=== PATIENT | male | born 1985 | race African-American/Black ===

== ENCOUNTER 2016-07-30 05:50 | Emergency (ER) | payer OTHER, SELFPAY ==
[~2016-07-30] VITALS: Ht 190.5 cm; Wt 74.8 kg
[2016-07-30 06:45] LABS: MEAN CORPUSCULAR HEMOGLOBIN 33.4 pg (27.0-33.0); MEAN CORPUSCULAR HGB CONC 33.8 g/dl (32.0-36.5); MEAN CORPUSCULAR VOLUME 98.9 fl (80.0-96.0); RED CELL DISTRIBUTION WIDTH 12.7 % (11.5-14.5); WHITE BLOOD COUNT 6.2 K/mm3 (4.0-10.0)
[2016-07-30 07:08] LABS: ALBUMIN/GLOBULIN RATIO 0.87 (1.00-1.93); ALKALINE PHOSPHATASE 58 U/L (45-117); ALT/SGPT 46 U/L (12-78); ANION GAP 9 MEQ/L (8-16); AST/SGOT 33 U/L (15-37); BILIRUBIN,DIRECT 0.1 MG/DL (0.0-0.2); BILIRUBIN,TOTAL 0.6 MG/DL (0.2-1.0); BLOOD UREA NITROGEN 14 MG/DL (7-18); CALCIUM LEVEL 8.5 MG/DL (8.5-10.1); CARBON DIOXIDE LEVEL 26 MEQ/L (21-32); CHLORIDE LEVEL 107 MEQ/L (98-107); CREATININE FOR GFR 0.98 MG/DL (0.70-1.30); GLOMERULAR FILTRATION RATE > 60.0 (>60); GLUCOSE, FASTING 118 MG/DL (70-105); POTASSIUM SERUM 3.1 MEQ/L (3.5-5.1); SODIUM LEVEL 142 MEQ/L (136-145); TOTAL PROTEIN 8.6 GM/DL (6.4-8.2)
[2016-07-30 07:14] LABS: AMPHETAMINES LEVEL URINE NEGATIVE (NEGATIVE); BENZODIAZEPINES URINE NEGATIVE (NEGATIVE); COCAINE METABOLITE URINE NEGATIVE (NEGATIVE)
[2016-07-30 07:15] LABS: CONTROL LINE INT CTR LINE PRESENT; METHADONE URINE NEGATIVE (NEGATIVE); OPIATES URINE NEGATIVE (NEGATIVE); TRICYCLIC ANTIDEPRESS URINE NEGATIVE (NEGATIVE)
[2016-07-30] MEDS ORDERED: POTASSIUM CHLORIDE 10 MEQ SR TABLET As Ordered ONE (07:37)
--- NOTE | 2016-07-30 08:00 | REPUSA ---
CLINICAL HISTORY: AMS. TECHNIQUE: Multiple axial brain CT scan sections were obtained from base to vertex without contrast a dministration. COMMENTS: The study shows normal configuration of sella turcica. There are no intra or extra-axial collections. There is no mass effect or midline shift. There is no evidence of hematoma formation. No hydrocephal us is present. No abnormal calcifications are noted. No significant abnormalities are seen either in the posterior fossa or supratentorial compartment. The sinuses and mastoid air cells are patent. IMPRESSION: No evidence of acute intracranial pathology. Thank you for your kind referral of this patient.
--- NOTE | 2016-07-30 19:29 | ECGEPIP ---
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
--- NOTE | 2016-07-31 08:48 | EDDOCDS ---
Physician Documentation [facility] Name: Chintan Alejandra Age: 31 yrs Sex: Male : 1985 Arrival Date: 07/30/2016 Time: 05:50 Bed OBSERVATION Private MD: Unknown, Family Disposition: 07/30/16 20:15 Transfer ordered to [facility]. 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 - Reason for transfer: Higher level of care. - Accepting physician is Dr. Calderón. - Condition is Stable. - Problem is an ongoing problem. - Symptoms are unchanged. Historical: - Allergies: No known drug Allergies; - Home Meds: 1. none - PMHx: Seasonal Allergies; Substance Abuse; - PSHx: none; - Social history: Smoking status: Patient uses tobacco products, heavy tobacco smoker. Patient uses alcohol street drugs, marijuana, cocaine, No barriers to communication noted, The patient speaks fluent Belgian. - Family history: Not pertinent. - : The pt / caregiver states he / she is not on anticoagulants. Home medication list is obtained from the patient. - Exposure Risk Screening:: None identified. Vital Signs: 07/30 05:58 BP 164 / 88; Pulse 96; Resp 18; Temp 97.6(O); Pulse Ox 98% on R/A; Weight 74.84 kg / mdr 164.99 lbs (M); Height 6 ft. 3 in. (190.50 cm) (R); Pain 0/10; 07:00 BP 166 / 70 (auto/); dls 07:00 Pulse 87 MON; Pulse Ox 97% ; dls 07:30 BP 142 / 82 (auto/); dls 07:30 Pulse 81 MON; Pulse Ox 98% ; dls 08:00 BP 149 / 85 (auto/); dls 08:00 Pulse 86 MON; Pulse Ox 96% ; dls 08:30 BP 144 / 72 (auto/); dls 08:30 Pulse 79 MON; Pulse Ox 99% ; dls 11:53 BP 138 / 74; Pulse 82; Resp 16; Temp 97.0(T); Pulse Ox 99% on R/A; Pain 0/10; dwg 18:00 BP 152 / 95; Pulse 88; Resp 18; Temp 98.3; Pulse Ox 96% on R/A; Pain 0/10; ttb 23:07 BP 124 / 86; Pulse 79; Resp 18; Temp 97.6; Pulse Ox 98% on R/A; Pain 0/10; tmm1 07/31 06:04 BP 119 / 67; Pulse 69; Resp 18; Temp 96.0(T); Pulse Ox 98% on R/A; Pain 0/10; slm 08:37 BP 125 / 74; Pulse 65; Resp 16; Temp 96.4(O); Pulse Ox 95% on R/A; Pain 0/10; bcj 07/30 05:58 Body Mass Index 20.62 (74.84 kg, 190.50 cm) mdr MDM: 07/30 06:38 Consult PFS/PSA/[employer]usher ordered. ml 06:38 Consult PFS/PSA/[employer] Brusher: Patient's case requires discussion with on-call ml Psychiatrist ordered. 06:38 PSA/PFS to call Nursing [employer], to enter patient data on [place] Safe Act if patient ml involuntarily admitted or transferred for SI or HI ordered. 06:38 Rn Interventional/Pulse Ox/q 15 min VS ordered. ml 06:38 Confirm accurate psychiatric medication list and times of last dosage ordered. ml 06:38 Detain Pt Until Medically/PFS Cleared ordered. ml 06:38 IV Saline Lock ordered. ml 06:38 Rhythm Strip to chart ordered. ml 06:39 ECG WITH READING ER PHYS+CARDIAG ordered. EDMS 06:40 Acetaminophen Level Ordered. EDMS 06:40 Basic Metabolic Profile Ordered. EDMS 06:40 Complete Blood Count Ordered. EDMS 06:40 Drug Eval Toxicology ED Only Ordered. EDMS 06:40 Ethyl Alcohol (ethanol) Ordered. EDMS 06:40 Liver Profile Ordered. EDMS 06:40 Salicylate Level Ordered. EDMS 06:40 Thyroid Stimulating Hormone Ordered. EDMS 06:55 CT Head Without Contrast Ordered. EDMS 07:26 Acetaminophen Level Reviewed. ml 07:26 Basic Metabolic Profile Reviewed. ml 07:26 Complete Blood Count Reviewed. ml 07:26 Drug Eval Toxicology ED Only Reviewed. ml 07:26 Liver Profile Reviewed. ml 07:26 Salicylate Level Reviewed. ml 07:26 Ethyl Alcohol (ethanol) Reviewed. ml 07:26 Thyroid Stimulating Hormone Reviewed. ml 07:26 Potassium Chloride Extended Release Tablet 40 mEq PO once ordered. ml 07:27 REGULAR+DIET ordered. EDMS 07:57 Misc. Nursing Order ordered. ml 08:36 Financial registration complete. mpb 08:45 [facility] [place] was [place] into [employer] and attached to record. mpb 11:01 REGULAR DIET PLASTIC SWARTZ+DIET ordered. EDMS 11:46 Consult PFS/PSA/[employer] Brusher complete. ml4 11:46 Consult PFS/PSA/[employer] Brusher: Patient's case requires discussion with on-call ml4 Psychiatrist complete. 11:46 PSA/PFS to call Nursing [employer], to enter patient data on [place] Safe Act if patient ml4 involuntarily admitted or transferred for SI or HI complete. 12:31 BED REQUEST+ADM ordered. EDMS 13:39 SYNTHETIC THC URINE Ordered. EDMS 17:00 Seclusion, Adult: Patient may be secluded due to violent/destructive behavior for up to ml 1 hr ordered. 17:00 ED course: per jared, this pt walked into a female pediatric room and found speaking ml to her. The pediatric patient screamed for assistance. LEXI Gonzalez immediately presented to her room. the pt and the other pediatric pt. I ordered seclusioon for an hour. mlg. 17:20 REGULAR DIET ROOM SERVICE ED+DIET ordered. EDMS 18:43 Discontinue Restraint / Seclusion ordered. ml 18:43 ED course: pt cooperative and seclusion order d/c. pt signed out to Dr skaggs at 7 pm ml mlg. 18:59 ED course: pt signed out to dr skaggs. pending psych disposition.mlg. ml 07/31 05:15 REGULAR DIET PLASTIC SWARTZ+DIET ordered. EDMS Administered Medications: 07/30 07:39 Drug: Potassium Chloride 40 mEq [potassium chloride ER 10 mEq tablet,extended release dls (4 tabs)] Route: PO; Signatures: Dispatcher [employer] EDTX Anny Vázquez MD MD ml Jobson, Karen, RN RN Julita Madera RN RN dls Treadwell, Michelle, LEXI ELLIOTT mlSven White DO DO mm11 Heather Rhodes RN RN nn1 Riky Patton, Reg Reg mpb The chart was reviewed and I authenticate all verbal orders and agree with the evaluation and treatment provided.Attachments: 08:45 [facility] Payment Agreement mpb MTDD
--- NOTE | 2016-07-31 08:48 | EDDOCDS ---
Nurse's Notes [facility] Name: Shahriar Hummel Age: 31 yrs Sex: Male : 1985 Arrival Date: 07/30/2016 Time: 05:50 Bed OBSERVATION Private MD: Matteo, Family Dr Diagnosis: Unspecified psychosis not due to a substance or known physiological condition Presentation: 07/30 05:52 Presenting complaint: EMS states: patient found wandering outside by PD, patient nn1 confused/altered. Patient does not know how long he was outside for, found with no shoes/socks or jacket. Patient admits to ETOH use tonight and smoking marijuana. States he was recently discharged from [facility], admitted to EMS he relapsed tonight. FSBS 151, 18G LAC. Adult Sepsis Screening: Patient has new or worsening altered mentation (1 point). Patient's respiratory rate is less than 22. Systolic blood pressure is greater than 100. Patient has a qSOFA score of 1- Negative Sepsis Screen. Suicide/Homicide risk assessment- the patient denies having any suicidal and/or homicidal ideations and does not present with any other emotional, behavioral or mental health complaints. Status: Patient is not a bicycle service technician or dependent. Transition of care: patient was not received from another setting of care. 05:52 Acuity: NUSRAT Level 3 nn1 05:52 Method Of Arrival: Ambulance nn1 Triage Assessment: 05:57 General: Appears in no apparent distress, Behavior is cooperative. General: Patient has nn1 periods of confusion where he speaks to himself, states "he was trying to find himself". . Pain: Denies pain. HIV screening NA for this visit Offered previously. The patient is triaged at the bedside. See Assessment in Nurses Notes section of ED record. Neurological: Level of Consciousness is awake, alert, obeys commands, Oriented to person, place, time. Neurological: Level of Consciousness is confused, Oriented to. Respiratory: Airway is patent Respiratory effort is even, unlabored, Respiratory pattern is regular, symmetrical. Respiratory: Breath sounds are clear bilaterally. GI: Abdomen is non- distended GI: Bowel sounds present X 4 quads. Abd is soft and non tender X 4 quads. Derm: Skin is normal. Historical: - Allergies: No known drug Allergies; - Home Meds: 1. none - PMHx: Seasonal Allergies; Substance Abuse; - PSHx: none; - Social history: Smoking status: Patient uses tobacco products, heavy tobacco smoker. Patient uses alcohol street drugs, marijuana, cocaine, No barriers to communication noted, The patient speaks fluent [place]. - Family history: Not pertinent. - : The pt / caregiver states he / she is not on anticoagulants. Home medication list is obtained from the patient. - Exposure Risk Screening:: None identified. Screenin:10 Screening information is obtained from the patient. Fall risk: No risks identified. dls Assistance ADL's: requires no assistance with activities of daily living. Abuse/DV Screen: The patient / caregiver reports he/she is: not in a situation that causes fear, pain or injury. Nutritional screening: No deficits noted. Advance Directives: Currently, there is no health care proxy. There is no active DNR order. There is no living will. There is no Power of Shipping And Receiving. home support is adequate. Assessment: 00:00 General: Appears in no apparent distress, comfortable, Behavior is. ttb 06:00 General: See triage assessment.. nn1 06:55 General: Patient continues to have bizarre speech and bizarre behavior, attempting to nn1 take off leads. Patient redirected, patient calm at this time. . 07:11 General: Pt to CT and returned.. dls 07:23 General: Pt states he is starting to remember things is alert and oriented awaiting lab dls and CT results.. 08:36 General: Pt laughing and pleasant only ate a few bites of breakfast frequently talking dls to himself and his food medically cleared by MD.. 09:01 General: Pt transferred to P5 report given pt remains cooperative with staff.. dls 09:35 General: Report received from Irina Hawthorne RN, pacing in room, cooperative.. dwg 10:36 General: Appears in no apparent distress, Behavior is cooperative. General: Calm and dwg cooperative presently.. Pain: Denies pain. 11:51 General: Appears in no apparent distress, Behavior is cooperative. Neurological: Level dwg of Consciousness is awake, alert, Oriented to States does not know where he lives or works. Yessi GUY attempting to find info through interview with patient.. 13:28 General: report received from MONTY Du to continue care. Pt sitting in room. Eating ttb lunch. Quiet and calm at this time. NAD noted. Security monitoring pt .. 14:30 Reassessment: Patient appears in no apparent distress at this time. ttb 14:30 General: Appears in no apparent distress, comfortable, Behavior is cooperative, flat. ttb Neurological: Level of Consciousness is awake, alert, Oriented to pt in room, appears to be praying at times, reading..... Respiratory: Airway is patent Respiratory effort is even, unlabored, Respiratory pattern is regular, symmetrical. Derm: Skin is normal. 15:30 Reassessment: Patient appears in no apparent distress at this time. pt in and out of ttb room, wandering. Appears to be curious. Attempts to leave BHU unit but calm. Able to be redirected easily with distraction. . 15:30 General: Appears in no apparent distress, comfortable. Neurological: Level of ttb Consciousness is awake, alert. Respiratory: No deficits noted. 15:59 General: pt given [place]. Continues to wander, be restless in room. Comes out of ttb room at times. Easily redirectable, calm but very flat affect. . 16:40 General: Appears in no apparent distress, comfortable, Behavior is quiet, pt walking ttb into another patients room. Non violent, remains redirectable, however clearly not acting appropriately, seems confused. aware.. 17:00 General: Appears in no apparent distress, comfortable, to be sleeping. seclusion ttb started . 17:15 Reassessment: Patient appears in no apparent distress at this time. General: Appears in ttb no apparent distress, comfortable, to be sleeping. Respiratory: No deficits noted. Airway is patent. 17:30 Reassessment: Patient appears in no apparent distress at this time. General: Appears in ttb no apparent distress, comfortable, to be sleeping. Respiratory: No deficits noted. Airway is patent. 17:45 General: Appears in no apparent distress, comfortable. Neurological: Level of ttb Consciousness is awake, alert. 18:00 General: pt calm and cooperative, remains flat. Taken off seclusion d/t time ttb expiration. Pt in bathroom. NAD noted. Security monitoring.. 19:00 General: Appears in no apparent distress, comfortable, Behavior is cooperative. kmg1 20:00 Reassessment: Patient appears in no apparent distress at this time. Remains kmg1 cooperative. Leaving room on occasion but is easily redirectable. 21:30 General: Appears in no apparent distress, comfortable, Behavior is cooperative, kmg1 Watching Happy Feet on DVD at this time. 23:16 General: Appears in no apparent distress, comfortable, Behavior is flat. General: pt slm resting quietly on stretcher security observing . Respiratory: Airway is patent Respiratory effort is even, unlabored. Derm: Skin is normal. 23:30 General: Appears in no apparent distress, Behavior is pt in bathroom on one knee in slm shower area singing to shower pt with bizarre behavior . pt redirected back to room . 07/31 00:21 General: Appears in no apparent distress, comfortable, Behavior is cooperative. slm General: pt resting on stretcher security observing . Respiratory: Airway is patent Respiratory effort is even, unlabored. Derm: Skin is normal. 01:30 General: Appears in no apparent distress, comfortable, to be sleeping. Behavior is slm quiet. General: security observing . Respiratory: No deficits noted. 02:30 General: Appears in no apparent distress, comfortable, to be sleeping. Behavior is slm cooperative, quiet. General: security observing . Respiratory: No deficits noted. Derm: Skin is normal. 03:44 General: Appears in no apparent distress, comfortable, to be sleeping. Behavior is slm quiet. General: security observing . Respiratory: Airway is patent Respiratory effort is even, unlabored. 04:40 General: Appears in no apparent distress, comfortable, to be sleeping. Behavior is slm cooperative, quiet. General: security observing . Respiratory: Airway is patent Respiratory effort is even, unlabored. 06:05 General: Appears in no apparent distress, comfortable, Behavior is cooperative. slm General: pt resting on stretcher security observing . Neurological: Level of Consciousness is alert, obeys commands. Respiratory: Airway is patent Respiratory pattern is regular. Respiratory: Airway is patent Respiratory effort is even, unlabored. 07:43 General: Appears in no apparent distress, comfortable, Behavior is cooperative. Pain: bcj Denies pain. Neurological: Level of Consciousness is awake, alert, Oriented to person, place. 08:37 General: Appears in no apparent distress, comfortable, Behavior is cooperative. Pain: bcj Denies pain. Neurological: Level of Consciousness is awake, alert. Derm: Skin is dry, Skin is pink, warm & dry. Mental Health Eval: 07/30 11:46 Mental health consult is initiated at 11:00. Status: The patient is not a ml4 bicycle service technician or dependent. [facility] Behavioral Health: The patient is not an established patient of [facility] Behavioral Health. Referral Information: Evaluation referral is generated by EMS, pt was found wandering outside by PD with no shoes/socks or jackets within his apt complex. He was confused and altered, admitted using Marijuana and ETOH. Pt was medically worked up and is now cleared, however still acting bizarre which prompted a MHE. . Subjective: The patients chief complaint is pt states, "I'm here because we are all here." Pt appears very bizarre at bedside, laughing inappropriately, states he is "trying to find himself." Pt appears somewhat pre-occupied, pauses briefly before answering questions. PSA questioned pt regarding AH and pt responded, "no other than my inner voice." It is very difficult to obtain collateral information due to pt's level of psychosis, therefore his roommate was contacted. Roommate(Krishna Forrester, ) reports pt has been residing with him and his GF for the past month after pt's relationship was terminated. Roommate feels pt was acting fine last night and unaware of previous mental health hx. Roommate states pt drank 1/2 beer and smoked Marijuana together while watching the Basket Ball game, then pt went to smoke a cigarette(with proper winter attire) on the balcony right before he went to bed. No bizarre behavior was noted, other than pt making references of his daughter. Roommate was unaware pt had a daughter, therefore was questioning him which triggered pt to "shutdown." Pt is currently in room reading a bible, roommate admits pt is a rastafari man and that is not abnormal. Pt continues to act bizarre at bedside, pulling his stretcher in and out of the room, but is easily redirected. As interview concluded, pt became tearful while talking about his Mother's . Admits she passed in 2000 after protecting him. Pt states," the world had an operation and I was selfish because I was trying to understand myself,." He is unable to explain Mother's in detail. Pt denies SI and HI. According to the triage note, it was noted pt was recently discharged from [facility] [address], however unable to obtain. . Patient's mood is appropriate. hallucinations are denied, however suspected . Mental Health history: Pt reports in 2000, he was hospitalized in [place] after "trying to understand myself." . Current Outpatient Mental Health Services: None. Current living environment is The patient currently lives with a roommate, Krishna Forrester, ) . The patient is single. Patient presents to Emergency Department with the following symptoms within the past 2 weeks: alcohol abuse, decreased appetite, delusions of grandeur, drug abuse, Auditory Hallucinations are suspected. Pt was also noted to be "talking to his food." . paranoia, poor concentration, poor impulse control, psychosis. Substance abuse: Patient uses tobacco Last use was last night. Pt states, "it doesn't really matter how much I use, it was in the past." . Substance abuse: Patient uses of Alcohol. Patient uses marijuana. Mental status exam: Patients appearance is appropriate, Patient's behavior is bizarre, Speech is normal. Affect is restricted. Mood is appropriate. Auditory Hallucinations are suspected. Visual Hallucinations are suspected. Appetite is poor. Memory is poor. Energy level is normal. Content of thought is delusional. as described above Thought process is incoherent. Cognitive level is Oriented to person, place, Patient's insight is poor. Judgement is poor. Rapport with interviewer is poor. guarded. Suicidal Ideation is denied. Homicidal ideation is denied. Disposition: Medically cleared for disposition by Anny Vázquez MD. Narrative: Awaiting Psychiatric consult... 13:38 Disposition: Psychiatric Consult is performed by phone with Dr Rose Villalta The patient ml4 is to be transferred to accepting facility due to [facility] being at capacity. [facility] Admission Criteria: The patient displays symptoms of severe psychiatric disorder resulting in disordered behavior and significant interference with his / her ability to maintain self care. Hallucinations. The patient requires continuous observation and/or control to protect self, others or property. The patient's care requires a multi-modal treatment plan under close supervision and coordination due to the complexity and severity of the patient's symptoms. The patient requires administration and monitoring of psychoactive medications by skilled medical providers due to the side effects of the psychoactive medications or significant dosage adjustments. Legal Status: Patient's legal status will be [facility] admission: 9.37. [place] Safe [place]: [place] Safe [place] is not applicable because the patient does not display any suicidal or homicidal ideations and does not pose a risk to self or others. DSM-V Differential Diagnosis: Unspecified Psychotic Disorder (F29). Narrative: Dr. Villalta believes pt is acutely psychotic and requires hospitalization. PSA will search for bed availability due to [facility] being at capacity. 13:52 Insurance Pre-Certification: Not Required, Self-pay . Narrative: PSA contacted, [facility], [address], [facility], and [place]. All facilities are at capacity. Spoke to Jenni at [facility] who reports [facility] is full, however [facility] has one bed available. Pt's chart faxed for review, awaiting a reply. 17:11 Narrative: A seclusion order was placed after pt walk into an adolescent's room [facility] [place] requesting to sing her a song. PSA redirected pt back into his room. 17:12 Narrative: PSA spoke to Nicho at [facility]'s Transfer line and confirmed ml4 receipt, awaiting a reply. 17:48 Narrative: Spoke to Nicho who reports [facility] "is getting full" therefore is [facility] now stating [facility] has beds available. Pt's chart faxed to [facility] for review, awaiting a reply. 19:33 Narrative: Pt's 2 roommates just visited pt at bedside and noted his behavior to be ml4 "bizarre. " Apparently, pt has been rastafari, however over the past 2 wks has been reading his bible continuously . He appears to be religiously pre-occupied. Additionally, pt reported to roommate his life is not worth living anymore. 20:24 Narrative: Pt has been accepted to [facility]. Accepting Physician is Dr. Calderón. [facility] [place] 21:34 Narrative: Pt's step-Mother contact information: Fiona, #[phone]. [facility] [place] 07/31 03:12 Awaiting: arrival of EMS for transfer. cl Vital Signs: 07/30 05:58 BP 164 / 88; Pulse 96; Resp 18; Temp 97.6(O); Pulse Ox 98% on R/A; Weight 74.84 kg (M); mdr Height 6 ft. 3 in. (190.50 cm) (R); Pain 0/10; 07:00 BP 166 / 70 (auto/); dls 07:00 Pulse 87 MON; Pulse Ox 97% ; dls 07:30 BP 142 / 82 (auto/); dls 07:30 Pulse 81 MON; Pulse Ox 98% ; dls 08:00 BP 149 / 85 (auto/); dls 08:00 Pulse 86 MON; Pulse Ox 96% ; dls 08:30 BP 144 / 72 (auto/); dls 08:30 Pulse 79 MON; Pulse Ox 99% ; dls 11:53 BP 138 / 74; Pulse 82; Resp 16; Temp 97.0(T); Pulse Ox 99% on R/A; Pain 0/10; dwg 18:00 BP 152 / 95; Pulse 88; Resp 18; Temp 98.3; Pulse Ox 96% on R/A; Pain 0/10; ttb 23:07 BP 124 / 86; Pulse 79; Resp 18; Temp 97.6; Pulse Ox 98% on R/A; Pain 0/10; tmm1 07/31 06:04 BP 119 / 67; Pulse 69; Resp 18; Temp 96.0(T); Pulse Ox 98% on R/A; Pain 0/10; slm 08:37 BP 125 / 74; Pulse 65; Resp 16; Temp 96.4(O); Pulse Ox 95% on R/A; Pain 0/10; bcj 07/30 05:58 Body Mass Index 20.62 (74.84 kg, 190.50 cm) mdr Vitals: 07/30 05:57 Log In Time N/A - ambulance arrival. nn1 ED Course: 05:51 Patient visited by Grace Barba, Javascript Engineer. [facility] 05:51 Unknown, Family is Private Physician. [facility] 05:51 Patient moved to [facility] 05:55 Triage Initiated nn1 05:59 Patient visited by Jameson Champion PCA. mdr 06:09 Maintain field IV. Gauge & site: 18G LAC . IV is intact, with fluids infusing freely, nn1 with good blood return. 06:47 EKG done. (by ED staff). Reviewed by Sven Castellon DO. jmv 06:48 Patient visited by Yandel Kaplan PCA. jmv 06:50 Anny Vázquez MD is Attending Physician. ml 06:50 Patient visited by Anny Vázquez MD. ml 07:09 Report received from Madhavi MILLAN. dls 07:10 The patient / caregiver is instructed regarding the plan of care and ED course. dls 07:10 No procedures done that require assistance. dls 07:11 CT Head Without Contrast Returned. dls 07:19 Julita Hawthorne, MONTY is Primary Nurse. dls 08:07 Patient visited by Julita Hawthorne RN. dls 08:11 CT Head Without Contrast Returned. EDMS 08:44 Patient name changed from Lquarius\\S\\\\S\\Leday\\S\\ to Lquarius\\S\\ \\S\\Leday. EDMS 08:45 [facility] Payment Agreement was scanned into [email or web address] and attached to record. mpb 08:54 Patient moved to [facility] pjf 09:00 Report given to Florian Isbell RN. dls 09:00 Discontinued IV lock intact, bleeding controlled, pressure dressing applied, No dls redness/swelling at site. 09:13 Patient visited by Steve Nguyen Security Aide. pjf 09:46 Patient visited by Steve Nguyen Security Aide. pjf 10:09 Patient visited by Steve Nguyen Security Aide. pjf 10:25 Patient visited by Steve Nguyen Security Aide. pjf 10:36 Patient visited by Tay Isbell, MONTY. dwg 10:43 Patient visited by Steve Nguyen Security Aide. pjf 11:09 Patient visited by Tay Isbell, MONTY. dwg 11:32 Patient visited by Tay Isbell, MONTY. dwg 11:53 Patient visited by Tay Isbell, MONTY. dwg 12:15 Psych Safety Check: Location: Psych Room. Visual Assessment: Cooperative. dwg 12:32 Patient visited by Steve Nguyen Security Aide. pjf 12:36 Psych Safety Check: Location: Psych Room. Visual Assessment: Restless. pjf 12:45 Patient visited by Steve Nguyen Security Aide. pjf 13:17 Patient visited by Steve Nguyen Security Aide. pjf 13:35 Patient visited by Steve Nguyen Security Aide. pjf 13:54 Patient visited by Steve Nguyen Security Aide. pjf 14:11 Patient visited by Stvee Nguyen Security Aide. pjf 14:30 Security observing. ttb 14:44 Patient visited by Steve Nguyen Security Aide. pjf 15:00 Patient visited by Steve Nguyen Security Aide. pjf 15:15 Psych Safety Check: Location: Psych Room. Visual Assessment: Cooperative. pjf 15:30 Security observing. ttb 15:31 Patient visited by Steve Nguyen Security Aide. pjf 15:45 Patient visited by Steve Nguyen Security Aidashu. pjf 16:01 Patient visited by Marilyn Gonzalez RN. ttb 16:15 Psych Safety Check: Location: Psych Room. Visual Assessment: Restless. pjf 16:30 Psych Safety Check: Location: Psych Room. Visual Assessment: Restless. pjf 16:32 Report received from rn - psych. triage level #1, no obs. req. \\T\\ this time. pjf 16:37 Patient moved to [facility] pjf 16:44 Patient visited by Steve Nguyen Security Aide. pjf 16:45 Security observing. ttb 17:13 Patient visited by Steve Nguyen Security Aide. pjf 17:15 Security observing. ttb 17:31 Patient visited by Steve Nguyen Security Aidashu. pjf 17:31 Patient visited by Marilyn Gonzalez RN. ttb 17:45 Security observing. ttb 17:58 Patient visited by Steve Nguyen Security Aide. pjf 18:00 Security observing. ttb 18:19 Patient visited by Steve Nguyen Security Aide. pjf 18:41 Patient visited by Steve Nguyen Security Aide. pjf 18:58 Patient visited by Sola Marin PCA. tmm1 19:15 Patient visited by Sola Marin PCA. tmm1 19:19 Attending Physician role handed off by Anny Vázquez MD mm11 19:19 Sven Castellon DO is Attending Physician. mm11 19:20 Patient moved to OBSERVATION mm11 19:34 EKG-ADULT Returned. EDMS 19:50 Psych Safety Check: Location: Psych Room. Visual Assessment: Cooperative. tmm1 20:10 Psych Safety Check: Location: Psych Room. Visual Assessment: Cooperative. tmm1 20:25 Psych Safety Check: Location: Psych Room. Visual Assessment: Cooperative. tmm1 20:41 Psych Safety Check: Location: Psych Room. Visual Assessment: Cooperative. tmm1 21:00 Psych Safety Check: Location: Psych Room. Visual Assessment: Cooperative. tmm1 21:15 Psych Safety Check: Location: Psych Room. Visual Assessment: Cooperative. tmm1 21:36 Psych Safety Check: Location: Psych Room. Visual Assessment: Cooperative. tmm1 21:50 Psych Safety Check: Location: Psych Room. Visual Assessment: Cooperative. tmm1 22:10 Psych Safety Check: Location: Psych Room. Visual Assessment: Cooperative. tmm1 22:31 Psych Safety Check: Location: Psych Room. Visual Assessment: Cooperative. tmm1 22:46 Psych Safety Check: Location: Psych Room. Visual Assessment: Cooperative. tmm1 22:47 Primary Nurse role handed off by Julita Hawthorne RN ar3 23:07 Psych Safety Check: Location: Psych Room. Visual Assessment: Cooperative. tmm1 23:16 Nicky Cervantes LPN is Primary Nurse. slm 23:17 Patient visited by Nicky Cervantes LPN. slm 23:32 Psych Safety Check: Location: Psych Room. Visual Assessment: Cooperative. tmm1 23:45 Psych Safety Check: Location: Psych Room. Visual Assessment: Cooperative. tmm1 23:51 Patient visited by Emy Mendez RN. [facility] 07/31 00:02 Psych Safety Check: Location: Psych Room. Visual Assessment: Cooperative. tmm1 00:15 Psych Safety Check: Location: Psych Room. Visual Assessment: Cooperative. tmm1 00:30 Psych Safety Check: Location: Psych Room. Visual Assessment: Cooperative. tmm1 00:45 Psych Safety Check: Location: Psych Room. Visual Assessment: Cooperative. tmm1 01:00 Psych Safety Check: Location: Psych Room. Visual Assessment: Cooperative. tmm1 01:15 Psych Safety Check: Location: Psych Room. Visual Assessment: Cooperative. tmm1 01:30 Psych Safety Check: Location: Psych Room. Visual Assessment: Cooperative. tmm1 01:48 Psych Safety Check: Location: Psych Room. Visual Assessment: Cooperative. tmm1 02:07 Psych Safety Check: Location: Psych Room. Visual Assessment: Sleeping. tmm1 02:21 Psych Safety Check: Location: Psych Room. Visual Assessment: Sleeping. tmm1 02:41 Psych Safety Check: Location: Psych Room. Visual Assessment: Cooperative. tmm1 02:48 Psych Safety Check: Location: Psych Room. Visual Assessment: Sleeping. tmm1 03:01 Psych Safety Check: Location: Psych Room. Visual Assessment: Sleeping. tmm1 03:57 Psych Safety Check: Location: Psych Room. Visual Assessment: Sleeping. tmm1 04:15 Psych Safety Check: Location: Psych Room. Visual Assessment: Sleeping. tmm1 04:31 Psych Safety Check: Location: Psych Room. Visual Assessment: Sleeping. tmm1 04:44 Psych Safety Check: Location: Psych Room. Visual Assessment: Sleeping. tmm1 04:59 Psych Safety Check: Location: Psych Room. Visual Assessment: Cooperative. tmm1 05:01 Patient visited by Nicky Cervantes LPN. slm 05:15 Psych Safety Check: Location: Psych Room. Visual Assessment: Cooperative. tmm1 05:37 Psych Safety Check: Location: Psych Room. Visual Assessment: Sleeping. tmm1 05:51 Psych Safety Check: Location: Psych Room. Visual Assessment: Cooperative. tmm1 06:06 Patient visited by Nicky Cervantes LPN. slm 06:11 Psych Safety Check: Location: Psych Room. Visual Assessment: Cooperative. tmm1 06:28 Psych Safety Check: Location: Psych Room. Visual Assessment: Cooperative. tmm1 06:46 Patient visited by Sola Marin PCA. tmm1 07:12 Patient visited by John Leggett. rn1 07:17 Patient visited by John Leggett. rn1 07:30 Patient visited by John Leggett. rn1 07:43 Appears to be sleeping. Awaiting disposition. bcj 07:43 Security observing. bcj 07:45 Patient visited by John Leggett. rn1 07:54 Patient visited by Kenneth Kent, MONTY. bcj 08:01 Patient visited by John Leggett. rn1 08:15 Patient visited by John Leggett. rn1 08:34 Patient visited by John Leggett. rn1 08:46 Patient visited by John Leggett. rn1 Administered Medications: 07/30 07:39 Drug: Potassium Chloride 40 mEq [potassium chloride ER 10 mEq tablet,extended release dls (4 tabs)] Route: PO; Order Results: Lab Order: Acetaminophen Level; SPEC07/30/16 06:09 Test: ACETAMINOPHEN LEVEL; Value: < 2.0; Range: 10.0-30.0; Abnormal: Below low normal; Units: UG/ML; Status: F Lab Order: Basic Metabolic Profile; SPEC07/30/16 06:09 Test: GLUCOSE, FASTING; Value: 118; Range: 70-105; Abnormal: Above high normal; Units: MG/DL; Status: F Test: BLOOD UREA NITROGEN; Value: 14; Range: 7-18; Units: MG/DL; Status: F Test: CREATININE FOR GFR; Value: 0.98; Range: 0.70-1.30; Units: MG/DL; Status: F Test: GLOMERULAR FILTRATION RATE; Value: > 60.0; Range: >60; Status: F Test: SODIUM LEVEL; Value: 142; Range: 136-145; Units: MEQ/L; Status: F Test: POTASSIUM SERUM; Value: 3.1; Range: 3.5-5.1; Abnormal: Below low normal; Units: MEQ/L; Status: F Test: CHLORIDE LEVEL; Value: 107; Range: 98-107; Units: MEQ/L; Status: F Test: CARBON DIOXIDE LEVEL; Value: 26; Range: 21-32; Units: MEQ/L; Status: F Test: ANION GAP; Value: 9; Range: 8-16; Units: MEQ/L; Status: F Test: CALCIUM LEVEL; Value: 8.5; Range: 8.5-10.1; Units: MG/DL; Status: F Test Note: ; Units are mL/min/1.73 m2 Chronic Kidney Disease Staging per NKF: Stage I & II GFR >=60 Normal to Mildly Decreased Stage III GFR 30-59 Moderately Decreased Stage IV GFR 15-29 Severely Decreased Stage V GFR <15 Very Little GFR Left ESRD GFR <15 on MID LEVEL BUSINESS ANALYST Lab Order: Complete Blood Count; SPEC'07/30/16 06:09 Test: WHITE BLOOD COUNT; Value: 6.2; Range: 4.0-10.0; Units: K/mm3; Status: F Test: RED BLOOD COUNT; Value: 4.02; Range: 4.30-6.10; Abnormal: Below low normal; Units: M/mm3; Status: F Test: HEMOGLOBIN; Value: 13.4; Range: 14.0-18.0; Abnormal: Below low normal; Units: g/dl; Status: F Test: HEMATOCRIT; Value: 39.7; Range: 42.0-52.0; Abnormal: Below low normal; Units: %; Status: F Test: MEAN CORPUSCULAR VOLUME; Value: 98.9; Range: 80.0-96.0; Abnormal: Above high normal; Units: fl; Status: F Test: MEAN CORPUSCULAR HEMOGLOBIN; Value: 33.4; Range: 27.0-33.0; Abnormal: Above high normal; Units: pg; Status: F Test: MEAN CORPUSCULAR HGB CONC; Value: 33.8; Range: 32.0-36.5; Units: g/dl; Status: F Test: RED CELL DISTRIBUTION WIDTH; Value: 12.7; Range: 11.5-14.5; Units: %; Status: F Test: PLATELET COUNT, AUTOMATED; Value: 151; Range: 150-450; Units: k/mm3; Status: F Lab Order: Drug Eval Toxicology ED Only; SPEC'M 07/30/16 06:09 Test: AMPHETAMINES LEVEL URINE; Value: NEGATIVE; Range: NEGATIVE; Status: F Test: BARBITURATES URINE; Value: NEGATIVE; Range: NEGATIVE; Status: F Test: BENZODIAZEPINES URINE; Value: NEGATIVE; Range: NEGATIVE; Status: F Test: CANNABINOIDS URINE; Value: POSITIVE; Range: NEGATIVE; Abnormal: Above high normal; Status: F Test: COCAINE METABOLITE URINE; Value: NEGATIVE; Range: NEGATIVE; Status: F Test: METHADONE URINE; Value: NEGATIVE; Range: NEGATIVE; Status: F Test: OPIATES URINE; Value: NEGATIVE; Range: NEGATIVE; Status: F Test: TRICYCLIC ANTIDEPRESS URINE; Value: NEGATIVE; Range: NEGATIVE; Status: F Test Note: ; FALSE POSITIVE RESULTS CAN BE CAUSED BY THE USE OF PANTOPRAZOLE (PROTONIX). Lab Order: Ethyl Alcohol (ethanol); SPEC'M 07/30/16 06:09 Test: ETHYL ALCOHOL (ETHANOL); Value: < 0.003; Range: 0.000-0.010; Units: %; Status: F Lab Order: Liver Profile; SPEC'M 07/30/16 06:09 Test: AST/SGOT; Value: 33; Range: 15-37; Units: U/L; Status: F Test: ALT/SGPT; Value: 46; Range: 12-78; Units: U/L; Status: F Test: ALKALINE PHOSPHATASE; Value: 58; Range: 45-117; Units: U/L; Status: F Test: BILIRUBIN,TOTAL; Value: 0.6; Range: 0.2-1.0; Units: MG/DL; Status: F Test: BILIRUBIN,DIRECT; Value: 0.1; Range: 0.0-0.2; Units: MG/DL; Status: F Test: TOTAL PROTEIN; Value: 8.6; Range: 6.4-8.2; Abnormal: Above high normal; Units: GM/DL; Status: F Test: ALBUMIN; Value: 4.0; Range: 3.2-5.2; Units: GM/DL; Status: F Test: ALBUMIN/GLOBULIN RATIO; Value: 0.87; Range: 1.00-1.93; Abnormal: Below low normal; Status: F Lab Order: Salicylate Level; SPEC'07/30/16 06:09 Test: SALICYLATE LEVEL; Value: 3.1; Range: 5.0-30.0; Abnormal: Below low normal; Units: MG/DL; Status: F Lab Order: Thyroid Stimulating Hormone; SPEC'07/30/16 06:09 Test: THYROID STIMULATING HORMONE; Value: 0.969; Range: 0.358-3.740; Units: uIU/ML; Status: F Radiology Order: EKG-ADULT Test: EKG-ADULT REASON FOR EXAMINATION: POSSIBLE OD; Stationary ECG Study; [facility] - ED; ; Test Date: 2016-07-30; Pat Name: SHAHRIAR HUMMEL Department:; Room: -; Gender: M 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; : 1985 Requested By: Anny Vázquez; Order Number: [id number] Reading MD: Anny Vázquez; Measurements; Intervals [place]; Rate: 84 P: 82; AK: 156 QRS: 86; QRSD: 93 T: 65; QT: 360; QTc: 428; Interpretive Statements; SINUS RHYTHM WITH SINUS ARRHYTHMIA; ST ELEVATION - PROBABLE EARLY REPOLARIZATION; ; NO OLD ECG FOR COMPARISON; Electronically Signed On 07-30-2016 19:28:40 EST by Anny Vázquez; Radiology Order: CT Head Without Contrast Test: CT Head Without Contrast REASON FOR EXAMINATION: altered ms; ; CLINICAL HISTORY: AMS.; TECHNIQUE: Multiple axial brain CT scan sections were obtained from base to vertex without contrast a; dministration.; COMMENTS:; The study shows normal configuration of sella turcica. There are no intra or extra-axial collections.; There is no mass effect or midline shift. There is no evidence of hematoma formation. No hydrocephal; us is present. No abnormal calcifications are noted.; No significant abnormalities are seen either in the posterior fossa or supratentorial compartment.; The sinuses and mastoid air cells are patent.; IMPRESSION:; No evidence of acute intracranial pathology.; Thank you for your kind referral of this patient.; ; Outcome: 20:15 ER care complete, transfer ordered by Provider. mm11 07/31 08:37 Discharge Assessment: patient administered narcotics - no. The following High Risk [facility] Discharge criteria are identified: None. Transferred to [facility]. by EMS ground [facility]. Condition: stable. CT Study completed. Property :Personal belongings accompany Pt. 08:46 Patient left the ED. [facility] Signatures: Dispatcher [employer] EDMS Anny Vázquez MD MD Emy Mendez, RN RN km Tay Isbell, RN MONTY Bisi Vizcarra RN RN [facility] Kenneth Kent RN RN Julita Strong RN RN dls Juan Jose, Ludwig, PSA PSA cl Patrick, Steve, Security Aide Securpf Yessi Gonzalez, PSA PSA ml4 Sven Castellon, DO DO mm11 Home Arzolaa, DENTAL HYGIENE PROFESSOR DENTAL HYGIENE PROFESSOR ar3 Marilyn Gonzalez, MONTY RN ttb McLear, Sola, DENTAL HYGIENE PROFESSOR DENTAL HYGIENE PROFESSOR tmm1 Nicky Cervantes,OWNER/OPERATOR OWNER/OPERATOR slGrace Moya, Javascript Engineer Unit John Nieto rn1 Heather Rhodes RN RN nn1 Jameson Champion, DENTAL HYGIENE PROFESSOR DENTAL HYGIENE PROFESSOR mdr Riky Patton, Reg Reg mpb KaplanYandel gage, DENTAL HYGIENE PROFESSOR DENTAL HYGIENE PROFESSOR jmv Corrections: (The following items were deleted from the chart) 07/30 13:57 11:46 Referral Information: Evaluation referral is generated by EMS, pt was found ml4 wandering outside by PD with no shoes/socks or jackets in a apt complex. He was confused and altered, admitted using Marijuana and ETOH. Pt was medically worked up and is now cleared, however still acting bizarre which prompted a MHE. . ml4 18:25 16:30 General: Appears in no apparent distress, comfortable, Behavior is quiet, pt now ttb ordered for seclusion dt him walking into another patients room. Non violent, remains redirectable, however clearly not acting appropriately, seems confused. . ttb 18:25 16:45 Reassessment: Patient appears in no apparent distress at this time. ttb ttb 18:25 16:45 General: Appears in no apparent distress, comfortable, to be sleeping. ttb ttb 18:25 17:00 General: Appears in no apparent distress, comfortable, to be sleeping. ttb ttb 18:25 17:45 General: ttb ttb MTDD
--- NOTE | 2016-08-02 09:49 | EDDOCDS ---
Physician Documentation [facility] Name: Chintan Alejandra Age: 31 yrs Sex: Male : 1985 Arrival Date: 07/30/2016 Time: 05:50 Bed OBSERVATION Private MD: Unknown, Family Disposition: 07/30/16 20:15 [facility]. 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 - Reason for transfer: Higher level of care. - Accepting physician is Dr. Calderón. - Condition is Stable. - Problem is an ongoing problem. - Symptoms are unchanged. Historical: - Allergies: No known drug Allergies; - Home Meds: 1. none - PMHx: Seasonal Allergies; Substance Abuse; - PSHx: none; - Social history: Smoking status: Patient uses tobacco products, heavy tobacco smoker. Patient uses alcohol street drugs, marijuana, cocaine, No barriers to communication noted, The patient speaks fluent [place]. - Family history: Not pertinent. - : The pt / caregiver states he / she is not on anticoagulants. Home medication list is obtained from the patient. - Exposure Risk Screening:: None identified. Vital Signs: 07/30 05:58 BP 164 / 88; Pulse 96; Resp 18; Temp 97.6(O); Pulse Ox 98% on R/A; Weight 74.84 kg / mdr 164.99 lbs (M); Height 6 ft. 3 in. (190.50 cm) (R); Pain 0/10; 07:00 BP 166 / 70 (auto/); dls 07:00 Pulse 87 MON; Pulse Ox 97% ; dls 07:30 BP 142 / 82 (auto/); dls 07:30 Pulse 81 MON; Pulse Ox 98% ; dls 08:00 BP 149 / 85 (auto/); dls 08:00 Pulse 86 MON; Pulse Ox 96% ; dls 08:30 BP 144 / 72 (auto/); dls 08:30 Pulse 79 MON; Pulse Ox 99% ; dls 11:53 BP 138 / 74; Pulse 82; Resp 16; Temp 97.0(T); Pulse Ox 99% on R/A; Pain 0/10; dwg 18:00 BP 152 / 95; Pulse 88; Resp 18; Temp 98.3; Pulse Ox 96% on R/A; Pain 0/10; ttb 23:07 BP 124 / 86; Pulse 79; Resp 18; Temp 97.6; Pulse Ox 98% on R/A; Pain 0/10; tmm1 07/31 06:04 BP 119 / 67; Pulse 69; Resp 18; Temp 96.0(T); Pulse Ox 98% on R/A; Pain 0/10; slm 08:37 BP 125 / 74; Pulse 65; Resp 16; Temp 96.4(O); Pulse Ox 95% on R/A; Pain 0/10; bcj 07/30 05:58 Body Mass Index 20.62 (74.84 kg, 190.50 cm) mdr MDM: 07/30 06:38 Consult PFS/PSA/Sas Programmer ordered. ml 06:38 Consult PFS/PSA/Sas Programmer: Patient's case requires discussion with on-call ml Psychiatrist ordered. 06:38 PSA/PFS to call Nursing Manufacturing Engineer Paint, to enter patient data on [place] Safe Act if patient ml involuntarily admitted or transferred for SI or HI ordered. 06:38 Bleach Maker/Pulse Ox/q 15 min VS ordered. ml 06:38 Confirm accurate psychiatric medication list and times of last dosage ordered. ml 06:38 Detain Pt Until Medically/PFS Cleared ordered. ml 06:38 IV Saline Lock ordered. ml 06:38 Rhythm Strip to chart ordered. ml 06:39 ECG WITH READING ER PHYS+CARDIAG ordered. EDMS 06:40 Acetaminophen Level Ordered. EDMS 06:40 Basic Metabolic Profile Ordered. EDMS 06:40 Complete Blood Count Ordered. EDMS 06:40 Drug Eval Toxicology ED Only Ordered. EDMS 06:40 Ethyl Alcohol (ethanol) Ordered. EDMS 06:40 Liver Profile Ordered. EDMS 06:40 Salicylate Level Ordered. EDMS 06:40 Thyroid Stimulating Hormone Ordered. EDMS 06:55 CT Head Without Contrast Ordered. EDMS 07:26 Acetaminophen Level Reviewed. ml 07:26 Basic Metabolic Profile Reviewed. ml 07:26 Complete Blood Count Reviewed. ml 07:26 Drug Eval Toxicology ED Only Reviewed. ml 07:26 Liver Profile Reviewed. ml 07:26 Salicylate Level Reviewed. ml 07:26 Ethyl Alcohol (ethanol) Reviewed. ml 07:26 Thyroid Stimulating Hormone Reviewed. ml 07:26 Potassium Chloride Extended Release Tablet 40 mEq PO once ordered. ml 07:27 REGULAR+DIET ordered. EDMS 07:57 Misc. Nursing Order ordered. ml 08:36 Financial registration complete. mpb 08:45 [facility] Payment Agreement was scanned into [employer] and attached to record. mpb 11:01 REGULAR DIET PLASTIC SWARTZ+DIET ordered. EDMS 11:46 Consult PFS/PSA/Sas Programmer complete. ml4 11:46 Consult PFS/PSA/Sas Programmer: Patient's case requires discussion with on-call ml4 Psychiatrist complete. 11:46 PSA/PFS to call Nursing Manufacturing Engineer Paint, to enter patient data [place] Safe [place] if patient ml4 involuntarily admitted or transferred for SI or HI complete. 12:31 BED REQUEST+ADM ordered. EDMS 13:39 SYNTHETIC THC URINE Ordered. EDMS 17:00 Seclusion, Adult: Patient may be secluded due to violent/destructive behavior for up to ml 1 hr ordered. 17:00 ED course: per yessi, this pt walked into a female pediatric room and found speaking ml to her. The pediatric patient screamed for assistance. PSA Yessi Gonzalez immediately presented to her room. the pt and the other pediatric pt. I ordered seclusioon for an hour. mlg. 17:20 REGULAR DIET ROOM SERVICE ED+DIET ordered. EDMS 18:43 Discontinue Restraint / Seclusion ordered. ml 18:43 ED course: pt cooperative and seclusion order d/c. pt signed out to Dr skaggs at 7 pm ml mlg. 18:59 ED course: pt signed out to dr skaggs. pending psych disposition.mlg. ml 07/31 05:15 REGULAR DIET PLASTIC SWARTZ+DIET ordered. EDMS 08/01 14:27 T-Sheet-- Draft Copy was scanned into [employer] and attached to record. gb 14:27 ECG/EKG was scanned into [employer] and attached to record. gb 14:28 Radiology Report was scanned into [employer]-GL and attached to record. gb Administered Medications: 07/30 07:39 Drug: Potassium Chloride 40 mEq [potassium chloride ER 10 mEq tablet,extended release dls (4 tabs)] Route: PO; Signatures: Dispatcher [employer] EDFL Anny Vázquez MD MD ml Jobson, Karen, RN RN kpj Scott, Debra, RN RN dls Barnhardt, Gloria, Reg Reg Yessi Henderson PSA PSA ml4 Sven Skaggs, DO DO mm11 Heather Rhodes,RN RN nn1 Riky Patton, Reg Reg mpb The chart was reviewed and I authenticate all verbal orders and agree with the evaluation and treatment provided.Attachments: 08:45 [facility] Payment Agreement mpb 08/01 14:27 T-Sheet-- Draft Copy gb 14:27 ECG/EKG gb Chart Complete MTDD
--- NOTE | 2016-08-02 09:49 | EDDOCDS ---
Nurse's Notes [facility] Name: Shahriar Hummel Age: 31 yrs Sex: Male : 1985 Arrival Date: 07/30/2016 Time: 05:50 Bed OBSERVATION Private MD: Matteo, Family Dr Diagnosis: Unspecified psychosis not due to a substance or known physiological condition Presentation: 07/30 05:52 Presenting complaint: EMS states: patient found wandering outside by PD, patient nn1 confused/altered. Patient does not know how long he was outside for, found with no shoes/socks or jacket. Patient admits to ETOH use tonight and smoking marijuana. States he was recently discharged from [facility], admitted to EMS he relapsed tonight. FSBS 151, 18G LAC. Adult Sepsis Screening: Patient has new or worsening altered mentation (1 point). Patient's respiratory rate is less than 22. Systolic blood pressure is greater than 100. Patient has a qSOFA score of 1- Negative Sepsis Screen. Suicide/Homicide risk assessment- the patient denies having any suicidal and/or homicidal ideations and does not present with any other emotional, behavioral or mental health complaints. Status: Patient is not a imaging services director or dependent. Transition of care: patient was not received from another setting of care. 05:52 Acuity: NUSRAT Level 3 nn1 05:52 Method Of Arrival: Ambulance nn1 Triage Assessment: 05:57 General: Appears in no apparent distress, Behavior is cooperative. General: Patient has nn1 periods of confusion where he speaks to himself, states "he was trying to find himself". . Pain: Denies pain. HIV screening NA for this visit Offered previously. The patient is triaged at the bedside. See Assessment in Nurses Notes section of ED record. Neurological: Level of Consciousness is awake, alert, obeys commands, Oriented to person, place, time. Neurological: Level of Consciousness is confused, Oriented to. Respiratory: Airway is patent Respiratory effort is even, unlabored, Respiratory pattern is regular, symmetrical. Respiratory: Breath sounds are clear bilaterally. GI: Abdomen is non- distended GI: Bowel sounds present X 4 quads. Abd is soft and non tender X 4 quads. Derm: Skin is normal. Historical: - Allergies: No known drug Allergies; - Home Meds: 1. none - PMHx: Seasonal Allergies; Substance Abuse; - PSHx: none; - Social history: Smoking status: Patient uses tobacco products, heavy tobacco smoker. Patient uses alcohol street drugs, marijuana, cocaine, No barriers to communication noted, The patient speaks fluent [place]. - Family history: Not pertinent. - : The pt / caregiver states he / she is not on anticoagulants. Home medication list is obtained from the patient. - Exposure Risk Screening:: None identified. Screenin:10 Screening information is obtained from the patient. Fall risk: No risks identified. dls Assistance ADL's: requires no assistance with activities of daily living. Abuse/DV Screen: The patient / caregiver reports he/she is: not in a situation that causes fear, pain or injury. Nutritional screening: No deficits noted. Advance Directives: Currently, there is no health care proxy. There is no active DNR order. There is no living will. There is no Power of Sales Support Rep. home support is adequate. Assessment: 00:00 General: Appears in no apparent distress, comfortable, Behavior is. ttb 06:00 General: See triage assessment.. nn1 06:55 General: Patient continues to have bizarre speech and bizarre behavior, attempting to nn1 take off leads. Patient redirected, patient calm at this time. . 07:11 General: Pt to CT and returned.. dls 07:23 General: Pt states he is starting to remember things is alert and oriented awaiting lab dls and CT results.. 08:36 General: Pt laughing and pleasant only ate a few bites of breakfast frequently talking dls to himself and his food medically cleared by MD.. 09:01 General: Pt transferred to P5 report given pt remains cooperative with staff.. dls 09:35 General: Report received from Irina Hawthorne RN, pacing in room, cooperative.. dwg 10:36 General: Appears in no apparent distress, Behavior is cooperative. General: Calm and dwg cooperative presently.. Pain: Denies pain. 11:51 General: Appears in no apparent distress, Behavior is cooperative. Neurological: Level dwg of Consciousness is awake, alert, Oriented to States does not know where he lives or works. Yessi GUY attempting to find info through interview with patient.. 13:28 General: report received from MONTY Du to continue care. Pt sitting in room. Eating ttb lunch. Quiet and calm at this time. NAD noted. Security monitoring pt .. 14:30 Reassessment: Patient appears in no apparent distress at this time. ttb 14:30 General: Appears in no apparent distress, comfortable, Behavior is cooperative, flat. ttb Neurological: Level of Consciousness is awake, alert, Oriented to pt in room, appears to be praying at times, reading..... Respiratory: Airway is patent Respiratory effort is even, unlabored, Respiratory pattern is regular, symmetrical. Derm: Skin is normal. 15:30 Reassessment: Patient appears in no apparent distress at this time. pt in and out of ttb room, wandering. Appears to be curious. Attempts to leave BHU unit but calm. Able to be redirected easily with distraction. . 15:30 General: Appears in no apparent distress, comfortable. Neurological: Level of ttb Consciousness is awake, alert. Respiratory: No deficits noted. 15:59 General: pt given [place]. Continues to wander, be restless in room. Comes out of ttb room at times. Easily redirectable, calm but very flat affect. . 16:40 General: Appears in no apparent distress, comfortable, Behavior is quiet, pt walking ttb into another patients room. Non violent, remains redirectable, however clearly not acting appropriately, seems confused. aware.. 17:00 General: Appears in no apparent distress, comfortable, to be sleeping. seclusion ttb started . 17:15 Reassessment: Patient appears in no apparent distress at this time. General: Appears in ttb no apparent distress, comfortable, to be sleeping. Respiratory: No deficits noted. Airway is patent. 17:30 Reassessment: Patient appears in no apparent distress at this time. General: Appears in ttb no apparent distress, comfortable, to be sleeping. Respiratory: No deficits noted. Airway is patent. 17:45 General: Appears in no apparent distress, comfortable. Neurological: Level of ttb Consciousness is awake, alert. 18:00 General: pt calm and cooperative, remains flat. Taken off seclusion d/t time ttb expiration. Pt in bathroom. NAD noted. Security monitoring.. 19:00 General: Appears in no apparent distress, comfortable, Behavior is cooperative. kmg1 20:00 Reassessment: Patient appears in no apparent distress at this time. Remains kmg1 cooperative. Leaving room on occasion but is easily redirectable. 21:30 General: Appears in no apparent distress, comfortable, Behavior is cooperative, kmg1 Watching Happy Feet on DVD at this time. 23:16 General: Appears in no apparent distress, comfortable, Behavior is flat. General: pt slm resting quietly on stretcher security observing . Respiratory: Airway is patent Respiratory effort is even, unlabored. Derm: Skin is normal. 23:30 General: Appears in no apparent distress, Behavior is pt in bathroom on one knee in slm shower area singing to shower pt with bizarre behavior . pt redirected back to room . 07/31 00:21 General: Appears in no apparent distress, comfortable, Behavior is cooperative. slm General: pt resting on stretcher security observing . Respiratory: Airway is patent Respiratory effort is even, unlabored. Derm: Skin is normal. 01:30 General: Appears in no apparent distress, comfortable, to be sleeping. Behavior is slm quiet. General: security observing . Respiratory: No deficits noted. 02:30 General: Appears in no apparent distress, comfortable, to be sleeping. Behavior is slm cooperative, quiet. General: security observing . Respiratory: No deficits noted. Derm: Skin is normal. 03:44 General: Appears in no apparent distress, comfortable, to be sleeping. Behavior is slm quiet. General: security observing . Respiratory: Airway is patent Respiratory effort is even, unlabored. 04:40 General: Appears in no apparent distress, comfortable, to be sleeping. Behavior is slm cooperative, quiet. General: security observing . Respiratory: Airway is patent Respiratory effort is even, unlabored. 06:05 General: Appears in no apparent distress, comfortable, Behavior is cooperative. slm General: pt resting on stretcher security observing . Neurological: Level of Consciousness is alert, obeys commands. Respiratory: Airway is patent Respiratory pattern is regular. Respiratory: Airway is patent Respiratory effort is even, unlabored. 07:43 General: Appears in no apparent distress, comfortable, Behavior is cooperative. Pain: bcj Denies pain. Neurological: Level of Consciousness is awake, alert, Oriented to person, place. 08:37 General: Appears in no apparent distress, comfortable, Behavior is cooperative. Pain: bcj Denies pain. Neurological: Level of Consciousness is awake, alert. Derm: Skin is dry, Skin is pink, warm & dry. Mental Health Eval: 07/30 11:46 Mental health consult is initiated at 11:00. Status: The patient is not a ml4 imaging services director or dependent. [facility] Behavioral Health: The patient is not an established patient of [facility] Behavioral Health. Referral Information: Evaluation referral is generated by EMS, pt was found wandering outside by PD with no shoes/socks or jackets within his apt complex. He was confused and altered, admitted using Marijuana and ETOH. Pt was medically worked up and is now cleared, however still acting bizarre which prompted a MHE. . Subjective: The patients chief complaint is pt states, "I'm here because we are all here." Pt appears very bizarre at bedside, laughing inappropriately, states he is "trying to find himself." Pt appears somewhat pre-occupied, pauses briefly before answering questions. PSA questioned pt regarding AH and pt responded, "no other than my inner voice." It is very difficult to obtain collateral information due to pt's level of psychosis, therefore his roommate was contacted. Roommate(Krishna Forrester, ) reports pt has been residing with him and his GF for the past month after pt's relationship was terminated. Roommate feels pt was acting fine last night and unaware of previous mental health hx. Roommate states pt drank 1/2 beer and smoked Marijuana together while watching the Basket Ball game, then pt went to smoke a cigarette(with proper winter attire) on the balcony right before he went to bed. No bizarre behavior was noted, other than pt making references of his daughter. Roommate was unaware pt had a daughter, therefore was questioning him which triggered pt to "shutdown." Pt is currently in room reading a bible, roommate admits pt is a druze man and that is not abnormal. Pt continues to act bizarre at bedside, pulling his stretcher in and out of the room, but is easily redirected. As interview concluded, pt became tearful while talking about his Mother's . Admits she passed in 2000 after protecting him. Pt states," the world had an operation and I was selfish because I was trying to understand myself,." He is unable to explain Mother's in detail. Pt denies SI and HI. According to the triage note, it was noted pt was recently discharged from [facility] [address], however unable to obtain. . Patient's mood is appropriate. hallucinations are denied, however suspected . Mental Health history: Pt reports in 2000, he was hospitalized in [place] after "trying to understand myself." . Current Outpatient Mental Health Services: None. Current living environment is The patient currently lives with a roommate, Krishna Forrester, ) . The patient is single. Patient presents to Emergency Department with the following symptoms within the past 2 weeks: alcohol abuse, decreased appetite, delusions of grandeur, drug abuse, Auditory Hallucinations are suspected. Pt was also noted to be "talking to his food." . paranoia, poor concentration, poor impulse control, psychosis. Substance abuse: Patient uses tobacco Last use was last night. Pt states, "it doesn't really matter how much I use, it was in the past." . Substance abuse: Patient uses of Alcohol. Patient uses marijuana. Mental status exam: Patients appearance is appropriate, Patient's behavior is bizarre, Speech is normal. Affect is restricted. Mood is appropriate. Auditory Hallucinations are suspected. Visual Hallucinations are suspected. Appetite is poor. Memory is poor. Energy level is normal. Content of thought is delusional. as described above Thought process is incoherent. Cognitive level is Oriented to person, place, Patient's insight is poor. Judgement is poor. Rapport with interviewer is poor. guarded. Suicidal Ideation is denied. Homicidal ideation is denied. Disposition: Medically cleared for disposition by Anny Vázquez MD. Narrative: Awaiting Psychiatric consult... 13:38 Disposition: Psychiatric Consult is performed by phone with Dr Rose Villalta The patient ml4 is to be transferred to accepting facility due to [facility] being at capacity. [facility] Admission Criteria: The patient displays symptoms of severe psychiatric disorder resulting in disordered behavior and significant interference with his / her ability to maintain self care. Hallucinations. The patient requires continuous observation and/or control to protect self, others or property. The patient's care requires a multi-modal treatment plan under close supervision and coordination due to the complexity and severity of the patient's symptoms. The patient requires administration and monitoring of psychoactive medications by skilled medical providers due to the side effects of the psychoactive medications or significant dosage adjustments. Legal Status: Patient's legal status will be [facility] admission: 9.37. [place] Safe [place] Safe [place] is [place] because the patient does not display any suicidal or homicidal ideations and does not pose a risk to self or others. DSM-V Differential Diagnosis: Unspecified Psychotic Disorder (F29). Narrative: Dr. Villalta believes pt is acutely psychotic and requires hospitalization. PSA will search for bed availability due to [facility] being at capacity. 13:52 Insurance Pre-Certification: Not Required, Self-pay . Narrative: PSA contacted, [facility], [address], Health system, and [facility]. All facilities are at capacity. Spoke to Jenni at [facility] who reports [facility] is full, however [facility] has one bed available. Pt's chart faxed for review, awaiting a reply. 17:11 Narrative: A seclusion order was placed after pt walk into an adolescent's room [facility] requesting to sing her a song. PSA redirected pt back into his room. 17:12 Narrative: PSA spoke to Nicho at [facility]'s Transfer line and confirmed ml4 receipt, awaiting a reply. 17:48 Narrative: Spoke to Nicho who reports [facility] "is getting full" therefore is [facility] now stating [facility] has beds available. Pt's chart faxed to [facility] for review, awaiting a reply. 19:33 Narrative: Pt's 2 roommates just visited pt at bedside and noted his behavior to be ml4 "bizarre. " Apparently, pt has been druze, however over the past 2 wks has been reading his bible continuously . He appears to be religiously pre-occupied. Additionally, pt reported to roommate his life is not worth living anymore. 20:24 Narrative: Pt has been accepted to [facility]. Accepting Physician is Dr. Calderón. [facility] 21:34 Narrative: Pt's step-Mother contact information: Fiona, #[phone]. [facility] 07/31 03:12 Awaiting: arrival of EMS for transfer. cl Vital Signs: 07/30 05:58 BP 164 / 88; Pulse 96; Resp 18; Temp 97.6(O); Pulse Ox 98% on R/A; Weight 74.84 kg (M); mdr Height 6 ft. 3 in. (190.50 cm) (R); Pain 0/10; 07:00 BP 166 / 70 (auto/); dls 07:00 Pulse 87 MON; Pulse Ox 97% ; dls 07:30 BP 142 / 82 (auto/); dls 07:30 Pulse 81 MON; Pulse Ox 98% ; dls 08:00 BP 149 / 85 (auto/); dls 08:00 Pulse 86 MON; Pulse Ox 96% ; dls 08:30 BP 144 / 72 (auto/); dls 08:30 Pulse 79 MON; Pulse Ox 99% ; dls 11:53 BP 138 / 74; Pulse 82; Resp 16; Temp 97.0(T); Pulse Ox 99% on R/A; Pain 0/10; dwg 18:00 BP 152 / 95; Pulse 88; Resp 18; Temp 98.3; Pulse Ox 96% on R/A; Pain 0/10; ttb 23:07 BP 124 / 86; Pulse 79; Resp 18; Temp 97.6; Pulse Ox 98% on R/A; Pain 0/10; tmm1 07/31 06:04 BP 119 / 67; Pulse 69; Resp 18; Temp 96.0(T); Pulse Ox 98% on R/A; Pain 0/10; slm 08:37 BP 125 / 74; Pulse 65; Resp 16; Temp 96.4(O); Pulse Ox 95% on R/A; Pain 0/10; bcj 07/30 05:58 Body Mass Index 20.62 (74.84 kg, 190.50 cm) mdr Vitals: 07/30 05:57 Log In Time N/A - ambulance arrival. nn1 ED Course: 05:51 Patient visited by Grace Barba, Clinical Data Programmer. [facility] 05:51 Unknown, Family is Private Physician. [facility] 05:51 Patient moved to [facility] 05:55 Triage Initiated nn1 05:59 Patient visited by Jameson Champion PCA. mdr 06:09 Maintain field IV. Gauge & site: 18G LAC . IV is intact, with fluids infusing freely, nn1 with good blood return. 06:47 EKG done. (by ED staff). Reviewed by Sven Castellon DO. jmv 06:48 Patient visited by Yandel Kaplan PCA. jmv 06:50 Anny Vázquez MD is Attending Physician. ml 06:50 Patient visited by Anny Vázquez MD. ml 07:09 Report received from Madhavi MILLAN. dls 07:10 The patient / caregiver is instructed regarding the plan of care and ED course. dls 07:10 No procedures done that require assistance. dls 07:11 CT Head Without Contrast Returned. dls 07:19 Julita Hawthorne, MONTY is Primary Nurse. dls 08:07 Patient visited by Julita Hawthorne RN. dls 08:11 CT Head Without Contrast Returned. EDMS 08:44 Patient name changed from Lquarius\\S\\\\S\\Leday\\S\\ to Lquarius\\S\\ \\S\\Leday. EDMS 08:45 [facility] [place] Agreement was scanned into [employer] and attached to record. mpb 08:54 Patient moved to [facility] pjf 09:00 Report given to Florian Isbell RN. dls 09:00 Discontinued IV lock intact, bleeding controlled, pressure dressing applied, No dls redness/swelling at site. 09:13 Patient visited by Steve Nguyen Security Aide. pjf 09:46 Patient visited by Steve Nguyen Security Aide. pjf 10:09 Patient visited by Steve Nguyen Security Aide. pjf 10:25 Patient visited by Steve Nguyen Security Aide. pjf 10:36 Patient visited by Tay Isbell, MONTY. dwg 10:43 Patient visited by Steve Nguyen Security Aide. pjf 11:09 Patient visited by Tay Isbell, MONTY. dwg 11:32 Patient visited by Tay Isbell, MONTY. dwg 11:53 Patient visited by Tay Isbell, MONTY. dwg 12:15 Psych Safety Check: Location: Psych Room. Visual Assessment: Cooperative. dwg 12:32 Patient visited by Steve Nguyen Security Aide. pjf 12:36 Psych Safety Check: Location: Psych Room. Visual Assessment: Restless. pjf 12:45 Patient visited by Steve Nguyen Security Aide. pjf 13:17 Patient visited by Steve Nguyen Security Aide. pjf 13:35 Patient visited by Steve Nguyen Security Aide. pjf 13:54 Patient visited by Steve Nguyen Security Aide. pjf 14:11 Patient visited by Steve Nguyen Security Aide. pjf 14:30 Security observing. ttb 14:44 Patient visited by Steve Nguyen Security Aide. pjf 15:00 Patient visited by Steve Nguyen Security Aide. pjf 15:15 Psych Safety Check: Location: Psych Room. Visual Assessment: Cooperative. pjf 15:30 Security observing. ttb 15:31 Patient visited by Steve Nguyen Security Aide. pjf 15:45 Patient visited by Steve Nguyen Security Aidashu. pjf 16:01 Patient visited by Marilyn Gonzalez RN. ttb 16:15 Psych Safety Check: Location: Psych Room. Visual Assessment: Restless. pjf 16:30 Psych Safety Check: Location: Psych Room. Visual Assessment: Restless. pjf 16:32 Report received from rn - psych. triage level #1, no obs. req. \\T\\ this time. pjf 16:37 Patient moved to [facility] pjf 16:44 Patient visited by Steve Nguyen Security Aide. pjf 16:45 Security observing. ttb 17:13 Patient visited by Steve Nguyen Security Aide. pjf 17:15 Security observing. ttb 17:31 Patient visited by Steve Nguyen Security Aidashu. pjf 17:31 Patient visited by Marilyn Gonzalez RN. ttb 17:45 Security observing. ttb 17:58 Patient visited by Steve Nguyen Security Aide. pjf 18:00 Security observing. ttb 18:19 Patient visited by Steve Nguyen Security Aide. pjf 18:41 Patient visited by Steve Nguyen Security Aide. pjf 18:58 Patient visited by Sola Marin PCA. tmm1 19:15 Patient visited by Sola Marin PCA. tmm1 19:19 Attending Physician role handed off by Anny Vázquez MD mm11 19:19 Sven Castellon DO is Attending Physician. mm11 19:20 Patient moved to OBSERVATION mm11 19:34 EKG-ADULT Returned. EDMS 19:50 Psych Safety Check: Location: Psych Room. Visual Assessment: Cooperative. tmm1 20:10 Psych Safety Check: Location: Psych Room. Visual Assessment: Cooperative. tmm1 20:25 Psych Safety Check: Location: Psych Room. Visual Assessment: Cooperative. tmm1 20:41 Psych Safety Check: Location: Psych Room. Visual Assessment: Cooperative. tmm1 21:00 Psych Safety Check: Location: Psych Room. Visual Assessment: Cooperative. tmm1 21:15 Psych Safety Check: Location: Psych Room. Visual Assessment: Cooperative. tmm1 21:36 Psych Safety Check: Location: Psych Room. Visual Assessment: Cooperative. tmm1 21:50 Psych Safety Check: Location: Psych Room. Visual Assessment: Cooperative. tmm1 22:10 Psych Safety Check: Location: Psych Room. Visual Assessment: Cooperative. tmm1 22:31 Psych Safety Check: Location: Psych Room. Visual Assessment: Cooperative. tmm1 22:46 Psych Safety Check: Location: Psych Room. Visual Assessment: Cooperative. tmm1 22:47 Primary Nurse role handed off by Julita Hawthorne RN ar3 23:07 Psych Safety Check: Location: Psych Room. Visual Assessment: Cooperative. tmm1 23:16 Nicky Cervantes LPN is Primary Nurse. slm 23:17 Patient visited by Nicky Cervantes LPN. slm 23:32 Psych Safety Check: Location: Psych Room. Visual Assessment: Cooperative. tmm1 23:45 Psych Safety Check: Location: Psych Room. Visual Assessment: Cooperative. tmm1 23:51 Patient visited by Emy Mendez RN. [facility] 07/31 00:02 Psych Safety Check: Location: Psych Room. Visual Assessment: Cooperative. tmm1 00:15 Psych Safety Check: Location: Psych Room. Visual Assessment: Cooperative. tmm1 00:30 Psych Safety Check: Location: Psych Room. Visual Assessment: Cooperative. tmm1 00:45 Psych Safety Check: Location: Psych Room. Visual Assessment: Cooperative. tmm1 01:00 Psych Safety Check: Location: Psych Room. Visual Assessment: Cooperative. tmm1 01:15 Psych Safety Check: Location: Psych Room. Visual Assessment: Cooperative. tmm1 01:30 Psych Safety Check: Location: Psych Room. Visual Assessment: Cooperative. tmm1 01:48 Psych Safety Check: Location: Psych Room. Visual Assessment: Cooperative. tmm1 02:07 Psych Safety Check: Location: Psych Room. Visual Assessment: Sleeping. tmm1 02:21 Psych Safety Check: Location: Psych Room. Visual Assessment: Sleeping. tmm1 02:41 Psych Safety Check: Location: Psych Room. Visual Assessment: Cooperative. tmm1 02:48 Psych Safety Check: Location: Psych Room. Visual Assessment: Sleeping. tmm1 03:01 Psych Safety Check: Location: Psych Room. Visual Assessment: Sleeping. tmm1 03:57 Psych Safety Check: Location: Psych Room. Visual Assessment: Sleeping. tmm1 04:15 Psych Safety Check: Location: Psych Room. Visual Assessment: Sleeping. tmm1 04:31 Psych Safety Check: Location: Psych Room. Visual Assessment: Sleeping. tmm1 04:44 Psych Safety Check: Location: Psych Room. Visual Assessment: Sleeping. tmm1 04:59 Psych Safety Check: Location: Psych Room. Visual Assessment: Cooperative. tmm1 05:01 Patient visited by Nicky Cervantes LPN. slm 05:15 Psych Safety Check: Location: Psych Room. Visual Assessment: Cooperative. tmm1 05:37 Psych Safety Check: Location: Psych Room. Visual Assessment: Sleeping. tmm1 05:51 Psych Safety Check: Location: Psych Room. Visual Assessment: Cooperative. tmm1 06:06 Patient visited by Nicky Cervantes LPN. slm 06:11 Psych Safety Check: Location: Psych Room. Visual Assessment: Cooperative. tmm1 06:28 Psych Safety Check: Location: Psych Room. Visual Assessment: Cooperative. tmm1 06:46 Patient visited by Sola Marin PCA. tmm1 07:12 Patient visited by John Leggett. rn1 07:17 Patient visited by John Leggett. rn1 07:30 Patient visited by John Leggett. rn1 07:43 Appears to be sleeping. Awaiting disposition. bcj 07:43 Security observing. bcj 07:45 Patient visited by John Leggett. rn1 07:54 Patient visited by Kenneth Kent, MONTY. bcj 08:01 Patient visited by John Leggett. rn1 08:15 Patient visited by John Leggett. rn1 08:34 Patient visited by John Leggett. rn1 08:46 Patient visited by John Leggett. rn1 08/01 14:27 T-Sheet-- Draft Copy was scanned into [employer] and attached to record. gb 14:27 ECG/EKG was scanned into [employer] and attached to record. gb 14:28 Radiology Report was scanned into [employer] and attached to record. gb Administered Medications: 07/30 07:39 Drug: Potassium Chloride 40 mEq [potassium chloride ER 10 mEq tablet,extended release dls (4 tabs)] Route: PO; Order Results: Lab Order: Acetaminophen Level; SPEC'M 07/30/16 06:09 Test: ACETAMINOPHEN LEVEL; Value: < 2.0; Range: 10.0-30.0; Abnormal: Below low normal; Units: UG/ML; Status: F Lab Order: Basic Metabolic Profile; SPEC'M 07/30/16 06:09 Test: GLUCOSE, FASTING; Value: 118; Range: 70-105; Abnormal: Above high normal; Units: MG/DL; Status: F Test: BLOOD UREA NITROGEN; Value: 14; Range: 7-18; Units: MG/DL; Status: F Test: CREATININE FOR GFR; Value: 0.98; Range: 0.70-1.30; Units: MG/DL; Status: F Test: GLOMERULAR FILTRATION RATE; Value: > 60.0; Range: >60; Status: F Test: SODIUM LEVEL; Value: 142; Range: 136-145; Units: MEQ/L; Status: F Test: POTASSIUM SERUM; Value: 3.1; Range: 3.5-5.1; Abnormal: Below low normal; Units: MEQ/L; Status: F Test: CHLORIDE LEVEL; Value: 107; Range: 98-107; Units: MEQ/L; Status: F Test: CARBON DIOXIDE LEVEL; Value: 26; Range: 21-32; Units: MEQ/L; Status: F Test: ANION GAP; Value: 9; Range: 8-16; Units: MEQ/L; Status: F Test: CALCIUM LEVEL; Value: 8.5; Range: 8.5-10.1; Units: MG/DL; Status: F Test Note: ; Units are mL/min/1.73 m2 Chronic Kidney Disease Staging per NKF: Stage I & II GFR >=60 Normal to Mildly Decreased Stage III GFR 30-59 Moderately Decreased Stage IV GFR 15-29 Severely Decreased Stage V GFR <15 Very Little GFR Left ESRD GFR <15 on DROSSER Lab Order: Complete Blood Count; SPEC'M 07/30/16 06:09 Test: WHITE BLOOD COUNT; Value: 6.2; Range: 4.0-10.0; Units: K/mm3; Status: F Test: RED BLOOD COUNT; Value: 4.02; Range: 4.30-6.10; Abnormal: Below low normal; Units: M/mm3; Status: F Test: HEMOGLOBIN; Value: 13.4; Range: 14.0-18.0; Abnormal: Below low normal; Units: g/dl; Status: F Test: HEMATOCRIT; Value: 39.7; Range: 42.0-52.0; Abnormal: Below low normal; Units: %; Status: F Test: MEAN CORPUSCULAR VOLUME; Value: 98.9; Range: 80.0-96.0; Abnormal: Above high normal; Units: fl; Status: F Test: MEAN CORPUSCULAR HEMOGLOBIN; Value: 33.4; Range: 27.0-33.0; Abnormal: Above high normal; Units: pg; Status: F Test: MEAN CORPUSCULAR HGB CONC; Value: 33.8; Range: 32.0-36.5; Units: g/dl; Status: F Test: RED CELL DISTRIBUTION WIDTH; Value: 12.7; Range: 11.5-14.5; Units: %; Status: F Test: PLATELET COUNT, AUTOMATED; Value: 151; Range: 150-450; Units: k/mm3; Status: F Lab Order: Drug Eval Toxicology ED Only; SPEC'M 07/30/16 06:09 Test: AMPHETAMINES LEVEL URINE; Value: NEGATIVE; Range: NEGATIVE; Status: F Test: BARBITURATES URINE; Value: NEGATIVE; Range: NEGATIVE; Status: F Test: BENZODIAZEPINES URINE; Value: NEGATIVE; Range: NEGATIVE; Status: F Test: CANNABINOIDS URINE; Value: POSITIVE; Range: NEGATIVE; Abnormal: Above high normal; Status: F Test: COCAINE METABOLITE URINE; Value: NEGATIVE; Range: NEGATIVE; Status: F Test: METHADONE URINE; Value: NEGATIVE; Range: NEGATIVE; Status: F Test: OPIATES URINE; Value: NEGATIVE; Range: NEGATIVE; Status: F Test: TRICYCLIC ANTIDEPRESS URINE; Value: NEGATIVE; Range: NEGATIVE; Status: F Test Note: ; FALSE POSITIVE RESULTS CAN BE CAUSED BY THE USE OF PANTOPRAZOLE (PROTONIX). Lab Order: Ethyl Alcohol (ethanol); SPEC'M 07/30/16 06:09 Test: ETHYL ALCOHOL (ETHANOL); Value: < 0.003; Range: 0.000-0.010; Units: %; Status: F Lab Order: Liver Profile; SPEC'M 07/30/16 06:09 Test: AST/SGOT; Value: 33; Range: 15-37; Units: U/L; Status: F Test: ALT/SGPT; Value: 46; Range: 12-78; Units: U/L; Status: F Test: ALKALINE PHOSPHATASE; Value: 58; Range: 45-117; Units: U/L; Status: F Test: BILIRUBIN,TOTAL; Value: 0.6; Range: 0.2-1.0; Units: MG/DL; Status: F Test: BILIRUBIN,DIRECT; Value: 0.1; Range: 0.0-0.2; Units: MG/DL; Status: F Test: TOTAL PROTEIN; Value: 8.6; Range: 6.4-8.2; Abnormal: Above high normal; Units: GM/DL; Status: F Test: ALBUMIN; Value: 4.0; Range: 3.2-5.2; Units: GM/DL; Status: F Test: ALBUMIN/GLOBULIN RATIO; Value: 0.87; Range: 1.00-1.93; Abnormal: Below low normal; Status: F Lab Order: Salicylate Level; SPEC'M 07/30/16 06:09 Test: SALICYLATE LEVEL; Value: 3.1; Range: 5.0-30.0; Abnormal: Below low normal; Units: MG/DL; Status: F Lab Order: Thyroid Stimulating Hormone; SPEC'M 07/30/16 06:09 Test: THYROID STIMULATING HORMONE; Value: 0.969; Range: 0.358-3.740; Units: uIU/ML; Status: F Radiology Order: EKG-ADULT Test: EKG-ADULT REASON FOR EXAMINATION: POSSIBLE OD; Stationary ECG Study; [facility] - ED; ; Test Date: 2016-07-30; Pat Name: SHAHRIAR HUMMEL Department:; Room: -; 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; : 1985 Requested By: Anny Vázquez; Order Number: [id number] Reading MD: Anny Vázquez; Measurements; Intervals [place]; Rate: 84 P: 82; ND: 156 QRS: 86; QRSD: 93 T: 65; QT: 360; QTc: 428; Interpretive Statements; SINUS RHYTHM WITH SINUS ARRHYTHMIA; ST ELEVATION - PROBABLE EARLY REPOLARIZATION; ; NO OLD ECG FOR COMPARISON; Electronically Signed On 07-30-2016 19:28:40 EST by Anny Vázquez; Radiology Order: CT Head Without Contrast Test: CT Head Without Contrast REASON FOR EXAMINATION: altered ms; ; CLINICAL HISTORY: AMS.; TECHNIQUE: Multiple axial brain CT scan sections were obtained from base to vertex without contrast a; dministration.; COMMENTS:; The study shows normal configuration of sella turcica. There are no intra or extra-axial collections.; There is no mass effect or midline shift. There is no evidence of hematoma formation. No hydrocephal; us is present. No abnormal calcifications are noted.; No significant abnormalities are seen either in the posterior fossa or supratentorial compartment.; The sinuses and mastoid air cells are patent.; IMPRESSION:; No evidence of acute intracranial pathology.; Thank you for your kind referral of this patient.; ; Outcome: 20:15 ER care complete, transfer ordered by Provider. mm11 07/31 08:37 Discharge Assessment: patient administered narcotics - no. The following High Risk [facility] Discharge criteria are identified: None. Transferred to [facility]. by EMS ground [facility]. Condition: stable. CT Study completed. Property :Personal belongings accompany Pt. 08:46 Patient left the ED. [facility] Signatures: Dispatcher [employer] EDMS Anny Vázquez MD MD ml Garrison, Kelly, RN RN kmTay Alicia, Bisi Robin RN, RN RN kpj Johnson, Bruce, Julita Matute RN, RN RN dls Lavin, Chris, PSA PSA cl Barrohan, Anisha, Reg Reg gb Steve Nguyen, Security Aide Securf Yessi Gonzalez, PSA PSA ml4 Ravinder Sven, DO DO mm11 Aydee Arzola, CONTROL TOWER OPERATOR CONTROL TOWER OPERATOR ar3 Marilyn Gonzalez, RN RN ttb Tomas, Sola, CONTROL TOWER OPERATOR CONTROL TOWER OPERATOR tmm1 Nicky Cervantes,MULTIPLE WIRE SAWYER MULTIPLE WIRE SAWYER slm Grace Barba, Clinical Data Programmer Unit John Nieto rn1 Heather Rhodes,MONTY RN nn1 Akira, Jameson, CONTROL TOWER OPERATOR CONTROL TOWER OPERATOR mdr Riky Patton, Reg Reg mpb Kaplan, Yandel, CONTROL TOWER OPERATOR CONTROL TOWER OPERATOR jmv Corrections: (The following items were deleted from the chart) 07/30 13:57 11:46 Referral Information: Evaluation referral is generated by EMS, pt was found ml4 wandering outside by PD with no shoes/socks or jackets in a apt complex. He was confused and altered, admitted using Marijuana and ETOH. Pt was medically worked up and is now cleared, however still acting bizarre which prompted a MHE. . ml4 18:25 16:30 General: Appears in no apparent distress, comfortable, Behavior is quiet, pt now ttb ordered for seclusion dt him walking into another patients room. Non violent, remains redirectable, however clearly not acting appropriately, seems confused. . ttb 18:25 16:45 Reassessment: Patient appears in no apparent distress at this time. ttb ttb 18:25 16:45 General: Appears in no apparent distress, comfortable, to be sleeping. ttb ttb 18:25 17:00 General: Appears in no apparent distress, comfortable, to be sleeping. ttb ttb 18:25 17:45 General: ttb ttb Chart Complete MTDD
--- NOTE | 2016-08-02 09:49 | EDDOCDS ---
Physician Documentation [facility] Name: Chintan Alejandra Age: 31 yrs Sex: Male : 1985 Arrival Date: 07/30/2016 Time: 05:50 Bed OBSERVATION Private MD: Unknown, Family Disposition: 07/30/16 20:15 Transfer ordered to [facility]. 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 - Reason for transfer: Higher level of care. - Accepting physician is Dr. Calderón. - Condition is Stable. - Problem is an ongoing problem. - Symptoms are unchanged. Historical: - Allergies: No known drug Allergies; - Home Meds: 1. none - PMHx: Seasonal Allergies; Substance Abuse; - PSHx: none; - Social history: Smoking status: Patient uses tobacco products, heavy tobacco smoker. Patient uses alcohol street drugs, marijuana, cocaine, No barriers to communication noted, The patient speaks fluent Tristanian. - Family history: Not pertinent. - : The pt / caregiver states he / she is not on anticoagulants. Home medication list is obtained from the patient. - Exposure Risk Screening:: None identified. Vital Signs: 07/30 05:58 BP 164 / 88; Pulse 96; Resp 18; Temp 97.6(O); Pulse Ox 98% on R/A; Weight 74.84 kg / mdr 164.99 lbs (M); Height 6 ft. 3 in. (190.50 cm) (R); Pain 0/10; 07:00 BP 166 / 70 (auto/); dls 07:00 Pulse 87 MON; Pulse Ox 97% ; dls 07:30 BP 142 / 82 (auto/); dls 07:30 Pulse 81 MON; Pulse Ox 98% ; dls 08:00 BP 149 / 85 (auto/); dls 08:00 Pulse 86 MON; Pulse Ox 96% ; dls 08:30 BP 144 / 72 (auto/); dls 08:30 Pulse 79 MON; Pulse Ox 99% ; dls 11:53 BP 138 / 74; Pulse 82; Resp 16; Temp 97.0(T); Pulse Ox 99% on R/A; Pain 0/10; dwg 18:00 BP 152 / 95; Pulse 88; Resp 18; Temp 98.3; Pulse Ox 96% on R/A; Pain 0/10; ttb 23:07 BP 124 / 86; Pulse 79; Resp 18; Temp 97.6; Pulse Ox 98% on R/A; Pain 0/10; tmm1 07/31 06:04 BP 119 / 67; Pulse 69; Resp 18; Temp 96.0(T); Pulse Ox 98% on R/A; Pain 0/10; slm 08:37 BP 125 / 74; Pulse 65; Resp 16; Temp 96.4(O); Pulse Ox 95% on R/A; Pain 0/10; bcj 07/30 05:58 Body Mass Index 20.62 (74.84 kg, 190.50 cm) mdr MDM: 07/30 06:38 Consult PFS/PSA/Shelver ordered. ml 06:38 Consult PFS/PSA/Shelver: Patient's case requires discussion with on-call ml Psychiatrist ordered. 06:38 PSA/PFS to call Nursing Manager Ui, to enter patient data on [place] Safe Act if patient ml involuntarily admitted or transferred for SI or HI ordered. 06:38 Grape Pruner/Pulse Ox/q 15 min VS ordered. ml 06:38 Confirm accurate psychiatric medication list and times of last dosage ordered. ml 06:38 Detain Pt Until Medically/PFS Cleared ordered. ml 06:38 IV Saline Lock ordered. ml 06:38 Rhythm Strip to chart ordered. ml 06:39 ECG WITH READING ER PHYS+CARDIAG ordered. EDMS 06:40 Acetaminophen Level Ordered. EDMS 06:40 Basic Metabolic Profile Ordered. EDMS 06:40 Complete Blood Count Ordered. EDMS 06:40 Drug Eval Toxicology ED Only Ordered. EDMS 06:40 Ethyl Alcohol (ethanol) Ordered. EDMS 06:40 Liver Profile Ordered. EDMS 06:40 Salicylate Level Ordered. EDMS 06:40 Thyroid Stimulating Hormone Ordered. EDMS 06:55 CT Head Without Contrast Ordered. EDMS 07:26 Acetaminophen Level Reviewed. ml 07:26 Basic Metabolic Profile Reviewed. ml 07:26 Complete Blood Count Reviewed. ml 07:26 Drug Eval Toxicology ED Only Reviewed. ml 07:26 Liver Profile Reviewed. ml 07:26 Salicylate Level Reviewed. ml 07:26 Ethyl Alcohol (ethanol) Reviewed. ml 07:26 Thyroid Stimulating Hormone Reviewed. ml 07:26 Potassium Chloride Extended Release Tablet 40 mEq PO once ordered. ml 07:27 REGULAR+DIET ordered. EDMS 07:57 Misc. Nursing Order ordered. ml 08:36 Financial registration complete. mpb 08:45 [place] [place] Agreement was scanned into [employer] and attached to record. mpb 11:01 REGULAR DIET PLASTIC SWARTZ+DIET ordered. EDMS 11:46 Consult PFS/PSA/Shelver complete. ml4 11:46 Consult PFS/PSA/Shelver: Patient's case requires discussion with on-call ml4 Psychiatrist complete. 11:46 PSA/PFS to call Nursing Manager Ui, to enter patient data on [place] Safe [place] if patient ml4 involuntarily admitted or transferred for SI or HI complete. 12:31 BED REQUEST+ADM ordered. EDMS 13:39 SYNTHETIC THC URINE Ordered. EDMS 17:00 Seclusion, Adult: Patient may be secluded due to violent/destructive behavior for up to ml 1 hr ordered. 17:00 ED course: per yessi, this pt walked into a female pediatric room and found speaking ml to her. The pediatric patient screamed for assistance. PSA Yessi Gonzalez immediately presented to her room. the pt and the other pediatric pt. I ordered seclusioon for an hour. mlg. 17:20 REGULAR DIET ROOM SERVICE ED+DIET ordered. EDMS 18:43 Discontinue Restraint / Seclusion ordered. ml 18:43 ED course: pt cooperative and seclusion order d/c. pt signed out to Dr skaggs at 7 pm ml mlg. 18:59 ED course: pt signed out to dr skaggs. pending psych disposition.mlg. ml 07/31 05:15 REGULAR DIET PLASTIC SWARTZ+DIET ordered. EDMS 08/01 14:27 T-Sheet-- Draft Copy was scanned into [employer] and attached to record. gb 14:27 ECG/EKG was scanned into [employer] and attached to record. gb 14:28 Radiology Report was scanned into [employer] and attached to record. gb Administered Medications: 07/30 07:39 Drug: Potassium Chloride 40 mEq [potassium chloride ER 10 mEq tablet,extended release dls (4 tabs)] Route: PO; Signatures: Dispatcher [employer] EDNJ Anny Vázquez MD MD ml Jobson, Karen, RN RN kpj Scott, Debra, RN RN dls Barnhardt, Gloria, Reg Reg Yessi Henderson PSA PSA ml4 Sven Skaggs, DO DO mm11 Heather Rhodes,RN RN nn1 Riky Patton, Reg Reg mpb The chart was reviewed and I authenticate all verbal orders and agree with the evaluation and treatment provided.Attachments: 08:45 [facility] Payment Agreement mpb 08/01 14:27 T-Sheet-- Draft Copy gb 14:27 ECG/EKG gb Chart Complete MTDD
== END 2016-07-31 08:46 ==
LOC: M ED 05:50
DX: F29 Unspecified psychosis not due to a substance or known physiological condition (principal); J45.909 Unspecified asthma, uncomplicated; F19.10 Other psychoactive substance abuse, uncomplicated; Z72.0 Tobacco use
CPT/HCPCS: 70450; 80048; 80076; 80307; 84443; 85027; 93005; 93041; 99285; G0480

== ENCOUNTER 2017-02-25 10:55 | Emergency (ER) | payer OTHER, SELFPAY ==
[~2017-02-25] VITALS: Ht 190.5 cm; Wt 77.3 kg
[2017-02-25 10:55] VITALS: BP 105/69
== END 2017-02-25 11:49 | disposition home or self-care (01) ==
LOC: M ED 10:55
DX: J02.9 Acute pharyngitis, unspecified (principal); Z72.0 Tobacco use

== ENCOUNTER 2017-06-19 06:09 | Emergency (ER) | payer OTHER ==
[2017-06-19] MEDS: IBUPROFEN 600 MG TAB PO (07:03)
== END 2017-06-19 07:23 | disposition home or self-care (01) ==
LOC: M ED 06:09
DX: B02.9 Zoster without complications (principal); E11.9 Type 2 diabetes mellitus without complications; F17.200 Nicotine dependence, unspecified, uncomplicated
CPT/HCPCS: 99283

== ENCOUNTER 2017-07-31 15:19 | Emergency (ER) | payer OTHER | END 2017-07-31 16:26 | disposition home or self-care (01) | LOC: M ED 15:19 | DX: B02.29 Other postherpetic nervous system involvement (principal); E11.9 Type 2 diabetes mellitus without complications; Z79.899 Other long term (current) drug therapy; F17.210 Nicotine dependence, cigarettes, uncomplicated | CPT/HCPCS: 99282 ==

== ENCOUNTER → 2018-04-02 | Outpatient (CLI) | payer OTHER | LOC: M OUTALCOH 09:20 | DX: Z13.9 Encounter for screening, unspecified (principal); F12.20 Cannabis dependence, uncomplicated ==

== ENCOUNTER 2018-04-10 14:00 | Outpatient (RCR) | payer OTHER | END 2018-04-17 | LOC: M OUTALCOH 14:00 | DX: F12.20 Cannabis dependence, uncomplicated (principal); F10.20 Alcohol dependence, uncomplicated ==

== ENCOUNTER 2019-01-01 13:12 | Inpatient (IN) | payer OTHER, SELFPAY ==
[~2019-01-01] VITALS: Ht 190.5 cm; Wt 77.9 kg
[~2019-01-01 13:12] MED LIST: GABA-843 PO; IBUP80TA PO; VALA1TAB64 PO
[2019-01-01] MEDS ORDERED: CHARCOAL ACTIVATED LIQUID 25 GM/120 ML BTL PO ONE (13:15)
[2019-01-01] MEDS ORDERED: NS 1,000 ML IV ONE ×2 (13:15→16:15)
[2019-01-01 13:54] LABS: BASO % 0.4 % (0.0-1.0); EOS # 0.2 10^3/uL (0.0-0.50); EOS % 2.4 % (0.0-3.0); HEMATOCRIT 38.8 % (42.0-52.0); HEMOGLOBIN 12.9 g/dl (13.5-17.5); LYMPH # 3.5 10^3/uL (1.5-4.5); MEAN CORPUSCULAR HEMOGLOBIN 33.5 pg (27.0-33.0); MEAN CORPUSCULAR HGB CONC 33.2 g/dl (32.0-36.5); MEAN CORPUSCULAR VOLUME 100.8 fl (80.0-96.0); MONO # 0.4 10^3/uL (0.0-0.8); NEUTROPHILS # 3.7 10^3/uL (1.8-7.7); NEUTROPHILS % 46.9 % (36.0-66.0); PLATELET COUNT, AUTOMATED 177 10^3/uL (150-450); RED BLOOD COUNT 3.85 10^6/uL (4.30-6.10); WHITE BLOOD COUNT 7.8 10^3/uL (4.0-10.0)
[2019-01-01 14:20] LABS: OSMOLALITY SERUM 296 MOSM/KG (275-295)
[2019-01-01 14:24] LABS: ALBUMIN 3.7 GM/DL (3.2-5.2); ALT/SGPT 18 U/L (12-78); BILIRUBIN,DIRECT < 0.1 MG/DL (0.0-0.2); BILIRUBIN,TOTAL 0.2 MG/DL (0.2-1.0); BLOOD UREA NITROGEN 9 MG/DL (7-18); CALCIUM LEVEL 9.3 MG/DL (8.5-10.1); CARBON DIOXIDE LEVEL 29 MEQ/L (21-32); CHLORIDE LEVEL 108 MEQ/L (98-107); CPK CREATINE PHOSPHOKINASE 166 U/L (39-308); CREATININE FOR GFR 0.88 MG/DL (0.70-1.30); ETHYL ALCOHOL (ETHANOL) 0.003 % (0.000-0.010); GLOMERULAR FILTRATION RATE > 60.0 (>60); GLUCOSE, FASTING 81 MG/DL (70-100); POTASSIUM SERUM 3.9 MEQ/L (3.5-5.1); SALICYLATE LEVEL 3.6 MG/DL (5.0-30.0); SODIUM LEVEL 143 MEQ/L (136-145); THYROID STIMULATING HORMONE 0.626 uIU/ML (0.358-3.740); TOTAL PROTEIN 8.5 GM/DL (6.4-8.2)
[2019-01-01 14:25] LABS: ACETAMINOPHEN LEVEL < 2.0 UG/ML (10.0-30.0)
[2019-01-01] MEDS ORDERED: ONDANSETRON 4MG/2ML VIAL (J2405) As Ordered ONE (16:11)
[2019-01-01] MEDS ORDERED: ONDANSETRON 4MG/2ML VIAL (J2405) IV ONE (16:15)
[2019-01-01 16:52] LABS: AMPHETAMINES LEVEL URINE NEGATIVE (NEGATIVE); BARBITURATES URINE NEGATIVE (NEGATIVE); BENZODIAZEPINES URINE NEGATIVE (NEGATIVE); CANNABINOIDS URINE POSITIVE (NEGATIVE); COCAINE METABOLITE URINE POSITIVE (NEGATIVE); METHADONE URINE NEGATIVE (NEGATIVE); OPIATES URINE NEGATIVE (NEGATIVE); PHENCYCLIDINE URINE NEGATIVE (NEGATIVE)
[2019-01-01] MEDS ORDERED: METOCLOPRAMIDE INJ 10MG/2ML VIAL (J2765) IV ONE (18:15)
--- NOTE | 2019-01-01 19:19 | ECGEPIP ---
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
[2019-01-01] MEDS ORDERED: MOM 30ML SUSPENSION UDC PO PRN ×2 (22:30→23:45)
[2019-01-01] MEDS ORDERED: traZODone 50 MG TAB PO PRN ×2 (22:30→23:45)
[2019-01-01] MEDS ORDERED: ACETAMINOPHEN TAB 650MG DOSE (2X325MG) PO PRN ×2 (22:30→23:45)
[2019-01-01] MEDS ORDERED: MAALOX 30 ML SUSP *UDC PO PRN ×2 (22:30→23:45)
[2019-01-01] MEDS ORDERED: ONDANSETRON 4 MG ORAL DISINTEGRATING TAB (Q0162 PER 1MG) PO ONE (22:45)
[2019-01-02 00:29] VITALS: BP 128/76
[2019-01-02 06:47] VITALS: BP 118/59
[2019-01-02] MEDS: NICOTINE 21MG/24HR 1 EA TRANSDERMAL TD SCH (09:00)
[2019-01-02] MEDS ORDERED: NICOTINE 21MG/24HR 1 EA TRANSDERMAL TD SCH (09:00)
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
--- NOTE | 2019-01-02 17:52 | HPEPDOC ---
[facility] Medical History & Physical Date of Admission Jan 01, 2019 Date of Service: Jan 02, 2019 Attending Physician: SILVIO ARRIAGA DO History and Physical CHIEF COMPLAINT: medical H&P HISTORY OF PRESENT ILLNESS: 33 yo black male present in psychiatric unit for medical evaluation. Patient states no concerns except needs "medicine for my shingles pain". he is specifically requesting gabapentin. patient states he has not seen a doctor for 2-3 years and has been homeless and mostly using THC to control pain. PAST MEDICAL HISTORY: Shingles to right anterior shoulder/scapula (last outbreak years ago); post herpetic neuralgia PAST SURGICAL HISTORY: none SOCIAL HISTORY: states homeless, smokes 2-3 ppd but "can quit at anytime". declines nicotene patch. states no EtOH use, no IVDA FAMILY HISTORY: mother from gunshot wounds, father alive with DM ALLERGIES: Please see below. REVIEW OF SYSTEMS:10 systems reviewed and negative except as per HPI HOME MEDICATIONS: Please see below. PHYSICAL EXAMINATION: VITAL SIGNS: Vital Signs Date Time Temp Pulse Resp B/P (MAP) Pulse Ox O2 Delivery O2 Flow Rate FiO2 01/01/19 13:19 53 115/75 (88) 100 01/01/19 13:45 96.9 16 General: pleasant NAD AAOx3 HRRR LCTA no W/R/R Ext: no edema Skin: right anterior shoulder and scapula with healed non confluent scars consistent with history. LABORATORY DATA: See below. ASSESSMENT: Post herpetic neuralgia Anemia unknown etiology,chronicity - asymptomatic PLAN: Not ordering gabapentin as may interfere with psych med management. Trial of capsacian cream prn if okay with psychiatry declines nicotene patch he is asymptomatic for anemia and this can be worked up as outpatient. Please call if needed, otherwise will sign off at this time and follow peripherally Vital Signs Vital Signs Date Time Temp Pulse Resp B/P (MAP) Pulse Ox O2 Delivery O2 Flow Rate FiO2 01/02/19 06:47 98.1 68 12 118/59 (78) 01/01/19 23:43 100 Home Medications No Active Prescriptions or Reported Meds Allergies Coded Allergies: No Known Allergies (Unverified , 02/25/17) A-FIB/CHADSVASC A-FIB History Current/History of A-Fib/PAF?: No HARLAN TOBAR DO Jan 02, 2019 16:56
[2019-01-02 18:00] VITALS: BP 125/58
[2019-01-02] MEDS ORDERED: CAPSAICIN 0.025% CR 60 GM TOP PRN (18:00)
[2019-01-03 06:42] VITALS: BP 122/57
[2019-01-03] MEDS: NICOTINE 21MG/24HR 1 EA TRANSDERMAL TD SCH (09:00)
--- NOTE | 2019-01-03 09:32 | MHIPNPDOC ---
[facility] Progress Note Progress Note DATE OF SERVICE: 01/03/19 HISTORY:Patient is a 33 -year-old , male, with a history of substance abuse who was brought to ED by PD after pt had been kicked out by respite program for substance abuse ([facility]) the same morning, found some soma under a TV there and called his friend to tell him that he had taken 10 soma and was going to take more b/c life wasn't worth living so his friend told the pt to come over to friend's home where they smoked pot together, pt left and friend called EMS who found pt a few houses down from friends walking per ED. Per ED pt stated to EMS when they arrived "I'm high... I want to kill myself... there's no reason for me." Pt endorsed need for help in ED. VITAL SIGNS: See below. NEW TEST RESULTS: See below. CURRENT MEDICATIONS: See below. MENTAL STATUS EXAMINATION: General Appearance: well groomed, appears stated age, hospital scrubs/clothing Build: average Demeanor: average, other (happy) Eye Contact: average Activity: average Behavior: cooperative, other (manipulative "I will harm myself again if you try to d/c me without a place to go.") Speech: clear, spontaneous, reg/rate,rhythm,volume Mood: euthymic, other (happy, bright) Mood "great" Affect: full, appropriate, congruent Thought Process: logical/linear, intact, other (manipulative to get what he wants) Thought Content (Delusions): none reported, denies SI, HI, AVH Thought Content (Other): none reported Thought Content (Aggressive): none reported Perception (Hallucinations): none reported Perception (Other): none reported Cognition (Impairment of): none reported Cognition(Intelligence Est.): average Oriented: Awake, Alert, Oriented times three Insight: good Judgment: Good Psychosis: Denies DIAGNOSES: Barbiturate/cannabis/cocaine use d/o Malingering d/o R/O Antisocial personality d/o ASSESSMENT:Pt seen and states he's good just had difficulty sleeping last night. Will increase prn trazodone for sleep. Pt is happy, social, going to groups on unit. He appears to be malingering and told d/c operations planner he's glad to be here b/c "I don't have to pay rent today and you do." He is euthymic, bright, full range, and manipulative. D/c operations planner called DSS and for pt to receive housing thru DSS he will have to complete 1wk of job core with them. Will have pt stay with a friend for 1wk so he get [facility] housing by attending their job core. He denies depression, anxiety, insomnia, SI/HI, hallucinations, delusions. Feels safe here. MANAGEMENT PLAN: continue plan. D/c Sunday TIME SPENT: 30 minutes. Vital Signs Vital Signs Date Time Temp Pulse Resp B/P (MAP) Pulse Ox O2 Delivery O2 Flow Rate FiO2 01/03/19 06:42 98.0 61 12 122/57 (78) 01/01/19 23:43 100 Current Medications Current Medications Acetaminophen (Tylenol Tab) 650 mg Q6HP PRN PO HEADACHE or DISCOMFORT; Start 01/01/19 at 22:30; Status Cancel Acetaminophen (Tylenol Tab) 650 mg Q6HP PRN PO HEADACHE or DISCOMFORT; Start 01/01/19 at 23:45 Al Hydrox/Mg Hydrox/Simethicone (Mylanta) 30 ml Q4HP PRN PO HEARTBURN/INDIGESTION; Start 01/01/19 at 22:30; Status Cancel Al Hydrox/Mg Hydrox/Simethicone (Mylanta) 30 ml Q4HP PRN PO HEARTBURN/INDIGESTION; Start 01/01/19 at 23:45 Capsaicin (Zostrix 0.025%) if okay by psychiatry to use. ... BIDP PRN TOP post herpetic neuralgia; Start 01/02/19 at 18:00 Home Med (Med Rec Complete!) ASDIRECTED XX ; Start 01/01/19 at 23:15; Stop 01/01/19 at 23:17; Status DC Magnesium Hydroxide (Milk Of Magnesia) 30 ml DAILYPRN PRN PO CONSTIPATION; Start 01/01/19 at 22:30; Status Cancel Magnesium Hydroxide (Milk Of Magnesia) 30 ml DAILYPRN PRN PO CONSTIPATION; Start 01/01/19 at 23:45 Nicotine (Nicoderm Cq 21mg) 1 patch DAILY TD ; Start 01/02/19 at 09:00 Nicotine (Nicoderm Cq 21mg) 1 patch DAILY TD ; Start 01/02/19 at 09:00; Status Cancel Trazodone HCl (Desyrel) 50 mg QHSP PRN PO INSOMNIA; Start 01/01/19 at 22:30; Status Cancel Trazodone HCl (Desyrel) 50 mg QHSP PRN PO INSOMNIA Last administered on 01/02/19at 23:16; Start 01/01/19 at 23:45 Allergies Coded Allergies: No Known Allergies (Unverified , 02/25/17) SILVIO ARRIAGA DO Jan 03, 2019 9:32 am
[2019-01-03 18:00] VITALS: BP 108/56
[2019-01-03] MEDS: traZODone 100 MG TAB PO PRN (23:26)
[2019-01-04 06:35] VITALS: BP 98/54
[2019-01-04] MEDS: NICOTINE 21MG/24HR 1 EA TRANSDERMAL TD SCH (09:00)
[2019-01-04 18:12] VITALS: BP 117/66
[2019-01-04] MEDS: traZODone 100 MG TAB PO PRN (23:53)
[2019-01-05 06:53] VITALS: BP 120/61
[2019-01-05] MEDS: NICOTINE 21MG/24HR 1 EA TRANSDERMAL TD SCH (08:34)
[2019-01-05 18:17] VITALS: BP 122/66
[2019-01-05] MEDS: traZODone 100 MG TAB PO PRN (21:54)
[2019-01-06 07:04] VITALS: BP 96/50
--- NOTE | 2019-01-06 08:47 | MHDSPDOC ---
[facility] Discharge Summary Discharge Summary DATE OF ADMISSION: Jan 01, 2019 at 10:26 pm DATE OF DISCHARGE: January 06, 2019 DISCHARGE DIAGNOSES: Barbiturate/cannabis/cocaine use d/o Malingering d/o R/O Antisocial personality d/o REASON FOR ADMISSION: Patient is a 33 -year-old , male, with a history of substance abuse who was brought to ED by PD after pt had been kicked out by respite program for substance abuse ([facility]) the same morning, found some soma under a TV there and called his friend to tell him that he had taken 10 soma and was going to take more b/c life wasn't worth living so his friend told the pt to come over to friend's home where they smoked pot together, pt left and friend called EMS who found pt a few houses down from friends walking per ED. Per ED pt stated to EMS when they arrived "I'm high... I want to kill m yself... there's no reason for me." Pt endorsed need for help in ED. CONSULTANTS INVOLVED: none TREATMENT AND PROGRESS ON THE UNIT : Pt was admitted to [facility], seen for psychiatric assessment and monitored for safety. He was not started on psychotr opic medication during his stay as he was not depressed or psychotic but happy to be here on the unit most likely malingering. He was provided trazodone 100mg qhs prn insomnia. He attended groups daily during his stay. His symptoms improved with treatment. On day of discharge he denied depression, anxiety, insomnia, SI/HI, hallucinations, delusions. He was discharged home with follow- up at [facility] and [facility]. . He felt safe for discharge. DISCHARGE ASSESSMENT: Pt seen and states that his mood is "good" and he appears happy. States he slept well last night. He is attending groups and finding the m helpful. He denies depression, anxiety, insomnia, SI/HI, hallucinations, delusions. Pt feels safe to be discharge home to his grandfather's house. MENTAL STATUS EXAMINATION ON DISCHARGE: General Appearance: well groomed, appears stated age, hospital scrubs/clothing Build: average Demeanor: average, other (happy) Eye Contact: average Activity: average Behavior: cooperative, other (manipulative "I will harm myself again if you try to d/c me without a place to go.") Speech: clear, spontaneous, reg/rate,rhythm,volume Mood: euthymic, other (happy, bright) Mood "great" Affect: full, appropriate, congruent Thought Process: logical/linear, intact, other (manipulative to get what he wants) Thought Content (Delusions): none reported, denies SI, HI, AVH Thought Content (Other): none reported Thought Content (Aggressive): none reported Perception (Hallucinations): none reported Perception (Other): none reported Cognition (Impairment of): none reported Cognition(Intelligence Est.): average Oriented: Awake, Alert, Oriented times three Insight: good Judgment: Good Psychosis: Denies MEDICATIONS ON DISCHARGE: none PLAN/FOLLOWUP ARRANGEMENTS: D/c to home with follow-up at [facility] and [facility]. The amount of time spent in the coordination of care for this patient was approximately 30 minutes. Vital Signs/I&Os Vital Signs Date Time Temp Pulse Resp B/P (MAP) Pulse Ox O2 Delivery O2 Flow Rate FiO2 01/06/19 07:04 98.1 53 14 96/50 (65) 01/01/19 23:43 100 Medications No Active Prescriptions or Reported Meds Allergies Coded Allergies: No Known Allergies (Unverified , 02/25/17) SILVIO ARRIAGA DO Jan 06, 2019 8:47 am
[2019-01-06] MEDS: NICOTINE 21MG/24HR 1 EA TRANSDERMAL TD SCH (09:00)
--- NOTE | 2019-01-06 16:03 | MHIPN ---
DATE: 01/04/2019 CHIEF COMPLAINT: Says feels okay. SUBJECTIVE: Is seen for followup, in the presence of staff. He has been feeling okay and that he felt anxious early on when found a patient by his bed. The patient had wandered into his room. He says that he has been eating. Sleep has been good. Mood is improved. He says that he is glad that he did not after taking the overdose. Says has never overdosed in the past. MENTAL STATUS EXAMINATION: Neat, cooperative. Coherent with a broad affect. No evidence of any thoughts of harming himself or anyone else at present. Denies any suicidal thoughts or intents. Currently, no evidence of psychosis. Cognition is grossly intact. Judgment is questionable, possibly improved. Insight is fair. ASSESSMENT: 1. Adjustment disorder with depressed mood. 2. Cannabis use disorder. PLAN: Continue current care, observations, and encourage participation in activities in the unit. Such progress continue, the patient will be discharged in the near future. VITAL SIGNS: Blood pressure 98/54, pulse 61, temperature 96.5.
--- NOTE | 2019-01-06 22:59 | MHIPN ---
DATE: 01/05/2019 VITAL SIGNS: Blood pressure 120/61, pulse 83, temperature 97.6. CHIEF COMPLAINT: Says feels better. SUBJECTIVE: Seen for followup. Indicates feels better and is looking forward to leaving the hospital. Says has spoken with his niece locally and that plans to go live with her, is looking forward to that. MENTAL STATUS EXAMINATION: Neat and cooperative. No agitation. Coherent. Affect is reactive, fairly broad. No evidence of any thoughts of harming himself or anyone else, nor of any psychosis. Cognition grossly intact. Judgment good. Insight is possibly improved. ASSESSMENT: He is doing better, future oriented, wishes to leave soon. PLAN: Continue current care, observations, he will be seeing the treatment tomorrow and should such progress continue he will be able to leave the hospital.
== END 2019-01-06 12:33 | disposition home or self-care (01) | DRG 774 ==
LOC: M ED 13:12 → EDBD 13:12 → M ED INP 22:26 → M PSY 01-02 00:24
PROVIDERS: ADMIT Psychiatry & Neurology Psychiatry; ATTEND Psychiatry & Neurology Psychiatry
DX: F14.188 Cocaine abuse with other cocaine-induced disorder (principal); F60.2 Antisocial personality disorder; F12.10 Cannabis abuse, uncomplicated; F19.10 Other psychoactive substance abuse, uncomplicated; Z76.5 Malingerer [conscious simulation]; Z59.0 Homelessness

== ENCOUNTER 2019-01-20 11:16 | Emergency (ER) | payer SELFPAY ==
[~2019-01-20] VITALS: Ht 190.5 cm; Wt 77.3 kg
[~2019-01-20 11:16] MED LIST changes: +VALA1TAB2 PO; -VALA1TAB64 PO
[2019-01-20 11:17] VITALS: BP 131/81
[2019-01-20 13:34] LABS: CHLAMYDIA DNA AMPLIFICATION NEGATIVE (NEGATIVE); GC DNA AMPLIFICATION NEGATIVE (NEGATIVE)
[2019-01-20 18:27] LABS: HIV 1&2 SCREEN CENTAUR REACTIVE (NEGATIVE)
--- NOTE | 2019-01-20 18:45 | ED PDOC ---
Post-Departure Follow-Up Notified of HIV + serum testing on patient. Policy and Procedure reviewed with Dr. Sue Zapata. Placed call to patient on number provided on demographic data on chart. Voicemail - left message that patient needed to present to the ER ANALI so results of testing should be reviewed with patient. Report given to Lenny Tabares PA-C if patient presents to ER. Thi Adams [facility] Jan 20, 2019 18:45
== END 2019-01-20 14:43 | disposition home or self-care (01) ==
LOC: M ED 11:16
DX: Z11.3 Encounter for screening for infections with a predominantly sexual mode of transmission (principal); F14.10 Cocaine abuse, uncomplicated; F15.10 Other stimulant abuse, uncomplicated; F12.90 Cannabis use, unspecified, uncomplicated; F17.210 Nicotine dependence, cigarettes, uncomplicated

== ENCOUNTER 2019-01-22 11:45 | Emergency (ER) | payer SELFPAY ==
[~2019-01-22] VITALS: Ht 190.5 cm; Wt 75.8 kg
[~2019-01-22 11:45] MED LIST changes: -VALA1TAB2 PO; +VALA1TAB64 PO
[2019-01-22 13:12] VITALS: BP 112/70
== END 2019-01-22 13:29 | disposition home or self-care (01) ==
LOC: M ED 11:45
DX: Z21 Asymptomatic human immunodeficiency virus [HIV] infection status (principal)

== ENCOUNTER → 2019-02-10 | Outpatient (REF) | payer OTHER ==
[~2019-02-10] MED LIST changes: +VALA1TAB2 PO; -VALA1TAB64 PO
[2019-02-10 16:12] LABS: ALBUMIN 3.6 GM/DL (3.2-5.2); ALT/SGPT 21 U/L (12-78); BILIRUBIN,TOTAL 0.2 MG/DL (0.2-1.0); BLOOD UREA NITROGEN 12 MG/DL (7-18); CALCIUM LEVEL 8.6 MG/DL (8.5-10.1); CARBON DIOXIDE LEVEL 30 MEQ/L (21-32); CHLORIDE LEVEL 104 MEQ/L (98-107); CREATININE FOR GFR 0.87 MG/DL (0.70-1.30); FREE T4 0.81 NG/DL (0.76-1.46); GLOMERULAR FILTRATION RATE > 60.0 (>60); GLUCOSE, FASTING 85 MG/DL (70-100); POTASSIUM SERUM 4.3 MEQ/L (3.5-5.1); SODIUM LEVEL 140 MEQ/L (136-145); THYROID STIMULATING HORMONE 0.327 uIU/ML (0.358-3.740)
[2019-02-10 16:15] LABS: HEPATITIS B SURFACE ANTIBODY POSITIVE (POSITIVE)
[2019-02-10 16:26] LABS: HEPATITIS B SURFACE ANTIGEN NEGATIVE (NEGATIVE)
[2019-02-10 18:51] LABS: HIV 1&2 SCREEN CENTAUR REACTIVE (NEGATIVE)
[2019-02-15 00:06] LABS: % CD8 Pos Lymph 46.9 % (12.0-35.5); %CD4 Pos Lymphs 43.6 % (30.8-58.5); ABS Eosinophils 0.2 x10E3/uL (0.0-0.4); ABS Lymphs 4.2 x10E3/uL (0.7-3.1); ABS Monocytes 0.3 x10E3/uL (0.1-0.9); ABS Neutophils 2.5 x10E3/uL (1.4-7.0); Abs CD4 Helper 1831 /uL (359-1519); Abs CD8 Suppres 1970 /uL (109-897); CD4/CD8 Ratio 0.93 (0.92-3.72); Eosinophils 3 % (Not Estab.); HCT 38.9 % (37.5-51.0); HEPATITIS A IgG TOTAL Negative (Negative); HEPATITIS B CORE ANTIBODY IGG Negative (Negative); HGB 12.6 g/dL (13.0-17.7); HIV-1 RNA PCR QUANT 2 LC550285 410 copies/mL (.); HIV-1 RNA PCR QUANT 3 LC550285 2.613 (.); Immature Grans 0 % (Not Estab.); Lymphocytes 58 % (Not Estab.); MCH 33.2 pg (26.6-33.0); MCHC 32.4 g/dL (31.5-35.7); MCV 102 fL (79-97); Monocytes 4 % (Not Estab.); Neutrophils 35 % (Not Estab.); Platelets 182 x10E3/uL (150-450); RDW 13.4 % (12.3-15.4); WBC 7.3 x10E3/uL (3.4-10.8)
== END ==
LOC: M SFHCPLAZ 13:20
PROVIDERS: ATTEND Internal Medicine Infectious Disease
DX: Z21 Asymptomatic human immunodeficiency virus [HIV] infection status (principal); R63.4 Abnormal weight loss

== ENCOUNTER 2019-04-13 01:01 | Emergency (ER) | payer MEDICAID, SELFPAY ==
[~2019-04-13] VITALS: Ht 180.3 cm; Wt 70.2 kg
[2019-04-13] MEDS ORDERED: diphenhydrAMINE INJ 50MG/ML VIAL (J1200) IM ONE (01:15)
[2019-04-13] MEDS ORDERED: HALOPERIDOL 5 MG/ML VIAL (J1630) IM ONE (01:15)
[2019-04-13 01:31] LABS: HEMATOCRIT 34.7 % (42.0-52.0); MEAN CORPUSCULAR HEMOGLOBIN 34.4 pg (27.0-33.0); MEAN CORPUSCULAR HGB CONC 34.6 g/dl (32.0-36.5); MEAN CORPUSCULAR VOLUME 99.4 fl (80.0-96.0); PLATELET COUNT, AUTOMATED 172 10^3/uL (150-450); RED BLOOD COUNT 3.49 10^6/uL (4.30-6.10); WHITE BLOOD COUNT 8.2 10^3/uL (4.0-10.0)
[2019-04-13] MEDS ORDERED: BIKT1TAB PO (01:50)
[2019-04-13 02:10] LABS: ACETAMINOPHEN LEVEL < 2.0 UG/ML (10.0-30.0); ALBUMIN 3.6 GM/DL (3.2-5.2); ALT/SGPT 16 U/L (12-78); BILIRUBIN,DIRECT 0.2 MG/DL (0.0-0.2); BILIRUBIN,TOTAL 0.9 MG/DL (0.2-1.0); BLOOD UREA NITROGEN 17 MG/DL (7-18); CALCIUM LEVEL 8.5 MG/DL (8.5-10.1); CARBON DIOXIDE LEVEL 24 MEQ/L (21-32); CHLORIDE LEVEL 106 MEQ/L (98-107); CPK CREATINE PHOSPHOKINASE 339 U/L (39-308); CREATININE FOR GFR 0.97 MG/DL (0.70-1.30); ETHYL ALCOHOL (ETHANOL) < 0.003 % (0.000-0.010); GLOMERULAR FILTRATION RATE > 60.0 (>60); GLUCOSE, FASTING 104 MG/DL (70-100); POTASSIUM SERUM 3.3 MEQ/L (3.5-5.1); SALICYLATE LEVEL 3.2 MG/DL (5.0-30.0); SODIUM LEVEL 140 MEQ/L (136-145); THYROID STIMULATING HORMONE 0.465 uIU/ML (0.358-3.740); TOTAL PROTEIN 7.8 GM/DL (6.4-8.2)
[2019-04-13 02:15] LABS: ATYPICAL LYMPH 1 % (0-5); EOSINOPHILS 2 % (0-3); LYMPHOCYTES 55 % (16-44); MONOCYTES 4 % (0-5); NEUTROPHILS 38 % (28-66); PLATELET ESTIMATE NORMAL (NORMAL)
[2019-04-13 03:19] LABS: AMPHETAMINES LEVEL URINE NEGATIVE (NEGATIVE); BARBITURATES URINE NEGATIVE (NEGATIVE); BENZODIAZEPINES URINE NEGATIVE (NEGATIVE); CANNABINOIDS URINE POSITIVE (NEGATIVE); COCAINE METABOLITE URINE NEGATIVE (NEGATIVE); METHADONE URINE NEGATIVE (NEGATIVE); OPIATES URINE NEGATIVE (NEGATIVE); PHENCYCLIDINE URINE NEGATIVE (NEGATIVE)
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
[2019-04-13 05:30] VITALS: BP 132/81
--- NOTE | 2019-04-14 20:57 | ECGEPIP ---
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
== END 2019-04-13 06:07 | disposition home or self-care (01) ==
LOC: M ED 01:01 → MERGE 01:01 → EDBD 01:01 → M ED 06:07
DX: Z04.6 Encounter for general psychiatric examination, requested by authority (principal); F98.9 Unspecified behavioral and emotional disorders with onset usually occurring in childhood and adolescence; F16.129 Hallucinogen abuse with intoxication, unspecified
CPT/HCPCS: 80048; 80076; 80307; 82550; 84443; 85025; 93005; 93041; 94760; 96372; 99285; G0480; J1200; J1630

== ENCOUNTER 2019-04-16 03:21 | Emergency (ER) | payer MEDICAID, OTHER, SELFPAY ==
[~2019-04-16] VITALS: Ht 190.5 cm; Wt 73.7 kg
[~2019-04-16 03:21] MED LIST changes: +BIKT1TAB PO
[2019-04-16 03:22] VITALS: BP 136/75
[2019-04-16] MEDS ORDERED: GABAPENTIN 300 MG CAP PO ONE (05:15)
== END 2019-04-16 05:17 | disposition home or self-care (01) ==
LOC: M ED 03:21
DX: H11.33 Conjunctival hemorrhage, bilateral (principal); B02.23 Postherpetic polyneuropathy; Z21 Asymptomatic human immunodeficiency virus [HIV] infection status; F19.11 Other psychoactive substance abuse, in remission; Z86.19 Personal history of other infectious and parasitic diseases

== ENCOUNTER → 2019-05-01 | Outpatient (REF) | payer MEDICAID, OTHER ==
[2019-05-01 18:52] LABS: ALT/SGPT 38 U/L (12-78); BILIRUBIN,TOTAL 0.3 MG/DL (0.2-1.0); BLOOD UREA NITROGEN 14 MG/DL (7-18); CALCIUM LEVEL 9.2 MG/DL (8.5-10.1); CARBON DIOXIDE LEVEL 28 MEQ/L (21-32); CHLORIDE LEVEL 104 MEQ/L (98-107); CREATININE FOR GFR 0.89 MG/DL (0.70-1.30); GLOMERULAR FILTRATION RATE > 60.0 (>60); GLUCOSE, FASTING 85 MG/DL (70-100); SODIUM LEVEL 139 MEQ/L (136-145); TOTAL PROTEIN 8.6 GM/DL (6.4-8.2)
[2019-05-06 00:07] LABS: %CD4 Pos Lymphs 43.5 % (30.8-58.5); ABS Eosinophils 0.2 x10E3/uL (0.0-0.4); ABS Lymphs 4.3 x10E3/uL (0.7-3.1); ABS Monocytes 0.3 x10E3/uL (0.1-0.9); ABS Neutophils 2.8 x10E3/uL (1.4-7.0); Abs CD4 Helper 1871 /uL (359-1519); Abs CD8 Suppres 1935 /uL (109-897); CD4/CD8 Ratio 0.97 (0.92-3.72); Eosinophils 3 % (Not Estab.); HCT 39.7 % (37.5-51.0); HGB 13.3 g/dL (13.0-17.7); HIV-1 RNA PCR QUANT 2 LC550285 20 copies/mL (.); HIV-1 RNA PCR QUANT 3 LC550285 1.301 (.); Immature Grans 0 % (Not Estab.); Lymphocytes 56 % (Not Estab.); MCH 33.4 pg (26.6-33.0); MCHC 33.5 g/dL (31.5-35.7); MCV 100 fL (79-97); Monocytes 5 % (Not Estab.); Neutrophils 36 % (Not Estab.); Platelets 209 x10E3/uL (150-450); RBC 3.98 x10E6/uL (4.14-5.80); WBC 7.6 x10E3/uL (3.4-10.8)
== END ==
LOC: M SFHCPLAZ 14:56
PROVIDERS: ATTEND Internal Medicine Infectious Disease
DX: B20 Human immunodeficiency virus [HIV] disease (principal)

== ENCOUNTER → 2019-07-31 | Outpatient (REF) | payer OTHER ==
[~2019-07-31] MED LIST changes: -VALA1TAB2 PO; +VALA1TAB5 PO
[2019-07-31 18:49] LABS: ALBUMIN 4.3 GM/DL (3.2-5.2); ALT/SGPT 28 U/L (12-78); BILIRUBIN,TOTAL 0.3 MG/DL (0.2-1.0); BLOOD UREA NITROGEN 12 MG/DL (7-18); CALCIUM LEVEL 8.8 MG/DL (8.5-10.1); CARBON DIOXIDE LEVEL 30 MEQ/L (21-32); CHLORIDE LEVEL 106 MEQ/L (98-107); CREATININE FOR GFR 1.04 MG/DL (0.70-1.30); GLOMERULAR FILTRATION RATE > 60.0 (>60); GLUCOSE, FASTING 71 MG/DL (70-100); POTASSIUM SERUM 4.4 MEQ/L (3.5-5.1); SODIUM LEVEL 141 MEQ/L (136-145); TOTAL PROTEIN 8.4 GM/DL (6.4-8.2)
[2019-08-04 14:11] LABS: % CD8 Pos Lymph 44.2 % (12.0-35.5); %CD4 Pos Lymphs 45.6 % (30.8-58.5); ABS Eosinophils 0.4 x10E3/uL (0.0-0.4); ABS Lymphs 4.8 x10E3/uL (0.7-3.1); ABS Monocytes 0.4 x10E3/uL (0.1-0.9); ABS Neutophils 2.8 x10E3/uL (1.4-7.0); Abs CD4 Helper 2189 /uL (359-1519); Abs CD8 Suppres 2122 /uL (109-897); CD4/CD8 Ratio 1.03 (0.92-3.72); Eosinophils 5 % (Not Estab.); HCT 39.4 % (37.5-51.0); HGB 13.6 g/dL (13.0-17.7); HIV-1 RNA PCR QUANT 2 LC550285 <20 copies/mL (.); Immature Grans 0 % (Not Estab.); Lymphocytes 58 % (Not Estab.); MCH 34.6 pg (26.6-33.0); MCHC 34.5 g/dL (31.5-35.7); MCV 100 fL (79-97); Monocytes 4 % (Not Estab.); Neutrophils 33 % (Not Estab.); Platelets 193 x10E3/uL (150-450); RBC 3.93 x10E6/uL (4.14-5.80); RDW 14.2 % (11.6-15.4); WBC 8.4 x10E3/uL (3.4-10.8)
== END ==
LOC: M SFHCPLAZ 13:29
PROVIDERS: ATTEND Internal Medicine Infectious Disease
DX: B20 Human immunodeficiency virus [HIV] disease (principal)

== ENCOUNTER → 2019-11-17 | Outpatient (CLI) | payer OTHER ==
[2019-11-17 16:10] LABS: ALBUMIN 3.9 GM/DL (3.2-5.2); ALT/SGPT 24 U/L (12-78); BILIRUBIN,TOTAL 0.4 MG/DL (0.2-1.0); BLOOD UREA NITROGEN 11 MG/DL (7-18); CALCIUM LEVEL 8.8 MG/DL (8.5-10.1); CARBON DIOXIDE LEVEL 30 MEQ/L (21-32); CHLORIDE LEVEL 105 MEQ/L (98-107); CREATININE FOR GFR 0.92 MG/DL (0.70-1.30); GLOMERULAR FILTRATION RATE > 60.0 (>60); GLUCOSE, FASTING 65 MG/DL (70-100); POTASSIUM SERUM 3.8 MEQ/L (3.5-5.1); SODIUM LEVEL 139 MEQ/L (136-145); TOTAL PROTEIN 7.9 GM/DL (6.4-8.2)
--- NOTE | 2019-11-18 01:52 | REPPI ---
Clinical: Neck pain. Technique: AP, lateral, and open-mouth views of the cervical spine. Findings: Alignment and lordosis maintained. Vertebral bodies are intact. No acute fracture / compression injury or subluxation. No significant degenerative changes are appreciated. Surrounding soft tissues are unremarkable. Open mouth view demonstrates normal C1-C2 articulation and odontoid process. Impression: Age-appropriate cervical spine radiographs. Electronically Signed by Steven Han MD 11/18/2019 01:44 A
[2019-11-20 16:08] LABS: % CD8 Pos Lymph 43.8 % (12.0-35.5); %CD4 Pos Lymphs 45.4 % (30.8-58.5); ABS Eosinophils 0.2 x10E3/uL (0.0-0.4); ABS Lymphs 3.9 x10E3/uL (0.7-3.1); ABS Monocytes 0.5 x10E3/uL (0.1-0.9); Abs CD4 Helper 1771 /uL (359-1519); Abs CD8 Suppres 1708 /uL (109-897); CD4/CD8 Ratio 1.04 (0.92-3.72); Eosinophils 3 % (Not Estab.); HCT 40.4 % (37.5-51.0); HGB 13.7 g/dL (13.0-17.7); HIV-1 RNA PCR QUANT 2 LC550285 <20 copies/mL (.); Immature Grans 0 % (Not Estab.); Lymphocytes 51 % (Not Estab.); MCH 34.4 pg (26.6-33.0); MCHC 33.9 g/dL (31.5-35.7); MCV 102 fL (79-97); Monocytes 6 % (Not Estab.); Neutrophils 40 % (Not Estab.); Platelets 206 x10E3/uL (150-450); RBC 3.98 x10E6/uL (4.14-5.80); RDW 12.1 % (11.6-15.4); WBC 7.6 x10E3/uL (3.4-10.8)
== END ==
LOC: M PLAIMG 13:27
PROVIDERS: ATTEND Internal Medicine Infectious Disease
DX: B20 Human immunodeficiency virus [HIV] disease (principal); M54.2 Cervicalgia

== ENCOUNTER 2019-12-08 10:49 | Observation (INO) | payer OTHER ==
[2019-12-08] VITALS (10 sets, daily range): BP systolic 95–118; BP diastolic 53–77
[2019-12-08] MEDS ORDERED: NS 1,000 ML IV ONE (11:00)
[2019-12-08] MEDS ORDERED: NALOXONE INJ 0.4MG/1ML VIAL (J2310 PER 1MG) IV ONE (11:00)
[2019-12-08] MEDS ORDERED: SERO1TAB3 PO (11:36)
[2019-12-08] MEDS ORDERED: GABA600T4 PO (11:36)
[2019-12-08] MEDS ORDERED: IBUP-1022 PO (11:36)
[2019-12-08] MEDS ORDERED: WELL100T2 PO (11:36)
[2019-12-08] MEDS ORDERED: BIKT1TAB PO (11:36)
[2019-12-08 11:52] LABS: BASO % 0.3 % (0.0-1.0); EOS # 0.2 10^3/uL (0.0-0.5); EOS % 1.8 % (0.0-3.0); HEMATOCRIT 36.7 % (42.0-52.0); HEMOGLOBIN 12.6 g/dl (13.5-17.5); LYMPH # 4.5 10^3/uL (1.5-5.0); LYMPH % 51.8 % (24.0-44.0); MEAN CORPUSCULAR HEMOGLOBIN 34.7 pg (27.0-33.0); MEAN CORPUSCULAR HGB CONC 34.3 g/dl (32.0-36.5); MEAN CORPUSCULAR VOLUME 101.1 fl (80.0-96.0); MONO # 0.5 10^3/uL (0.0-0.8); MONO % 5.5 % (0.0-5.0); NEUTROPHILS # 3.5 10^3/uL (1.5-8.5); NEUTROPHILS % 40.4 % (36.0-66.0); PLATELET COUNT, AUTOMATED 179 10^3/uL (150-450); RED BLOOD COUNT 3.63 10^6/uL (4.30-6.10); WHITE BLOOD COUNT 8.7 10^3/uL (4.0-10.0)
[2019-12-08 12:29] LABS: ALBUMIN 3.9 GM/DL (3.2-5.2); ALT/SGPT 20 U/L (12-78); BILIRUBIN,DIRECT 0.2 MG/DL (0.0-0.2); BILIRUBIN,TOTAL 0.8 MG/DL (0.2-1.0); BLOOD UREA NITROGEN 27 MG/DL (7-18); CARBON DIOXIDE LEVEL 22 MEQ/L (21-32); CHLORIDE LEVEL 105 MEQ/L (98-107); CK-MB VALUE MASS 1.8 NG/ML (<3.6); CPK CREATINE PHOSPHOKINASE 345 U/L (39-308); CREATININE FOR GFR 1.04 MG/DL (0.70-1.30); GLOMERULAR FILTRATION RATE > 60.0 (>60); GLUCOSE, FASTING 115 MG/DL (70-100); MB/CK RELATIVE INDEX 0.52 (< OR =4); POTASSIUM SERUM 3.3 MEQ/L (3.5-5.1); SALICYLATE LEVEL 4.6 MG/DL (5.0-30.0); SODIUM LEVEL 135 MEQ/L (136-145); THYROID STIMULATING HORMONE 0.954 uIU/ML (0.358-3.740); TROPONIN I < 0.02 NG/ML (< 0.10)
[2019-12-08 12:39] LABS: ACETAMINOPHEN LEVEL < 2.0 UG/ML (10.0-30.0); ETHYL ALCOHOL (ETHANOL) < 0.003 % (0.000-0.010)
[2019-12-08] MEDS ORDERED: LORazepam 2 MG/ML VIAL IV PRN (12:45)
[2019-12-08 13:24] LABS: AMPHETAMINES LEVEL URINE POSITIVE (NEGATIVE); BARBITURATES URINE NEGATIVE (NEGATIVE); BENZODIAZEPINES URINE NEGATIVE (NEGATIVE); CANNABINOIDS URINE POSITIVE (NEGATIVE); COCAINE METABOLITE URINE NEGATIVE (NEGATIVE); METHADONE URINE NEGATIVE (NEGATIVE); OPIATES URINE NEGATIVE (NEGATIVE); PHENCYCLIDINE URINE NEGATIVE (NEGATIVE)
[2019-12-08] MEDS ORDERED: MED REC COMMENT (13:29)
[2019-12-08] MEDS: LR 1,000 ML IV SCH ×2 (13:44→22:45)
--- NOTE | 2019-12-08 14:19 | HPEPDOC ---
[facility] Medical History & Physical Date of Admission Dec 08, 2019 Date of Service: Dec 08, 2019 Primary Care Physician: Nikki Plummer Attending Physician: IVÁN VARGAS DO History and Physical CHIEF COMPLAINT: Seroquel overdose, and possibly Wellbutrin, suicide attempt HISTORY OF PRESENT ILLNESS: HPI was provided by signout from the ED. The patient is obtunded and unable to provide a history. Apparently this was a suicide attempt, 2 bottles were found on seen Seroquel and Wellbutrin, we seem fairly certain that he ingested the Seroquel, it is unclear as to whether or not he had Wellbutrin also, there simply was just a bottle present in the room. There is also report that he had been using methamphetamine as well. ALLERGIES: No known drug allergies CODE STATUS: Full code PAST MEDICAL HISTORY: Substance abuse including past history of cocaine, marijuana, and alcohol abuse, apparently also using methamphetamine recently HIV-positive, follows with Dr. Percy Ashraf Lactose intolerance Hayfever PAST SURGICAL HISTORY: None SOCIAL HISTORY: Polysubstance abuse as indicated above FAMILY HISTORY: Father has mental health issues. Mother due to gunshot wounds. He has multiple siblings who apparently are healthy per medical record from [facility]. REVIEW OF SYSTEMS: Unobtainable PHYSICAL EXAMINATION: General: Obtunded, but occasionally wakes up and attempts to get out of bed. He does not respond to questioning HEENT: Head normocephalic atraumatic, conjunctiva are pink, sclera are nonicteric, buccal mucosa is pink and moist with no lesions in the oropharynx. Respiratory: Clear to auscultation bilaterally with no wheezes, rales, or rhonchi. Cardiovascular: Borderline tachycardic rate with normal rhythm, no rubs, gallops, or murmur. Abdomen: Soft, nontender, nondistended, no hepatosplenomegaly appreciated. Bowel sounds present. Extremities: 2+ pulses in the radial and dorsalis pedis bilaterally. No evidence of clubbing or cyanosis. ASSESSMENT: Seroquel overdose Possible Wellbutrin overdose Methamphetamine use Suicide attempt PLAN: And will admit to the ICU for close monitoring. IV Ativan when necessary for seizures. Will titrate O2 as necessary, and monitor end-tidal CO2. He was given 1 L bolus of normal saline in the emergency department, will continue with lactated Ringer's at 100mL/hour since he is borderline low on his other electrolytes. Seizure precautions Sitter DVT prophylaxis with Lovenox Serial EKGs every 6 hours to monitor for QTC prolongation Vital Signs Vital Signs Date Time Temp Pulse Resp B/P (MAP) Pulse Ox O2 Delivery O2 Flow Rate FiO2 12/08/19 13:45 97 12 130/80 (97) 100 Room Air 12/08/19 12:49 1.0 12/08/19 11:27 97.5 Laboratory Data Labs 24H Laboratory Tests 2 12/08/19 10:52: Urine Opiates Screen NEGATIVE, Urine Methadone Screen NEGATIVE, Urine Barbiturates Screen NEGATIVE, Urine Phencyclidine Screen NEGATIVE, Urine Amphetamines Screen POSITIVEH, Urine Benzodiazepines Screen NEGATIVE, Urine Cocaine Metabolite Screen NEGATIVE, Urine Cannabinoids Screen POSITIVEH 12/08/19 11:13: Immature Granulocyte % (Auto) 0.2, Neutrophils (%) (Auto) 40.4, Lymphocytes (%) (Auto) 51.8H, Monocytes (%) (Auto) 5.5H, Eosinophils (%) (Auto) 1.8, Basophils (%) (Auto) 0.3, Neutrophils # (Auto) 3.5, Lymphocytes # (Auto) 4.5, Monocytes # (Auto) 0.5, Eosinophils # (Auto) 0.2, Basophils # (Auto) 0.0, Nucleated Red Blood Cells % (auto) 0.0, Anion Gap 8, Glomerular Filtration Rate > 60.0, Calcium Level 9.0, Total Bilirubin 0.8, Direct Bilirubin 0.2, Aspartate Amino Transf (AST/SGOT) 25, Alanine Aminotransferase (ALT/SGPT) 20, Alkaline Phosphatase 53, Total Creatine Kinase 345H, Creatine Kinase MB 1.8, Creatine Kinase MB Relative Index 0.52, Troponin I < 0.02, Total Protein 8.0, Albumin 3.9, Albumin/Globulin Ratio 1.0, Thyroid Stimulating Hormone (TSH) 0.954, Salicylates Level 4.6L, Acetaminophen Level < 2.0L, Ethyl Alcohol Level < 0.003 12/08/19 11:17: POC pH (Misc Panel) 7.355, POC Base Excess (Misc Panel) -4.0L, POC Saturated Percent O2 (Misc) 97, POC pO2 (Misc Panel) 98.0, POC pCO2 (Misc Panel) 38.5, POC HCO3 (Misc Panel) 21.5L, POC Total CO2 (Misc Panel) 23.0 CBC/BMP Laboratory Tests 12/08/19 11:13 Home Medications Scheduled Bictegrav/Emtricit/Tenofov Ala (Biktarvy 50-200-25 mg Tablet) 1 Each Tablet, 1 TAB PO DAILY Bupropion HCl (Wellbutrin Sr) 100 Mg Tab.sr.12h, 100 MG PO QAM Gabapentin (Gabapentin) 600 Mg Tablet, 600 MG PO BID Quetiapine Fumarate (Seroquel) 25 Mg Tablet, 1 TAB PO QPM Scheduled PRN Ibuprofen (Ibuprofen) 600 Mg Tablet, 600 MG PO BID PRN for PAIN Miscellaneous Medications [Med Rec Comment] VERIFIED WITH PHARMACY Allergies Coded Allergies: No Known Allergies (Unverified , 02/25/17) A-FIB/CHADSVASC A-FIB History Current/History of A-Fib/PAF?: No Current PO Anticoag Therapy: No IVÁN VARGAS DO Dec 08, 2019 14:19
--- NOTE | 2019-12-08 16:32 | ECGEPIP ---
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
[2019-12-08] MEDS: ENOXAPARIN 40MG/0.4ML SYRINGE (J1650 PER 10MG) SC SCH (20:45)
[2019-12-09 04:00] VITALS: BP 101/59
[2019-12-09 04:45] LABS: HEMATOCRIT 34.5 % (42.0-52.0); HEMOGLOBIN 11.7 g/dl (13.5-17.5); MEAN CORPUSCULAR HEMOGLOBIN 34.2 pg (27.0-33.0); MEAN CORPUSCULAR HGB CONC 33.9 g/dl (32.0-36.5); MEAN CORPUSCULAR VOLUME 100.9 fl (80.0-96.0); PLATELET COUNT, AUTOMATED 157 10^3/uL (150-450); RED BLOOD COUNT 3.42 10^6/uL (4.30-6.10); WHITE BLOOD COUNT 7.6 10^3/uL (4.0-10.0)
[2019-12-09 05:04] LABS: BLOOD UREA NITROGEN 16 MG/DL (7-18); CALCIUM LEVEL 8.5 MG/DL (8.5-10.1); CARBON DIOXIDE LEVEL 26 MEQ/L (21-32); CHLORIDE LEVEL 109 MEQ/L (98-107); CREATININE FOR GFR 0.84 MG/DL (0.70-1.30); GLOMERULAR FILTRATION RATE > 60.0 (>60); GLUCOSE, FASTING 74 MG/DL (70-100); POTASSIUM SERUM 3.7 MEQ/L (3.5-5.1); SODIUM LEVEL 139 MEQ/L (136-145)
[2019-12-09 06:00] VITALS: BP 99/62
[2019-12-09 08:00] VITALS: BP 105/55
[2019-12-09] MEDS: LR 1,000 ML IV SCH (08:15)
[2019-12-09] MEDS ORDERED: BIKTARVY (PATIENT'S OWN MED) PO SCH (09:00)
--- NOTE | 2019-12-09 11:42 | IPNPDOC ---
Text Note Date of Service The patient was seen on 12/09/19. NOTE SUBJECTIVE: Feels well, ate breakfast, no chest pain, SOB, now back on room air OBJECTIVE: General: NAD HEENT: NCAT, PERRLA, EOMI Respiratory: Clear to auscultation bilaterally with no wheezes, rales, or rhonchi. Cardiovascular: normal rhythm and rate, no rubs, gallops, or murmur. Abdomen: Soft, nontender, nondistended, no hepatosplenomegaly appreciated. Bowel sounds present. Extremities: 2+ pulses in the radial and dorsalis pedis bilaterally. No evidence of clubbing or cyanosis. Neuro: Grossly nonfocal examination this morning Psych: AOx3, cooperative ASSESSMENT: 34 yo W with a history of PSUD, HIV+ on Biktarvy and follows with Dr. Greer who was admitted for possible multidrug intentional overdose. Multi-drug intentional overdose: -Likely had seroquel overdose, possible Wellbutrin overdose and had recent methamphetamine use -PRN IV Ativan for seizures -discontinue IV fluids, now back on regular diet -Seizure precautions -1:1 Sitter -Discontinue serial EKGs every 6 hours to monitor for QTC prolongation, EKGs have been stable and poison control was consulted, aware chronic HIV infection: -Restart Biktarvy DVT prophylaxis with Lovenox Dispo: medsurg, pending psych eval VS,Fishbone, I+O VS, Fishbone, I+O Laboratory Tests 12/08/19 11:13 12/09/19 04:20 Vital Signs Date Time Temp Pulse Resp B/P (MAP) Pulse Ox O2 Delivery O2 Flow Rate FiO2 12/09/19 06:00 98.0 65 18 99/62 (74) 100 Nasal Cannula 2.0 I&O- Last 24 Hours up to 6 AM 12/09/19 06:00 Intake Total 1852 ml Output Total 1700 ml Balance 152 ml SANDI BECERRA MD Dec 09, 2019 07:21
[2019-12-09 16:00] VITALS: BP 111/58
--- NOTE | 2019-12-09 16:26 | DS.PDOC ---
Discharge Summary General Date of Admission Dec 08, 2019 at 10:50 Date of Discharge 12/09/2019 Discharge Summary PROCEDURES PERFORMED DURING STAY: None ADMITTING DIAGNOSES: 1. Intentional multidrug overdose DISCHARGE DIAGNOSES: 1. Intentional multidrug overdose 2. Suicide attempt 3. PSUD 4. Toxic metabolic encephalopathy COMPLICATIONS/CHIEF COMPLAINT: Overdose. HISTORY OF PRESENT ILLNESS: The patient was brought into the ED where he was found to be obtunded and unable to provide a history, but history was given that 2 bottles were found on scene one of Seroquel and the other of Wellbutrin, and with a history of recent methamphetamine use. Of note, he has a medical history of PSUD with a history of cocaine, marijuana, alcohol abuse, and recent methamphetamine use. He is also HIV+ on Biktarvy. HOSPITAL COURSE: He wasm admitted to the ICU for close monitoring and started on IV Ativan PRN f or seizures, placed on O2, was given 1 L bolus of normal saline in the emergency department, and LR for maintenance while in the ED. On day 2 morning, he was awake, alert, AOx3 and asking for breakfast. Labs remained normal and EKGs remained with normal range QTc. He was placed on 1:1 sitter given the recent suicide attempt and psychiatry was consulted. He is [facility] being [facility] DISCHARGE MEDICATIONS: Please see below. ALLERGIES: Please see below. PHYSICAL EXAMINATION ON DISCHARGE: VITAL SIGNS: Please see below. General: NAD HEENT: NCAT, PERRLA, EOMI Respiratory: Clear to auscultation bilaterally with no wheezes, rales, or rhonchi. Cardiovascular: Borderline tachycardic rate with normal rhythm, no rubs, gallops, or murmur. Abdomen: Soft, nontender, nondistended, no hepatosplenomegaly appreciated. Bowel sounds present. Extremities: 2+ pulses in the radial and dorsalis pedis bilaterally. No evidence of clubbing or cyanosis. LABORATORY DATA: Please see below. IMAGING: None this admission PROGNOSIS: Good, if he refrains from illicit drug use and takes prescription meds as prescribed. ACTIVITY: As tolerated DIET: Regular DIS[facility] PLAN: [facility] DIS[facility]ITION[facility] DISCHARGE INSTRUCTIONS: 1. Patient being discharged to the [facility] ITEMS TO FOLLOWUP ON ON OUTPATIENT: 1. Suicide attempt, depression 2. PSUD 3. chronic HIV infection DISCHARGE CONDITION: Stable TIME SPENT ON DISCHARGE: 36 minutes. Vital Signs/I&Os Vital Signs Date Time Temp Pulse Resp B/P (MAP) Pulse Ox O2 Delivery O2 Flow Rate FiO2 12/09/19 06:00 98.0 65 18 99/62 (74) 100 Nasal Cannula 2.0 I&O- Last 24 Hours up to 6 AM 12/09/19 06:00 Intake Total 1852 ml Output Total 1700 ml Balance 152 ml Laboratory Data Labs 24H Laboratory Tests 2 12/08/19 10:52: Urine Opiates Screen NEGATIVE, Urine Methadone Screen NEGATIVE, Urine Barbiturates Screen NEGATIVE, Urine Phencyclidine Screen NEGATIVE, Urine Amphetamines Screen POSITIVEH, Urine Benzodiazepines Screen NEGATIVE, Urine Cocaine Metabolite Screen NEGATIVE, Urine Cannabinoids Screen POSITIVEH 12/08/19 11:13: Immature Granulocyte % (Auto) 0.2, Neutrophils (%) (Auto) 40.4, Lymphocytes (%) (Auto) 51.8H, Monocytes (%) (Auto) 5.5H, Eosinophils (%) (Auto) 1.8, Basophils (%) (Auto) 0.3, Neutrophils # (Auto) 3.5, Lymphocytes # (Auto) 4.5, Monocytes # (Auto) 0.5, Eosinophils # (Auto) 0.2, Basophils # (Auto) 0.0, Nucleated Red Blood Cells % (auto) 0.0, Anion Gap 8, Glomerular Filtration Rate > 60.0, Calcium Level 9.0, Total Bilirubin 0.8, Direct Bilirubin 0.2, Aspartate Amino Transf (AST/SGOT) 25, Alanine Aminotransferase (ALT/SGPT) 20, Alkaline Phosphatase 53, Total Creatine Kinase 345H, Creatine Kinase MB 1.8, Creatine Kinase MB Relative Index 0.52, Troponin I < 0.02, Total Protein 8.0, Albumin 3.9, Albumin/Globulin Ratio 1.0, Thyroid Stimulating Hormone (TSH) 0.954, Salicylates Level 4.6L, Acetaminophen Level < 2.0L, Ethyl Alcohol Level < 0.003 12/08/19 11:17: POC pH (Misc Panel) 7.355, POC Base Excess (Misc Panel) -4.0L, POC Saturated Percent O2 (Misc) 97, POC pO2 (Misc Panel) 98.0, POC pCO2 (Misc Panel) 38.5, POC HCO3 (Misc Panel) 21.5L, POC Total CO2 (Misc Panel) 23.0 12/09/19 04:20: Nucleated Red Blood Cells % (auto) 0.0, Anion Gap 4L, Glomerular Filtration Rate > 60.0, Calcium Level 8.5 CBC/BMP Laboratory Tests 12/08/19 11:13 12/09/19 04:20 Discharge Medications Scheduled Bictegrav/Emtricit/Tenofov Ala (Biktarvy 50-200-25 mg Tablet) 1 Each Tablet, 1 T AB PO DAILY, (Reported) Bupropion HCl (Wellbutrin Sr) 100 Mg Tab.sr.12h, 100 MG PO QAM, (Reported) Gabapentin (Gabapentin) 600 Mg Tablet, 600 MG PO BID, (Reported) Quetiapine Fumarate (Seroquel) 25 Mg Tablet, 1 TAB PO QPM, (Reported) Scheduled PRN Ibuprofen (Ibuprofen) 600 Mg Tablet, 600 MG PO BID PRN for PAIN, (Reported) Miscellaneous Medications [Med Rec Comment] , (Reported) VERIFIED WITH PHARMACY Allergies Coded Allergies: No Known Allergies (Unverified , 02/25/17) SANDI BECERRA MD Dec 09, 2019 08:04
[2019-12-09 20:00] VITALS: BP 98/55
[2019-12-09] MEDS: ENOXAPARIN 40MG/0.4ML SYRINGE (J1650 PER 10MG) SC SCH (21:00)
--- NOTE | 2019-12-11 18:07 | ECGEPIP ---
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
--- NOTE | 2019-12-11 18:11 | ECGEPIP ---
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
--- NOTE | 2019-12-11 18:14 | ECGEPIP ---
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
== END 2019-12-09 21:14 ==
LOC: EDBD 10:49 → M ED 10:49 → M ED INP 10:50 → ENRESERV 13:04 → M ICU 13:50
PROVIDERS: ADMIT Neuromusculoskeletal Medicine & OMM; ATTEND Neuromusculoskeletal Medicine & OMM
DX: T43.592A Poisoning by other antipsychotics and neuroleptics, intentional self-harm, initial encounter (principal); F19.90 Other psychoactive substance use, unspecified, uncomplicated; F15.90 Other stimulant use, unspecified, uncomplicated; G92 Toxic encephalopathy; Y92.89 Other specified places as the place of occurrence of the external cause; B20 Human immunodeficiency virus [HIV] disease; F32.9 Major depressive disorder, single episode, unspecified; E11.9 Type 2 diabetes mellitus without complications; J30.1 Allergic rhinitis due to pollen; Z91.011 Allergy to milk products; Z81.8 Family history of other mental and behavioral disorders; Z79.899 Other long term (current) drug therapy; F17.200 Nicotine dependence, unspecified, uncomplicated
CPT/HCPCS: 36415; 36600; 80048; 80076; 80307; 82550; 82553; 82803; 84443; 85025; 85027; 93005; 93041; 94760; 96361; 96374; 96375; 99285; G0480; J2060; J2310

== ENCOUNTER 2019-12-09 16:55 | Inpatient (IN) | payer OTHER ==
[~2019-12-09] VITALS: Ht 190.5 cm; Wt 77.9 kg
[~2019-12-09 16:55] MED LIST changes: +GABA-282 PO; -GABA-843 PO; +GABA600T4 PO; +IBUP-1022 PO; +MED REC COMMENT; +SERO1TAB3 PO; +WELL100T2 PO
[2019-12-09] MEDS ORDERED: MOM 30ML SUSPENSION UDC PO PRN (19:00)
[2019-12-09] MEDS ORDERED: IBUPROFEN 400MG TAB PO PRN (19:00)
[2019-12-09] MEDS ORDERED: MAALOX 30 ML SUSP *UDC PO PRN (19:00)
[2019-12-09 22:38] VITALS: BP 98/55
[2019-12-09] MEDS: traZODone 50 MG TAB PO PRN (23:10)
[2019-12-10 06:22] VITALS: BP 102/59
--- NOTE | 2019-12-10 09:07 | CR ---
DATE OF CONSULTATION: 12/09/2019 TELEMEDICINE VIDEO ASSESSMENT (being done because of the virus pandemic, patient is aware of it). CHIEF COMPLAINT: Took an overdose. SUBJECTIVE: He is [id number]. He lives with his girlfriend. They have been together for about a year. History is obtained from the patient, as well as the chart. I have been asked to see him by the hospitalist, Dr. Schwartz, and make an assessment. The chart is reviewed. The patient interviewed. The patient is seen in the presence of staff. He says he had been smoking marijuana and suggested he tends to do that, and that he wanted to get high, felt that was not enough, and suggests he felt quite awake, and then took a bunch of Seroquel. Says he took them in order to go to sleep, washed them down with some water, says did not find that to be effective, and then took some Wellbutrin. Says he thinks the Wellbutrin is his girlfriends, and suggests that the Seroquel did not belong to anybody, and that it was simply in the bottle, which is unusual. He denies that he had been prescribed it. He then remembers his girlfriend calling the ambulance, and that someone had then said, "Thank you". He says he remembers the journey to the hospital not very clearly, but remembers being in the hospital, downstairs, and that he wanted to go the bathroom, but was told he could not as he was unable to, vaguely remembers that as well. He then remembers waking up in his bed here in the intensive care unit (ICU). He denies that it was a suicide attempt. He says there has been some stress, but he did not elaborate. The list suggests that his medications include bupropion (Wellbutrin) 100 mg in the morning, gabapentin 600 mg twice a day, Seroquel 25 mg in the afternoon, and a combination of bictegravir/emtricitabine/tenofovir (BIKTARVY) 50/200/25 mg tablet, he takes one tablet a day. He sees Dr. Greer for specialist care, as well as, primary care. He has been admitted to the ICU for observations, close monitoring, given the overdose. He is on sitter precautions. Per the hospitalist, he is currently stable medically. It should be noted he has a history of cocaine, marijuana and alcohol misuse, and had apparently been using methamphetamines recently. Medical history also includes a chronic viral infection, hay fever. He sees Dr. Greer. 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 He had been admitted to inpatient psychiatry last December for a few days with barbiturate, cannabis and cocaine use disorder, there was some question about antisocial personality disorder. He says he has been trying to consider seeing a therapist, is not in mental health care at the moment. MEDICATIONS: As above. SUBSTANCE ABUSE HISTORY: As indicated above, has history of misusing substances, methamphetamines, cocaine, cannabis. SOCIAL HISTORY: Lives with his girlfriend. They have been together for about a year. Says has family in the area and sees a grandmother regularly. MENTAL STATUS EXAMINATION: He is cooperative, though a bit guarded. Somewhat unkempt. No agitation. No psychomotor retardation. No abnormal movements noted at present. He is coherent. Denies any thoughts of harming himself or anyone else. Affect is restricted, but reactive. Currently no evidence of any psychosis, no delusional ideations elicited. He does not appear to be internally preoccupied. He is alert, oriented to time, place and person. He displays no fluctuation of consciousness. He can spell the word house forwards and backwards, can recall 2 out of 3 objects after five minutes, with prompting. Intellect is average. Judgment is quite questionable, as is insight. ASSESSMENT: Unspecified depressive disorder. Cannabis use disorder. Amphetamine use disorder. He has taken an overdose, unclear if it was intentional, he suggests it was not, and he was under the influence, and has displayed quite questionable judgment, which has endangered himself. It is also quite possible he may be minimizing his difficulties. RECOMMENDATIONS: I would suggest an inpatient psychiatry hospitalization, for further evaluation and assessment, when he is medically fully stable. This would help ascertain other psychosocial factors, and it appears misuse of substances remains a major issue. This has impacted his judgment considerably. I would anticipate a short stay in the inpatient psychiatry unit, given this assessment. Thank you for the consult. If there are any questions, please call. The assessment took 30 minutes. MAT
[2019-12-10] MEDS: BIKTARVY 50 MG/200 MG/25 MG TAB (PATIENT'S OWN MED) PO SCH (09:10)
--- NOTE | 2019-12-10 09:20 | MHHPEPDOC ---
[facility] History & Physical History and Physical DATE OF ADMISSION: Dec 09, 2019 at 21:23 HPI: Chintan presents today for concerns regarding his mental health. He reports his girlfriend got very concerned about how he is trying to take his life. He denies feeling depressed at all recently but he does feel overburdened. He admits he went to an inpatient psychiatric in last year. But he didnt have any mental health treatment nor take any medications regularly. He notes he has trouble sleeping and he is taking excessive amounts of Seroquel for it.Screens negative for bipolar and psychotic disorders. Allergies:below Medhx: HIV Psychhx: Previous admission 2019 for OD, unclear if intentional, dx depression. Fmhx: non-contributory Objective Appearance: Well groomed. Well nourished. Speech: Normal volume. Normal rate. Motor: No gross motor abnormalities. Cognition: Alert, Attentive, and Oriented to person, place, time. Thought Form: Linear and goal directed. Thought Content: No evidence of suicidal ideation. No thoughts of self harm. No evidence of aggressive or homicidal ideation. No evidence of delusions. Perception: No perceptual abnormalities noted. Judgement: intact as evidenced by decision making in the recent past. Insight: good insight into symptoms and treatment options. Assessment F19.10 Other psychoactive substance abuse, uncomplicated F43.20 Adjustment disorder, unspecified Plan Patient is a 34 years old with a history of substance use presents after ove rusing Seroquel. It appears that his admission was out of an abundance of caution as he had had an overdose that was suspicious in 2019. Observation will be done for 48 hours of the nine three nine and after set point, the patient will be released on his presentation if he is not further concerning in terms of any suicidal or homicidal ideation as he will not meet involuntary criteria likely tomorrow. We will continue home medications with no changes. Especially his home HIV medicine. Estimated length of stay, one to two days treatment. Priorities are 1. risk for suicide and 2. for affect coping and 3. for substance use. Patient will sign releases in order to coordinate safe discharge with girlfriend. Vital Signs Vital Signs Date Time Temp Pulse Resp B/P (MAP) Pulse Ox O2 Delivery O2 Flow Rate FiO2 12/10/19 06:22 98.0 66 12 102/59 (73) Room Air 12/09/19 22:38 97 Medications Scheduled Bictegrav/Emtricit/Tenofov Ala (Biktarvy 50-200-25 mg Tablet) 1 Each Tablet, 1 TAB PO DAILY, (Reported) Bupropion HCl (Wellbutrin Sr) 100 Mg Tab.sr.12h, 100 MG PO QAM, (Reported) Gabapentin (Gabapentin) 600 Mg Tablet, 600 MG PO BID, (Reported) Quetiapine Fumarate (Seroquel) 25 Mg Tablet, 1 TAB PO QPM, (Reported) Scheduled PRN Ibuprofen (Ibuprofen) 600 Mg Tablet, 600 MG PO BID PRN for PAIN, (Reported) Miscellaneous Medications [Med Rec Comment] , (Reported) VERIFIED WITH PHARMACY Allergies Coded Allergies: No Known Allergies (Unverified , 02/25/17) KOURTNEY WATSON DO Dec 10, 2019 09:20
--- NOTE | 2019-12-10 10:13 | HPEPDOC ---
General Date of Admission Dec 09, 2019 at 21:23 Date of Service: Dec 10, 2019 Attending Physician: SANDI BECERRA MD Chief Complaint The patient is a 34-year-old male admitted with a reason for visit of Unspecified Depressive Disorder. Source: Patient Exam Limitations: No limitations History of Present Illness Mr. Alejandra is a 34 yo man who was recently admitted to medicine for toxic metabolic encephalopathy 2/2 multidrug intentional overdose after he was brought to the ED where he was found to be obtunded and unable to provide a history, but history was given that 2 bottles were found on scene one of Seroquel and the other of Wellbutrin, and with a history of recent methamphetamine use. He was admitted to the ICU for close monitoring and by day 2 was awake, alert, AOx3 and eventually discharged to the [facility] for the suicide attempt and major depression. Of note, he has a medical history of PSUD with a history of cocaine, marijuana, alcohol abuse, and recent methamphetamine use. He is also HIV+ on Biktarvy and compliant with his medication. Home Medications Scheduled Bictegrav/Emtricit/Tenofov Ala (Biktarvy 50-200-25 mg Tablet) 1 Each Tablet, 1 TAB PO DAILY, (Reported) Bupropion HCl (Wellbutrin Sr) 100 Mg Tab.sr.12h, 100 MG PO QAM, (Reported) Gabapentin (Gabapentin) 600 Mg Tablet, 600 MG PO BID, (Reported) Quetiapine Fumarate (Seroquel) 25 Mg Tablet, 1 TAB PO QPM, (Reported) Scheduled PRN Ibuprofen (Ibuprofen) 600 Mg Tablet, 600 MG PO BID PRN for PAIN, (Reported) Miscellaneous Medications [Med Rec Comment] , (Reported) VERIFIED WITH PHARMACY Allergies Coded Allergies: No Known Allergies (Unverified , 02/25/17) Past Medical History Medical History 1. Suicide attempt by intentional multidrug overdose 2. PSUD 3. HIV infection 4. Prediabetes Surgical History None Family History Significant Family History: No pertinent family hx Social History * Smoker: current smoker Alcohol: heavy Drugs: cocaine, marijuana, IV drug use Recent Travel/Sick Contacts: Denies: Recent travel, Recent sick contacts Psychosocial History: Anxiety, Decreased mood, Depression, Prior suicide attempt, Suicidal thoughts A-FIB/CHADSVASC A-FIB History Current/History of A-Fib/PAF?: No Current PO Anticoag Therapy: No Age/Risk Factor Scoring CHADSVASC: CHADSVASC Response (Comments) Value Age Risk Factor Age < 65 years old 0 Gender Risk Factor Male 0 Hx of CHF No 0 Hx of HTN No 0 Hx of Stroke/TIA/or VTE No 0 Hx of Diabetes No 0 Hx of Vascular Disease No 0 Total 0 Treatment Treatment ordered: NONE Reason Anticoagulant not given: Not indicated/Infpl7hops Review of Systems Constitutional: Denies: Chills, Fever, Night Sweats Eyes: Denies: Pain, Vision change ENT: Denies: Head Aches, Ear Pain, Dysphagia Skin: Denies: Rash, Lesions, Breakdown Pulmonary: Denies: Dyspnea, Cough Cardiovascular: Denies: Chest Pain, Palpitations, Orthopnea, Paroxysmal Noc. Dyspnea, Lt Headedness Gastrointestinal: Denies: Nausea, Vomiting, Abdominal Pain, Diarrhea Genitourinary: Denies: Dysuria, Frequency, Incontinence, Retention Hematologic: Denies: Bruising, Bleeding Excessively Endocrine: Denies: Polydipsia, Polyphagia, Polyuria, Heat Intolerance, Cold Intolerance, Other Endocrine Sx Musculoskeletal: Denies: Neck Pain, Back Pain, Joint Pain, Muscle Pain, Spasms Neurological: Denies: Weakness, Numbness, Change in speech, Confusion Psych: Reports: Anxiety, Depression Physical Examination General Exam: Positive: Alert, No Acute Distress Eye Exam: Positive: PERRLA, Conjunctiva & lids normal, EOMI; Negative: Sclera icteric ENT Exam: Positive: Atraumatic, Mucous membr. moist/pink, Pharynx Normal Neck Exam: Positive: Supple; Negative: JVD, thyromegaly Chest Exam: Positive: Clear to auscultation, Normal air movement Heart Exam: Positive: Rate Normal, Regular Rhythm, Normal S1, Normal S2; Negative: Murmurs, Rubs Abdomen Exam: Positive: Normal bowel sounds, Soft; Negative: Tenderness, Hepatospenomegaly Extremity Exam: Positive: Normal pulses; Negative: Clubbing, Cyanosis, Edema Skin Exam: Positive: Nl turgor and temperature, Other skin issue (multiple tattooes, no erythema or open lesions); Negative: Breakdown, Lesion Neuro Exam: Positive: Normal Gait, Normal Speech, Strength at 5/5 X4 ext, Normal Tone, Sensation Intact, Cranial Nerves 3-12 NL, Reflexes 2+ Psych Exam: Positive: Mental status NL, Oriented x 3 Vital Signs Vital Signs Date Time Temp Pulse Resp B/P (MAP) Pulse Ox O2 Delivery O2 Flow Rate FiO2 12/10/19 06:22 98.0 66 12 102/59 (73) Room Air 12/09/19 22:38 97 Assessment/Plan Mr. Alejandra is a 34 yo man who was recently admitted to medicine for toxic metabolic encephalopathy 2/2 multidrug intentional overdose after he was brought to the ED where he was found to be obtunded and unable to provide a history, but history was given that 2 bottles were found on scene one of Seroquel and the other of Wellbutrin, and with a history of recent methamphetamine use. He was admitted to the ICU for close monitoring and by day 2 was awake, alert, AOx3 and eventually discharged to the [facility] for the suicide attempt and major depression. Of note, he has a medical history of PSUD with a history of cocaine, marijuana, alcohol abuse, and recent methamphetamine use. He is also HIV+ on Biktarvy and compliant with his medication. Plan: Suicide attempt and depression: -Mangement per primary psychiatry team Chronic HIV infection: -continue daily Biktarvy -follow up with Dr. Greer on discharge prediabetes: -diet controlled Thank you for the consultation. Medicine will sign off at this time. Plan / VTE VTE Prophylaxis Ordered?: No VTE Exclusion Mechanical Proph: Low Risk for VTE VTE Exclusion Pharmacological: At Low Risk for VTE SANDI BECERRA MD Dec 10, 2019 08:06
[2019-12-10] MEDS: NICOTINE 21MG/24HR 1 EA TRANSDERMAL TD PRN (11:21)
[2019-12-10 16:23] VITALS: BP 108/58
[2019-12-10] MEDS: traZODone 50 MG TAB PO PRN (21:14)
[2019-12-11 06:15] VITALS: BP 121/65
[2019-12-11] MEDS: BIKTARVY 50 MG/200 MG/25 MG TAB (PATIENT'S OWN MED) PO SCH (08:47)
[2019-12-11] MEDS: NICOTINE 21MG/24HR 1 EA TRANSDERMAL TD PRN (08:47)
--- NOTE | 2019-12-11 09:46 | MHDSPDOC ---
[facility] Discharge Summary Discharge Summary DATE OF ADMISSION: Dec 09, 2019 at 21:23 DATE OF DISCHARGE: Dec 11, 2019 at 12:20 DISCHARGE DIAGNOSES: See Problem list below REASON FOR ADMISSION: 34-year-old man admitted after concern for overdose, patient had consistently stated that he was taking the medication to get intoxicated CONSULTANTS INVOLVED:[ None (basic hospitalist screening)] TREATMENT AND PROGRESS ON THE UNIT : Medication changes: none, continued on home medications without change Behavior on unit:, friendly and amenable Treatment attendance: attended at times Notable issues on presentation: notable State on discharge: [stable] DISCHARGE ASSESSMENT: The patient a 34 year old man, with likely intoxication related symptoms, presented to [facility], where they observe for 48 hours and subsequently discharged once he no longer meets involuntary criteria Legal status considerations: The patient at the time of discharge did not meet criteria for involuntary admission/extension due to having a [normal] mental status exam, [fair] insight into the situation, They are engaged in the discharge process, as well as being friendly and amenable in behavioral control and havent been engaging in any observed concerning behavior or ideation recently. They decline voluntary extension/admission at this time and must be discharged in good oksana, as Im unable to make a case for holding the patient against their will. They may have historical risk factors of admissions and other interactions with psychiatry however, those are not modifiable from a clinical perspective. The patient will need to be discharged in good oksana. MENTAL STATUS EXAMINATION ON DISCHARGE: [General: Well dressed with good hygiene Speech: Spontaneous and fluid Thought processes: Linear and logical Thought content: Future orientated Abstract reasoning, and computation: Intact Description of associations: Intact Description of abnormal or psychotic thoughts:Denies any suicidal or homicidal ideation. Denies any auditory or visual hallucinations. Does not appear to be responding to internal stimuli. Does not appear to be endorsing any bizarre or paranoid ideation. Judgment: fair Insight: fair Orientation: Alert and orientated 3 Recent and remote memory: Intact Attention span and concentration: Intact Fund of knowledge: Adequate Mood: "okay" Affect: Euthymic with a full range] PLAN/FOLLOWUP ARRANGEMENTS: Follow up appointments made (PCP and MH in 5 days of D/C date) and safety plan completed. Safety Planning aspects completed prior to discharge [RN reviewed crisis hotline information and other aspects to empower patient to access care in interim before next appointment.] The amount of time spent in the coordination of care for this patient was approximately 30 minutes. Vital Signs/I&Os Vital Signs Date Time Temp Pulse Resp B/P (MAP) Pulse Ox O2 Delivery O2 Flow Rate FiO2 12/11/19 06:15 98.5 71 12 121/65 (83) Room Air 12/09/19 22:38 97 Medications Scheduled Bictegrav/Emtricit/Tenofov Ala (Biktarvy 50-200-25 mg Tablet) 1 Each Tablet, 1 TAB PO DAILY, (Reported) Bupropion HCl (Wellbutrin Sr) 100 Mg Tab.sr.12h, 100 MG PO QAM for 30 Days, #30 (Reported) Gabapentin (Gabapentin) 600 Mg Tablet, 600 MG PO BID, (Reported) Quetiapine Fumarate (Seroquel) 25 Mg Tablet, 1 TAB PO QPM for 30 Days, #30 (R eported) Scheduled PRN Ibuprofen (Ibuprofen) 600 Mg Tablet, 600 MG PO BID PRN for PAIN, (Reported) Allergies Coded Allergies: No Known Allergies (Unverified , 02/25/17) Problems (1) Adjustment disorder Plan / VTE VTE Prophylaxis Ordered?: No VTE Exclusion Mechanical Proph: Low Risk for VTE VTE Exclusion Pharmacological: At Low Risk for VTE KOURTNEY WATSON DO Dec 11, 2019 09:46
== END 2019-12-11 12:20 | disposition home or self-care (01) | DRG 755 ==
LOC: M PSY 21:23 → M ED INP 12-10 16:26 → M PSY 12-10 16:27
PROVIDERS: ADMIT Psychiatry & Neurology Psychiatry; ATTEND Psychiatry & Neurology Addiction Medicine
DX: F43.20 Adjustment disorder, unspecified (principal); B20 Human immunodeficiency virus [HIV] disease; Z79.899 Other long term (current) drug therapy; F17.200 Nicotine dependence, unspecified, uncomplicated

== ENCOUNTER 2020-05-09 15:44 | Emergency (ER) | payer OTHER ==
[~2020-05-09] VITALS: Ht 190.5 cm; Wt 80.8 kg
[~2020-05-09 15:44] MED LIST changes: -GABA-282 PO; +GABA-843 PO
[2020-05-09 15:45] VITALS: BP 128/58
[2020-05-09] MEDS ORDERED: KEFL500C17 PO (16:36)
== END 2020-05-09 16:45 | disposition home or self-care (01) ==
LOC: M ED 15:44
DX: J02.0 Streptococcal pharyngitis (principal); F12.10 Cannabis abuse, uncomplicated; Z79.899 Other long term (current) drug therapy

== ENCOUNTER → 2020-05-10 | Outpatient (REF) | payer OTHER ==
[~2020-05-10] MED LIST changes: +KEFL500C17 PO
[2020-05-10 18:33] LABS: ALBUMIN 3.8 GM/DL (3.2-5.2); ALT/SGPT 18 U/L (12-78); BILIRUBIN,TOTAL 0.3 MG/DL (0.2-1.0); BLOOD UREA NITROGEN 12 MG/DL (7-18); CALCIUM LEVEL 9.1 MG/DL (8.5-10.1); CARBON DIOXIDE LEVEL 30 MEQ/L (21-32); CHLORIDE LEVEL 107 MEQ/L (98-107); CREATININE FOR GFR 0.92 MG/DL (0.70-1.30); GLOMERULAR FILTRATION RATE > 60.0 (>60); GLUCOSE, FASTING 84 MG/DL (70-100); SODIUM LEVEL 141 MEQ/L (136-145); TOTAL PROTEIN 7.4 GM/DL (6.4-8.2)
[2020-05-14 02:06] LABS: % CD8 Pos Lymph 39.6 % (12.0-35.5); %CD4 Pos Lymphs 48.9 % (30.8-58.5); ABS Eosinophils 0.3 x10E3/uL (0.0-0.4); ABS Lymphs 4.2 x10E3/uL (0.7-3.1); ABS Monocytes 0.4 x10E3/uL (0.1-0.9); Abs CD4 Helper 2054 /uL (359-1519); Abs CD8 Suppres 1663 /uL (109-897); CD4/CD8 Ratio 1.23 (0.92-3.72); Eosinophils 4 % (Not Estab.); HCT 36.5 % (37.5-51.0); HGB 12.4 g/dL (13.0-17.7); HIV-1 RNA PCR QUANT 2 LC550285 <20 copies/mL (.); Immature Grans 0 % (Not Estab.); Lymphocytes 60 % (Not Estab.); MCH 34.5 pg (26.6-33.0); MCV 102 fL (79-97); Monocytes 6 % (Not Estab.); Neutrophils 29 % (Not Estab.); Platelets 187 x10E3/uL (150-450); RBC 3.59 x10E6/uL (4.14-5.80); RDW 12.8 % (11.6-15.4)
== END ==
LOC: M SFHCPLAZ 14:07
PROVIDERS: ATTEND Internal Medicine Infectious Disease
DX: B20 Human immunodeficiency virus [HIV] disease (principal)

== ENCOUNTER → 2020-05-11 | Outpatient (REF) | payer OTHER ==
[2020-05-11 11:59] LABS: APPEARANCE, URINE HAZY (CLEAR); BACTERIA, URINE AUTO NEGATIVE (NEGATIVE); BILIRUBIN, URINE AUTO NEGATIVE (NEGATIVE); BLOOD, URINE BLOOD NEGATIVE (NEGATIVE); COLOR, URINE YELLOW (YELLOW); GLUCOSE, URINE (UA) AUTO NEGATIVE (NEGATIVE); KETONE, URINE AUTO NEGATIVE (NEGATIVE); LEUKOCYTE ESTERASE, URINE AUTO 1+ (NEGATIVE); MUCUS, URINE SMALL (NEGATIVE); NITRITE, URINE AUTO NEGATIVE (NEGATIVE); PROTEIN, URINE AUTO NEGATIVE (NEGATIVE); RBC, URINE AUTO 10 /HPF (0-3); SPECIFIC GRAVITY URINE AUTO 1.025 (1.002-1.035); SQUAMOUS EPITHELIAL CELL UR AU 1 /HPF (0-6); WBC, URINE AUTO 12 /HPF (0-3)
[2020-05-11 14:06] LABS: CHLAMYDIA DNA AMPLIFICATION NEGATIVE (NEGATIVE); GC DNA AMPLIFICATION NEGATIVE (NEGATIVE)
== END ==
LOC: M SFHCPLAZ 11:01
PROVIDERS: ATTEND Internal Medicine Infectious Disease
DX: B20 Human immunodeficiency virus [HIV] disease (principal)

== ENCOUNTER 2020-05-15 08:48 | Emergency (ER) | payer OTHER ==
[~2020-05-15] VITALS: Ht 190.5 cm; Wt 80.1 kg
[2020-05-15 08:48] VITALS: BP 139/97
== END 2020-05-15 10:03 | disposition home or self-care (01) ==
LOC: M ED 08:48
DX: B02.9 Zoster without complications (principal); B20 Human immunodeficiency virus [HIV] disease; F17.200 Nicotine dependence, unspecified, uncomplicated; F19.10 Other psychoactive substance abuse, uncomplicated; Z79.899 Other long term (current) drug therapy

== ENCOUNTER 2020-07-27 09:27 | Inpatient (IN) | payer OTHER ==
[~2020-07-27] VITALS: Ht 190.5 cm; Wt 77.3 kg
[~2020-07-27 09:27] MED LIST changes: +GABA-282 PO; -GABA-843 PO
[2020-07-27 10:13] LABS: HEMATOCRIT 39.6 % (42.0-52.0); HEMOGLOBIN 13.2 g/dl (13.5-17.5); MEAN CORPUSCULAR HEMOGLOBIN 33.7 pg (27.0-33.0); MEAN CORPUSCULAR HGB CONC 33.3 g/dl (32.0-36.5); PLATELET COUNT, AUTOMATED 253 10^3/uL (150-450); RED BLOOD COUNT 3.92 10^6/uL (4.30-6.10); WHITE BLOOD COUNT 10.5 10^3/uL (4.0-10.0)
[2020-07-27 10:45] LABS: ACETAMINOPHEN LEVEL < 2.0 UG/ML (10.0-30.0); ALBUMIN 4.5 GM/DL (3.2-5.2); ALT/SGPT 547 U/L (12-78); BILIRUBIN,DIRECT 0.4 MG/DL (0.0-0.2); BILIRUBIN,TOTAL 1.2 MG/DL (0.2-1.0); BLOOD UREA NITROGEN 15 MG/DL (7-18); CALCIUM LEVEL 9.1 MG/DL (8.5-10.1); CARBON DIOXIDE LEVEL 23 MEQ/L (21-32); CHLORIDE LEVEL 108 MEQ/L (98-107); CREATININE FOR GFR 1.11 MG/DL (0.70-1.30); ETHYL ALCOHOL (ETHANOL) 0.003 % (0.000-0.010); GLOMERULAR FILTRATION RATE > 60.0 (>60); GLUCOSE, FASTING 104 MG/DL (70-100); POTASSIUM SERUM 3.3 MEQ/L (3.5-5.1); SALICYLATE LEVEL 4.1 MG/DL (5.0-30.0); SODIUM LEVEL 142 MEQ/L (136-145); THYROID STIMULATING HORMONE 0.125 uIU/ML (0.358-3.740); TOTAL PROTEIN 8.5 GM/DL (6.4-8.2)
[2020-07-27 13:59] LABS: AMPHETAMINES LEVEL URINE NEGATIVE (NEGATIVE); BARBITURATES URINE NEGATIVE (NEGATIVE); BENZODIAZEPINES URINE NEGATIVE (NEGATIVE); CANNABINOIDS URINE POSITIVE (NEGATIVE); COCAINE METABOLITE URINE NEGATIVE (NEGATIVE); METHADONE URINE NEGATIVE (NEGATIVE); OPIATES URINE NEGATIVE (NEGATIVE); PHENCYCLIDINE URINE NEGATIVE (NEGATIVE)
[2020-07-27] MEDS ORDERED: OLANZapine ORAL DISINTEGRATING TAB 5MG PO ONE (17:45)
[2020-07-27] MEDS ORDERED: MAALOX 30 ML SUSP *UDC PO PRN (20:00)
[2020-07-27] MEDS ORDERED: ACETAMINOPHEN TAB 650MG DOSE (2X325MG) PO PRN (20:00)
[2020-07-27] MEDS ORDERED: MOM 30ML SUSPENSION UDC PO PRN (20:00)
--- OUTSIDE RECORDS SUMMARY | 2020-07-27 20:57 | CCD ---
Author Author [facility] Organization [facility] Address Unknown Phone Unavailable Care Team Providers Care Imaging Assistant Name Role Phone Bernardbernie Nikki Unavailable PROBLEMS Type Condition ICD9-CM Code [id number] Code Onset Dates Condition S tatus SNOMED Code Notes Problem Cervical adenopathy R59.0 Active 630347369 Problem Substance abuse F19.10 Active 55633084 Problem HIV disease B20 Active 57517704 Problem Other microscopic hematuria R31.29 Active 1979 69426 Problem Weight loss R63.4 Active 83434972 Problem Folliculitis L73.9 Active 31705582 Problem Anxiety F41.9 Active 04136528 Problem Tobacco abuse Z72.0 Active 444959745 Problem Neuropathy G62.9 Active 051212175 Problem Lactose intolerance E73.9 Active 967027744 ALLERGIES No Known Allergies ENCOUNTERS from 1985 to 2020-05-18 Encounter Location Date Provider Diagnosis [address] [address] Apr, Nikki Plummer IMMUNIZATIONS Vaccine Route Administration Date Status Influenza (18 yrs & older) Flublok IM Intramuscular May 10, 2020 Administered Hepatitis A Adult 1.0mL (Havrix) IM Intramuscular May 10, 2020 Administered Meningococcal 0.5mL (Menveo Groups A,C,Y & W-135) IM Intramuscul ar Jul 31, 2019 Administered Influenza (18 yrs & older) Flublok IM Intramuscular May 01, 2019 Administered Hepatitis A Adult 1.0mL (Havrix) IM Intramuscular May 01, 2019 Administered Hepatitis A Adult 1.0mL (Havrix) IM Intramuscular Feb 27, 2019 Administered Pneumococcal Adult 0.5mL (Pneumovax 23) IM Intramuscular Jul 31, 2019 Administered TDAP 0.5mL (Boostrix) Unknown December 11, 2015 Administer ed Pneumococcal 0.5mL (Prevnar 13) IM Intramuscular Feb 27, 2019 Administered SOCIAL HISTORY Tobacco Use: Social History Observation Description Date Details (start date - stop date) Current Smoker Sex Assigned At : Social History Observation Description Sex Assigned At Unknown Education: Question Answer Notes Level of Education: Not finished High School Audit Question Answer Notes Total Score: 1 Interpretation: Alcohol Education Language: Question Answer Notes Languages spoken: Khmer Jewish: Question Answer Notes 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 Yes Have you ever had an STD? No with Women only Use protection? Yes How often? All of the time Drug and Alcohol Question Answer Notes Total Score: 0 Interpretation: No problems reported Alcohol Screening: Question Answer Notes Did you have a drink containing alcohol in the past year? Ye s Points 1 Interpretation Negative How many drinks did you have on a typica l day when you were drinking in the past year? 1 or 2 (0 points) How often did you have a drink containing alcohol in t he past year? Monthly or less (1 point) Tobacco Use: Question Answer Notes Are you a: current smoker Smoking Cessation Information Given 08/08/2019 Patient counseled on the dangers of tobacco use and urged to quit: 08/08/2019 How many cigarettes a day do you smoke? 5 or less Are you interested in quitting? Not ready to quit Counseled the patient on smoking effects, education provided 08/08/2019 REASON FOR REFERRAL No Information VITAL SIGNS No information MEDICATIONS Medication SIG (Take, Route, Frequency, Duration) Notes Start Da te End Date Status Biktarvy 50-200-25 MG 1 tablet Orally Once a day for 30 day(s) Active Gabapentin 600 MG 1 tablet Orally bid for 30 Active Hydrocortisone 2.5 % 1 application topically to r ight neck region Twice a day for 7 day(s) Jul, Active Clindamycin Phosphate 1 % 1 application Externally Twice a day f or 14 day(s) May, Active Ibuprofen 600 MG 1 tablet with food or milk a s needed Orally bid prn for 30 Days Nov, Active PROCEDURES No Information RESULTS No Results REASON FOR VISIT ER Visit [facility] 11/28; Shingles MEDICAL (GENERAL) HISTORY Type Description Date Medical History history of shingles 2017 ER visit right shoulder and right side of neck Medical History substance abuse including cocaine and al cohol Medical History hx depression Medical History /Remisson marjiuana use per pt 12/2018 Medical History tobacco abuse Medical History lactose intolerance Medical History spring allergies Surgical History NONE Hospitalization History Soma overdose admitted to [facility] 12/2018 Goals Section No Information Health Concerns No Information MEDICAL EQUIPMENT No Information MENTAL STATUS No Information FUNCTIONAL STATUS No Information ASSESSMENTS No Information PLAN OF TREATMENT Medication Medication Name Sig Start Date Stop Date Clindamycin Phosphate 1 % 1 application Externally Twice a d ay for 14 day(s) May, Next Appt Details Provider Name:Piero Barr Percy, 2020-07-2 2 01:00:00 PM, [address] [place], [address], Insurance Providers Payer Name Payer Address Payer Phone Insured Name Patient Relati onship to Insured Coverage Start Date Coverage End Date [facility] [address] [facility] [phone] SHAHRIAR HUMMEL self
--- OUTSIDE RECORDS SUMMARY | 2020-07-27 20:57 | CCD ---
Author Author [facility] Organization [facility] Address Unknown Phone Unavailable Care Team Providers Care Industrial Economics Professor Name Role Phone Piero Greer Unavailable PROBLEMS Type Condition ICD9-CM Code [id number] Code Onset Dates Condition S tatus SNOMED Code Notes Problem HIV antibody positive Z21 Active 547324491 Problem Cervical adenopathy R59.0 Active 555410320 Problem Substance abuse F19.10 Active 53121154 Problem Lactose intolerance E73.9 Active 705221133 Problem Neuropathy G62.9 Active 911520896 Problem Weight loss R63.4 Active 15961234 Problem Anxiety F41.9 Active 30909384 Problem Tobacco abuse Z72.0 Active 591853499 Problem HIV disease B20 Active 89148631 ALLERGIES No Known Allergies ENCOUNTERS from 1985 to 2020-05-04 Encounter Location Date Provider Diagnosis [address] [address] Apr, Piero Greer IMMUNIZATIONS Vaccine Route Administration Date Status Influenza (18 yrs & older) Flublok IM Intramuscular May 01, 2019 Administered Meningococcal 0.5mL (Menveo Groups A,C,Y & W-135) IM Intramuscul ar Jul 31, 2019 Administered Hepatitis A Adult 1.0mL (Havrix) [...] Education Language: Question Answer Notes Languages spoken: German Shinto: Question Answer Notes Shinto 08 Buddhism Sexual Hx: Question Answer Notes Had sex [...] Once a day for 30 day(s) Active Hydrocortisone 2.5 % 1 application topically to r ight neck region Twice a day for 7 day(s) Jul, Active Ibuprofen 600 MG 1 tablet with food or milk a s needed Orally bid prn for 30 Days Nov, Active Biktarvy 50-200-25 MG TAKE ONE TABLET BY MOUTH EVERY DAY for 30 Active Gabapentin 600 MG 1 tablet Orally bid for 30 Active PROCEDURES No Information RESULTS No Results REASON FOR VISIT Biktarvy 50-200-25 MG Tablet MEDICAL (GENERAL) HISTORY Type Description Date Medical History history of shingles 2017 ER visit right shoulder and right side of neck Medical History substance abuse including cocaine and al cohol Medical History hx depression Medical History /Remisson marjiuana use per pt 12/2018 Medical History tobacco abuse Medical History lactose intolerance Medical History spring allergies Surgical History NONE Hospitalization History Soma overdose admitted to [facility] 12/2018 Goals Section No Information Health Concerns No Information MEDICAL EQUIPMENT No Information MENTAL STATUS No Information FUNCTIONAL STATUS No Information ASSESSMENTS No Information PLAN OF TREATMENT Medication Medication Name Sig Start Date Stop Date Ibuprofen 600 MG 1 tablet with food or milk a s needed Orally bid prn for 30 Days Nov, Biktarvy 50-200-25 MG 1 tablet Orally Once a day for 30 day(s) Gabapentin 600 MG 1 tablet Orally bid for 30 Next Appt Details Provider Name:Piero Barr Percy, 2020-11-2 3 01:00:00 PM, [address] [place] [address], [address], Insurance Providers Payer Name Payer Address Payer Phone Insured Name Patient Relati onship to Insured Coverage Start Date Coverage End Date [facility] [address] [facility] [id number] SHAHRIAR HUMMEL self
--- OUTSIDE RECORDS SUMMARY | 2020-07-27 20:57 | CCD ---
Author Author [facility] Organization [facility] Address Unknown Phone Unavailable Care Team Providers Care Fashion Marketer Name Role Phone Piero Greer Unavailable PROBLEMS Type Condition ICD9-CM Code [id number] Code Onset Dates Condition S tatus SNOMED Code Notes Problem Cervical adenopathy R59.0 Active 995376914 Problem Substance abuse F19.10 Active 03507276 Problem HIV disease B20 Active 30830156 Problem Other microscopic hematuria R31.29 Active 1979 29587 Problem Weight loss R63.4 Active 32172161 Problem Folliculitis L73.9 Active 42562006 Problem Anxiety F41.9 Active 37361609 Problem Tobacco abuse Z72.0 Active 283493672 Problem Neuropathy G62.9 Active 326885010 Problem Lactose intolerance E73.9 Active 843418394 ALLERGIES No Known Allergies ENCOUNTERS from 1985 to 2020-07-06 Encounter Location Date Provider Diagnosis [address] [address] Jun, Piero Greer HIV disease B20 IMMUNIZATIONS Vaccine Route Administration Date Status Influenza (18 yrs & older) Flublok IM Intramuscular May 10, 2020 Administered Influenza (18 yrs & older) Flublok IM Intramuscular May 01, 2019 Administered Meningococcal 0.5mL (Menveo Groups A,C,Y & W-135) IM Intramuscul ar Jul 31, 2019 Administered Hepatitis A Adult 1.0mL (Havrix) IM Intramuscular May 10, 2020 Administered Hepatitis [...] Education Language: Question Answer Notes Languages spoken: Syrian Sabianist: Question Answer Notes Sabianist 08 Judaism Sexual Hx: Question Answer Notes Had sex [...] Notes Start Da te End Date Status Clindamycin Phosphate 1 % 1 application Externally Twice a day f or 14 day(s) May, Active Gabapentin 600 MG 1 tablet Orally bid for 30 Active Hydrocortisone 2.5 % 1 application topically to r ight neck region Twice a day for 7 day(s) Jul, Active Biktarvy 50-200-25 MG 1 tablet Orally Once a day for 30 day(s) Active Ibuprofen 600 MG 1 tablet with food or milk a s needed Orally bid prn for 30 Days Nov, Active PROCEDURES No Information RESULTS No Results REASON FOR VISIT refill MEDICAL (GENERAL) HISTORY Type Description Date Medical History history of shingles 2017 ER visit right shoulder and right side of neck Medical History substance abuse including cocaine and al cohol Medical History hx depression Medical History /Remisson marjiuana use per pt 12/2018 Medical History tobacco abuse Medical History lactose intolerance Medical History spring allergies Surgical History NONE Hospitalization History Soma overdose admitted to [facility] 12/2018 Goals Section No Information Health Concerns No Information MEDICAL EQUIPMENT No Information MENTAL STATUS No Information FUNCTIONAL STATUS No Information ASSESSMENTS Encounter Date Diagnosis Assessment Notes Treatment Notes Treatm ent Clinical Notes Jun, HIV disease (ICD-10 - B20) PLAN OF TREATMENT Medication Medication Name Sig Start Date Stop Date Clindamycin Phosphate 1 % 1 application Externally Twice a d ay for 14 day(s) May, Biktarvy 50-200-25 MG 1 tablet Orally Once a day for 30 day(s) Next Appt Details Provider Name:Piero Barr Percy, 2020-02-2 2 01:00:00 PM, [address] [place], [address], Insurance Providers Payer Name Payer Address Payer Phone Insured Name Patient Relati onship to Insured Coverage Start Date Coverage End Date [facility] [address] [facility] [phone] SHAHRIAR HUMMEL self
--- OUTSIDE RECORDS SUMMARY | 2020-07-27 20:57 | CCD ---
Author Author [facility] Organization [facility] Address Unknown Phone Unavailable Care Team Providers Care Cylinder Block Mechanic Name Role Phone Piero Greer Unavailable PROBLEMS Type Condition ICD9-CM Code [id number] Code Onset Dates Condition S tatus SNOMED Code Notes Problem Cervical adenopathy R59.0 Active 832249316 Problem Substance abuse F19.10 Active 01415578 Problem HIV disease B20 Active 86136085 Problem Other microscopic hematuria R31.29 Active 1979 37506 Problem Weight loss R63.4 Active 72279372 Problem Folliculitis L73.9 Active 30779760 Problem Anxiety F41.9 Active 66156272 Problem Tobacco abuse Z72.0 Active 544729327 Problem Neuropathy G62.9 Active 877994193 Problem Lactose intolerance E73.9 Active 470671630 ALLERGIES No Known Allergies ENCOUNTERS from 1985 to 2020-05-19 Encounter Location Date Provider Diagnosis [address] [address] Apr, Piero Greer HIV disease B20 ; Weight loss R63.4 ; [place] bstance abuse F19.10 ; Tobacco abuse Z72.0 ; Anxiety F41.9 ; Marijuana use F12.90 and Encounter for immunization Z23 IMMUNIZATIONS Vaccine Route Administration Date Status Influenza [...] Education Language: Question Answer Notes Languages spoken: Ukrainian Latter-Day: Question Answer Notes Latter-Day 08 Nondenominational Sexual Hx: Question Answer Notes Had sex [...] REASON FOR REFERRAL No Information VITAL SIGNS Weight 181 lbs Apr, Height 74 in Apr, BMI 23.24 kg/m2 Apr, Heart Rate 70 /min Apr, Respiratory Rate 16 /min Apr, Temperature 97.9 degrees Fahrenheit Apr, Oximetry 99% Apr, Blood pressure systolic 100 mm Hg Apr, Blood pressure diastolic 64 mm Hg Apr, MEDICATIONS Medication SIG (Take, Route, Frequency, Duration) [...] prn for 30 Days Nov, Active PROCEDURES Procedure Date Ordered Result Body Site Immunization: Flublok Quadrivalent (18 years & older) 0.5mL IM (Influenza) 2020-05-10 N/A Immunization: Havrix Adult 1.0mL IM (Hepatitis A) 2020-05-10 N/A RESULTS No Results REASON FOR VISIT HIV MEDICAL (GENERAL) HISTORY Type Description Date Medical History history of shingles 2017 ER visit right shoulder and right side of neck Medical History substance abuse including cocaine and al cohol Medical History hx depression Medical History /Remisson marjiuana use per pt 12/2018 Medical History tobacco abuse Medical History lactose intolerance Medical History spring allergies Surgical History NONE Hospitalization History Soma overdose admitted to [facility] 12/2018 Goals Section No Information Health Concerns No Information MEDICAL EQUIPMENT No Information MENTAL STATUS No Information FUNCTIONAL STATUS No Information ASSESSMENTS Encounter Date Diagnosis Assessment Notes Treatment Notes Treatm ent Clinical Notes Apr, HIV disease (ICD-10 - B20) Patient advised on 100% compliant with HIV medication CD4 over 2000 and viral load undetectable. His significant other knows about his HIV status she is not taking prep because it gave her side effects but his viral load is undetectable and therefore untransmittable Apr, Weight loss (ICD-10 - R63.4) Patient encouraged to eat 3 meals a day, he has gained 10 LBS since last visit feeling great Apr, Substance abuse (ICD-10 - F19.10) Resolved encouraged to cut back on marijuana use his significant other states he also uses mildly although he never admitted to that Apr, Tobacco abuse (ICD-10 - Z72.0) He smokes about 5 cigarettes a day and working to cut back and discontinue soon. We even discussed discontinuation in 5 months one cigarette a month. I discussed smoking cessation patient not ready at this time, smokes 5 cigarettes a day max Apr, Anxiety (ICD-10 - F41.9) He needs referral to psychiatry he has past diagnosis of depression, wants to go to NA meetings, and sponsor them. 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 He wants a list For NA meeting, his drug of choice is marijuana, tried IV ta Apr, Encounter for immunization (ICD-10 - Z23) PLAN OF TREATMENT Medication Medication Name Sig Start Date Stop Date Clindamycin Phosphate 1 % 1 application Externally Twice a d ay for 14 day(s) May, Treatment Notes Assessment Notes Clinical Notes HIV disease Patient advised on 100% comp liant with HIV medication CD4 over 2000 and viral load undetectable. His significant other knows about his HIV status she is not taking prep because it gave her side effects but his viral load is undetectable and therefore untransmittable Weight loss Patient encouraged t o eat 3 meals a day, he has gained 10 LBS since last visit feeling great Substance abuse Resolved encouraged to cut ba ck on marijuana use his significant other states he also uses mildly although he never admitted to that Tobacco abuse He smokes about 5 cigarettes a day and working to cut back and discontinue soon. We even discussed discontinuation in 5 months one cigarette a month. I discussed smoking cessation patient no t ready at this time, smokes 5 cigarettes a day max Anxiety He needs referral to psychiatry he has past diagnosis of depression, wants to go to NA meetings, and sponsor them. 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 He wants a list For NA meeting, his drug of choice is marijuana, tried IV ta Next Appt Details 4 Months Reason: Provider Name:Piero Greer, 2020-07-20 2 01:00:00 PM, [address] [place], [address], Insurance Providers Payer Name Payer Address Payer Phone Insured Name Patient Relati onship to Insured Coverage Start Date Coverage End Date [facility] [address] [facility] [phone] SHAHRIAR HUMMEL self
--- OUTSIDE RECORDS SUMMARY | 2020-07-27 21:24 | CCD ---
Author Author [facility] Address Unknown Phone Unavailable Support Name Relationship Address Phone INGRIS SALDANA Next Of Kin [address] [place] [address] PRICECHOP Next Of Kin [address] [place] [address] UNEMPLOYED Next Of Kin [address] [place] [address] UE Next Of Kin Unknown Unavailable ERICA SIMONS Next Of Kin [address] [place] [address] MESSI CABRAL Next Of Kin [address] [place] [address] [place] [address] [employer] Next Of Kin [address] [place] [address] [place] [address] RON HOPPER Next Of Kin [address] [place] [address] Erica Simons ECON [address] [place] [address] [place] [address] Unavailable Re-disclosure Warning The records that you are about to access may contain information from federally-assisted alcohol or drug abuse programs. If such information is present, then the following federally mandated warning applies: This information has been disclosed to you from records protected by federal confidentiality rules (42 CFR part 2). The federal rules prohibit you from making any further disclosure of this information unless further disclosure is expressly permitted by the written consent of the person to whom it pertains or as otherwise permitted by 42 CFR part 2. A general authorization for the release of medical or other information is NOT sufficient for this purpose. The Federal rules restrict any use of the information to criminally investigate or prosecute any alcohol or drug abuse patient.The records that you are about to access may contain highly sensitive health information, the redisclosure of which is protected by Article 27-F of the [place] Public [facility] law. If you continue you may have access to information: Regarding HIV / AIDS; Provided by facilities licensed or operated by the [place] Office of Mental Health; or Provided by the [place] Office for People With Developmental Disabilities. If such information is present, then the following [place] mandated warning applies: This information has been disclosed to you from confidential records which are protected by state law. State law prohibits you from making any further disclosure of this information without the specific written consent of the person to whom it pertains, or as otherwise permitted by law. Any unauthorized further disclosure in violation of state law may result in a fine or group home sentence or both. A general authorization for the release of medical or other information is NOT sufficient authorization for further disc losure. Encounters Encounter Providers Location Date Indications Data Source(s ) Unknown [address] [facility] [place] [address] 07/06/2020 12:00:00 AM EST eCW1 ([facility]) Unknown [address] [facility] [address] 05/17/2020 12:00:00 AM EST eCW1 ([facility]) Outpatient [address] [facility] [address] 05/10/2020 12:00:00 AM EST eCW1 ([facility]) Unknown [address] [facility] [place] [address] 05/04/2020 12:00:00 AM EST eCW1 ([facility]) Unknown [address] [facility] [place] [address] 04/19/2020 12:00:00 AM EST eCW1 ([facility] [place]) Unknown [address] [facility] [place] [address] 03/29/2020 12:00:00 AM EDT eCW1 ([facility]) Unknown [address] [facility] [place] [address] 03/29/2020 12:00:00 AM EDT eCW1 ([facility]) [place] [address] [facility] [address] [place] [address] 03/18/2020 12:00:00 AM EDT eCW1 ([facility]) [facility] [place] [address] [facility] [address] [place] [address] 12/12/2019 12:00:00 AM EDT eCW1 ([facility]) Outpatient 12/02/2019 05:04:00 AM EDT [facility] [place] [address] [facility] [address] 11/23/2019 12:00:00 AM EDT eCW1 ([facility]) [place] [address] [facility] [place] [address] 11/17/2019 12:00:00 AM EDT eCW1 ([facility]) [facility] [address] [facility] [place] [address] 10/30/2019 12:00:00 AM EDT eCW1 ([facility]) [facility] [address] [facility] [place] [address] 08/08/2019 12:00:00 AM EST eCW1 ([facility]) [facility] [address] [facility] [place] [address] 08/08/2019 12:00:00 AM EST eCW1 ([facility]) [facility] [address] [facility] [place] [address] 07/31/2019 12:00:00 AM EST eCW1 ([facility]) [facility] [address] [facility] [place] [address] 06/03/2019 12:00:00 AM EST eCW1 ([facility]) Immunizations Vaccine Date Status Description Data Source(s) Hep A, adult 05/10/2020 02:02:00 PM EST completed e CW1 ([facility]) Hep A, adult 05/10/2020 02:02:00 PM EST completed e CW1 ([facility]) Hep A, adult 05/10/2020 02:02:00 PM EST completed e CW1 ([facility]) influenza, recombinant, quadrIvalent,injectable, prese rvative free 05/10/2020 02:01:00 PM EST completed eCW1 (Replaced by [facility]) influenza, recombinant, quadrIvalent,injectable, prese rvative free 05/10/2020 02:01:00 PM EST completed eCW1 (Replaced by [facility]) influenza, recombinant, quadrIvalent,injectable, prese rvative free 05/10/2020 02:01:00 PM EST completed eCW1 (Replaced by [facility]) pneumococcal polysaccharide PPV23 07/31/2019 01:33:00 PM EST comple liz eCW1 ([facility]) pneumococcal polysaccharide PPV23 07/31/2019 01:33:00 PM EST comple liz eCW1 ([facility]) pneumococcal polysaccharide PPV23 07/31/2019 01:33:00 PM EST comple liz eCW1 ([facility]) pneumococcal polysaccharide PPV23 07/31/2019 01:33:00 PM EST comple liz eCW1 ([facility]) pneumococcal polysaccharide PPV23 07/31/2019 01:33:00 PM EST comple liz eCW1 ([facility]) pneumococcal polysaccharide PPV23 07/31/2019 01:33:00 PM EST comple liz eCW1 ([facility]) pneumococcal polysaccharide PPV23 07/31/2019 01:33:00 PM EST comple liz eCW1 ([facility]) pneumococcal polysaccharide PPV23 07/31/2019 01:33:00 PM EST comple liz eCW1 ([facility]) pneumococcal polysaccharide PPV23 07/31/2019 01:33:00 PM EST comple liz eCW1 ([facility]) pneumococcal polysaccharide PPV23 07/31/2019 01:33:00 PM EST comple liz eCW1 ([facility]) pneumococcal polysaccharide PPV23 07/31/2019 01:33:00 PM EST comple liz eCW1 ([facility]) Meningococcal MCV4O 07/31/2019 01:32:00 PM EST completed eCW1 ([facility]) Meningococcal MCV4O 07/31/2019 01:32:00 PM EST completed eCW1 ([facility]) Meningococcal MCV4O 07/31/2019 01:32:00 PM EST completed eCW1 ([facility]) Meningococcal MCV4O 07/31/2019 01:32:00 PM EST completed eCW1 ([facility]) Meningococcal MCV4O 07/31/2019 01:32:00 PM EST completed eCW1 ([facility]) Meningococcal MCV4O 07/31/2019 01:32:00 PM EST completed eCW1 ([facility]) Meningococcal MCV4O 07/31/2019 01:32:00 PM EST completed eCW1 ([facility]) Meningococcal MCV4O 07/31/2019 01:32:00 PM EST completed eCW1 ([facility]) Meningococcal MCV4O 07/31/2019 01:32:00 PM EST completed eCW1 ([facility]) Meningococcal MCV4O 07/31/2019 01:32:00 PM EST completed eCW1 ([facility]) Meningococcal MCV4O 07/31/2019 01:32:00 PM EST completed eCW1 ([facility]) Medications Medication Brand Name Start Date Product Form Dose Route Admi nistrative Instructions Pharmacy Instructions Status Indications Reaction Description Data Source(s) Clindamycin 10 MG/ML Topical Solution Clindamycin Phos phate 1 % Clindamycin Phosphate 1 % 05/18/2020 12:00:00 AM EST 1.0 {application} active Clindamycin Phosphate 1 % eCW1 ([facility]) Clindamycin 10 MG/ML Topical Solution Clindamycin Phos phate 1 % Clindamycin Phosphate 1 % 05/18/2020 12:00:00 AM EST 1.0 {application} active Clindamycin Phosphate 1 % eCW1 ([facility]) Clindamycin 10 MG/ML Topical Solution Clindamycin Phos phate 1 % Clindamycin Phosphate 1 % 05/18/2020 12:00:00 AM EST 1.0 {application} active Clindamycin Phosphate 1 % eCW1 ([facility]) Ibuprofen 600 MG Oral Tablet Ibuprofen 600 MG 11/17/2019 12:00:00 AM E DT active Ibuprofen 600 MG [facility]CW[facility] Ibuprofen 600 MG Oral Tablet Ibuprofen 600 MG 11/17/2019 12:00:00 AM E DT active Ibuprofen 600 MG eCW1 ([facility]) Ibuprofen 600 MG Oral Tablet Ibuprofen 600 MG 11/17/2019 12:00:00 AM E DT active Ibuprofen 600 MG eCW1 ([facility]) Ibuprofen 600 MG Oral Tablet Ibuprofen 600 MG 11/17/2019 12:00:00 AM E DT active Ibuprofen 600 MG eCW1 ([facility]) Ibuprofen 600 MG Oral Tablet Ibuprofen 600 MG 11/17/2019 12:00:00 AM E DT active Ibuprofen 600 MG eCW1 ([facility]) Ibuprofen 600 MG Oral Tablet Ibuprofen 600 MG 11/17/2019 12:00:00 AM E DT active Ibuprofen 600 MG eCW1 ([facility]) Ibuprofen 600 MG Oral Tablet Ibuprofen 600 MG 11/17/2019 12:00:00 AM E DT active Ibuprofen 600 MG eCW1 ([facility]) Ibuprofen 600 MG Oral Tablet Ibuprofen 600 MG 11/17/2019 12:00:00 AM E DT active Ibuprofen 600 MG eCW1 ([facility]) Ibuprofen 600 MG Oral Tablet Ibuprofen 600 MG 11/17/2019 12:00:00 AM E DT active Ibuprofen 600 MG eCW1 ([facility]) Ibuprofen 600 MG Oral Tablet Ibuprofen 600 MG 11/17/2019 12:00:00 AM E DT active Ibuprofen 600 MG eCW1 ([facility]) Hydrocortisone 0.025 MG/MG Topical Ointment Hydrocorti sone 2.5 % Hydrocortisone 2.5 % 08/08/2019 12:00:00 AM EST 1.0 {application} active Hydrocortisone 2.5 % eCW1 ([facility]) Hydrocortisone 0.025 MG/MG Topical Ointment Hydrocorti sone 2.5 % Hydrocortisone 2.5 % 08/08/2019 12:00:00 AM EST 1.0 {application} active Hydrocortisone 2.5 % eCW1 ([facility]) Hydrocortisone 0.025 MG/MG Topical Ointment Hydrocorti sone 2.5 % Hydrocortisone 2.5 % 08/08/2019 12:00:00 AM EST 1.0 {application} active Hydrocortisone 2.5 % eCW1 ([facility]) gabapentin 600 MG Oral Tablet Gabapentin 600 MG Gabapentin 6 00 MG 08/08/2019 12:00:00 AM EST active 1 tablet eCW1 ([facility]) Hydrocortisone 0.025 MG/MG Topical Ointment Hydrocorti sone 2.5 % Hydrocortisone 2.5 % 08/08/2019 12:00:00 AM EST active 1 application eCW1 ([facility]) Hydrocortisone 0.025 MG/MG Topical Ointment Hydrocorti sone 2.5 % Hydrocortisone 2.5 % 08/08/2019 12:00:00 AM EST 1.0 {application} active Hydrocortisone 2.5 % eCW1 ([facility]) Hydrocortisone 0.025 MG/MG Topical Ointment Hydrocorti sone 2.5 % Hydrocortisone 2.5 % 08/08/2019 12:00:00 AM EST 1.0 {application} active Hydrocortisone 2.5 % eCW1 ([facility]) Hydrocortisone 0.025 MG/MG Topical Ointment Hydrocorti sone 2.5 % Hydrocortisone 2.5 % 08/08/2019 12:00:00 AM EST 1.0 {application} active Hydrocortisone 2.5 % eCW1 ([facility]) Hydrocortisone 0.025 MG/MG Topical Ointment Hydrocorti sone 2.5 % Hydrocortisone 2.5 % 08/08/2019 12:00:00 AM EST 1.0 {application} active Hydrocortisone 2.5 % eCW1 ([facility]) Hydrocortisone 0.025 MG/MG Topical Ointment Hydrocorti sone 2.5 % Hydrocortisone 2.5 % 08/08/2019 12:00:00 AM EST 1.0 {application} active Hydrocortisone 2.5 % eCW1 ([facility]) Hydrocortisone 0.025 MG/MG Topical Ointment Hydrocorti sone 2.5 % Hydrocortisone 2.5 % 08/08/2019 12:00:00 AM EST 1.0 {application} active Hydrocortisone 2.5 % eCW1 ([facility]) Hydrocortisone 0.025 MG/MG Topical Ointment Hydrocorti ricke 2.5 % Hydrocortisone 2.5 % 08/08/2019 12:00:00 AM EST 1.0 {application} active Hydrocortisone 2.5 % eCW1 ([facility]) Insurance Providers Payer name Policy type / Coverage type Policy ID Covered republican ID Covered republican's relationship to shah Policy Shah Plan Information [facility] [id number] SP [id number] [place] [id number] SP [id number] SELF PAY ONLY [id number] SP [id number] [facility] O [id number] S [id number] MEDICAID [id number] SP [id number] SELF PAY UNAVAILABLE SP UNAVAILA BLE RICCI [id number] SP [id number] [facility] [id number] SP [id number] SELF PAY ONLY - SP1 [id number] SP [id number] PENDING [employer] [id number] SP [id number] RICCI [id number] SP [id number] [facility] [id number] SP [id number] SELF PAY ONLY [id number] SP [id number] O UNAVAILABLE UNAVAILA BLE Problems, Conditions, and Diagnoses Code Display Name Description Problem Type Effective Dates Data Source(s) L73.9 [id number] Folliculitis Problem 05/18/2020 12:00:00 AM EST eCW1 ([facility]) R31.29 [id number] Other microscopic hematuria Problem 05/18/20 12:00:00 AM EST eCW1 ([facility]) E73.9 [id number] Lactose intolerance Problem 08/08/2019 12:00 :00 AM EST eCW1 ([facility]) G62.9 [id number] Neuropathy Problem 08/08/2019 12:00:00 AM ES T eCW1 ([facility]) G62.9 [id number] Neuropathy Problem 08/08/2019 12:00:00 AM ES T eCW1 ([facility]) E73.9 [id number] Lactose intolerance Problem 08/08/2019 12:00 :00 AM EST eCW1 ([facility]) Surgeries/Procedures Procedure Description Date Indications Data Source(s) HEPATITIS A VACCINE ADULT FOR INTRAMUSCULAR USE 2019 12:00:00 AM EST eCW1 ([facility]) Immunization: Flublok Quadrivalent (18 years & older) 0.5mL IM (Influenza) 05/10/2020 12:00:00 AM EST eCW1 ([facility]) Influenza immunization administered or previously received 08/08/2019 12:00:00 AM EST eCW1 ([facility]) Pneumococcal Adult 0.5mL (Pneumovax 23) 07/31/2019 12: 00:00 AM EST eCW1 ([facility]) IMMUNIZATION ADMIN 07/31/2019 12:00:00 AM EST eCW1 ([facility]) Meningococcal 0.5mL (Menveo Groups A,C,Y & W-135) 07/31/2019 12:00:00 AM EST eCW1 ([facility]) IMMUNIZATION ADMIN EACH ADD 07/31/2019 12:00:00 AM EST eCW1 ([facility]) Results ID Date Data Source HIV-1 RNA PCR QUANT [id number] 11/23/2019 10:58:16 AM EDT eCW1 ([facility]) Name Value Range Interpretation Code Description Data Leanne rce(s) Supporting Document(s) HIV 1 RNA [Units/volume] (viral load) in Serum or Plasma by Probe with amplification <20 HIV-1 RNA PCR QUANT 2 [id number] eCW1 ([facility]) ID Date Data Source CD4/CD8 RATIO PROFILE [id number] 11/23/2019 10:58:16 AM EDT eC W1 ([facility]) Name Value Range Interpretation Code Description Data Leanne rce(s) Supporting Document(s) Deprecated CD4 in Blood 1771 Abs CD4 Help er eCW1 ([facility]) 1708 Abs CD8 Suppres eCW1 ([facility]) 43.8 % CD8 Pos Lymph eCW1 ([facility]) 45.4 %CD4 Pos Lymphs eCW1 ([facility]) 1.04 CD4/CD8 Ratio eCW1 ([facility]) 3.98 RBC eCW1 (Replaced by [facility]) 13.7 HGB eCW1 (Replaced by [facility]) 7.6 WBC eCW1 (Replaced by [facility]) 102 MCV eCW1 (Replaced by [facility]) 33.9 MCHC eCW1 (Replaced by [facility]) 40.4 HCT eCW1 (Replaced by [facility]) 34.4 MCH eCW1 (Replaced by [facility]) 12.1 RDW eCW1 (Replaced by [facility]) 40 Neutrophils eCW1 ([facility]) 51 Lymphocytes eCW1 ([facility]) 206 Platelets eCW1 (Replaced by [facility]) 6 Monocytes eCW1 (Replaced by [facility]) 3 Eosinophils eCW1 ([facility]) 0 Basophils eCW1 ([facility]placed [facility]) 3.0 ABS Neutophils eCW1 ([facility]) 0.5 ABS Monocytes eCW1 ([facility]) 3.9 ABS Lymphs eCW1 ([facility]) 0.0 ABS Basophils eCW1 ([facility]) 0.2 ABS Eosinophils eCW1 ([facility]) ID Date Data Source SYPHILIS ANTIBODY (RPR SCREEN) 11/18/2019 10:13:30 AM EDT eC W1 ([facility]) Name Value Range Interpretation Code Description Data Leanne rce(s) Supporting Document(s) NONREACTIVE SYPHILIS eCW1 ([facility]) ID Date Data Source Comprehensive Metabolic Profile (CMP) 11/18/2019 10:13:30 AM EDT eCW1 ([facility]) Name Value Range Interpretation Code Description Data Leanne rce(s) Supporting Document(s) 65 GLUCOSE, FASTING eCW1 ([facility]) 11 BLOOD UREA NITROGEN eCW1 ([facility]) 0.92 CREATININE FOR GFR eCW1 ([facility]) > 60.0 GLOMERULAR FILTRATION RATE eCW 1 ([facility]) 139 SODIUM LEVEL eCW1 ([facility]) 8.8 CALCIUM LEVEL eCW1 ([facility]) 30 CARBON DIOXIDE LEVEL eCW1 ([facility]) 3.8 POTASSIUM SERUM eCW1 ([facility]) 105 CHLORIDE LEVEL eCW1 ([facility]) 0.4 BILIRUBIN,TOTAL eCW1 ([facility]) 24 ALT/SGPT eCW1 ([facility]placed by [facility]) 19 AST/SGOT eCW1 (Replaced by [facility]) 58 ALKALINE PHOSPHATASE eCW1 ([facility]) 3.9 ALBUMIN eCW1 ([facility]placed by [facility]) 7.9 TOTAL PROTEIN eCW1 ([facility]) 1.0 ALBUMIN/GLOBULIN RATIO eCW1 ([facility]) Procedure Social History Code Duration Value Status Description Data Source(s ) Smoking 05/18/2020 12:00:00 AM EST Current Smoker completed Curre nt Smoker eCW1 ([facility]) Smoking 05/18/2020 12:00:00 AM EST Current Smoker completed Curre nt Smoker eCW1 ([facility]) Smoking 05/18/2020 12:00:00 AM EST Current Smoker completed Curre nt Smoker eCW1 ([facility]) Smoking 11/17/2019 12:00:00 AM EDT Current Smoker completed Curre nt Smoker eCW1 ([facility]) Smoking 11/17/2019 12:00:00 AM EDT Current Smoker completed Curre nt Smoker eCW1 ([facility]) Smoking 11/17/2019 12:00:00 AM EDT Current Smoker completed Curre nt Smoker eCW1 ([facility]) Smoking 11/17/2019 12:00:00 AM EDT Current Smoker completed Curre nt Smoker eCW1 ([facility]) Smoking 11/17/2019 12:00:00 AM EDT Current Smoker completed Curre nt Smoker eCW1 ([facility]) Smoking 11/17/2019 12:00:00 AM EDT Current Smoker completed Curre nt Smoker eCW1 ([facility]) Smoking 11/17/2019 12:00:00 AM EDT Current Smoker completed Curre nt Smoker eCW1 ([facility]) Vital Signs ID Date Data Source UNK Name Value Range Interpretation Code Description Data Source(s) Diastolic blood pressure 64 mm[Hg] 64 mm[Hg] eCW1 ([facility]) Systolic blood pressure 100 mm[Hg] 100 mm[Hg] e CW1 ([facility]) Body temperature 97.9 [degF] 97.9 [degF] eCW1 ( [facility]) Respiratory rate 16 /min 16 /min eCW1 ([facility]) Heart rate 70 /min 70 /min eCW1 ([facility]) Body mass index (BMI) [Ratio] 23.24 kg/m2 23.24 kg/m2 W1 ([facility]) Body height 74 [in_i] 74 [in_i] eCW1 ([facility]) Body weight 181 [lb_av] 181 [lb_av] eCW1 ([facility]) Diastolic blood pressure 52 mm[Hg] 52 mm[Hg] eCW1 ([facility]) Systolic blood pressure 98 mm[Hg] 98 mm[Hg] e CW1 ([facility]) Body temperature 97.9 [degF] 97.9 [degF] eCW1 ( [facility]) Respiratory rate 16 /min 16 /min eCW1 ([facility]) Heart rate 81 /min 81 /min eCW1 ([facility]) Body mass index (BMI) [Ratio] 22.98 kg/m2 22.98 kg/m2 W1 ([facility]) Body height 74 [in_i] 74 [in_i] eCW1 ([facility]) Body weight 179 [lb_av] 179 [lb_av] eCW1 ([facility]) Systolic blood pressure 90 mm[Hg] 90 mm[Hg] e CW1 ([facility]) Body temperature 98.2 [degF] 98.2 [degF] eCW1 ( [facility]) Respiratory rate 18 /min 18 /min eCW1 ([facility]) Heart rate 82 /min 82 /min eCW1 ([facility]) Body mass index (BMI) [Ratio] 21.82 kg/m2 21.82 kg/m2 eCW1 ([facility]) Body height 74 [in_us] 74 [in_us] eCW1 ([facility]) Body weight Measured 170 [lb_av] 170 [lb_av] eC W1 ([facility]) Diastolic blood pressure 66 mm[Hg] 66 mm[Hg] eCW1 ([facility]) Diastolic blood pressure 64 mm[Hg] 64 mm[Hg] eCW1 ([facility]) Systolic blood pressure 124 mm[Hg] 124 mm[Hg] e CW1 ([facility]) Body temperature 97.2 [degF] 97.2 [degF] eCW1 ( [facility]) Respiratory rate 18 /min 18 /min eCW1 ([facility]) Heart rate 104 /min 104 /min eCW1 ([facility]) Body mass index (BMI) [Ratio] 22.80 kg/m2 22.80 kg/m2 eCW1 ([facility]) Body height 74 [in_us] 74 [in_us] eCW1 ([facility]) Body weight Measured 177.6 [lb_av] 177.6 [lb_av ] eCW1 ([facility]) Patient Treatment Plan of Care Planned Activity Planned Date Details Description Data Source (s) Clindamycin 10 MG/ML Topical Solution 05/18/2020 12:00:00 AM EST eCW1 ([facility]) Clindamycin 10 MG/ML Topical Solution 05/18/2020 12:00:00 AM EST eCW1 ([facility]) Clindamycin 10 MG/ML Topical Solution 05/18/2020 12:00:00 AM EST eCW1 ([facility]) Ibuprofen 600 MG Oral Tablet 11/17/2019 12:00:00 AM EDT eCW1 ([facility]) Ibuprofen 600 MG Oral Tablet 11/17/2019 12:00:00 AM EDT eCW1 ([facility]) Ibuprofen 600 MG Oral Tablet 11/17/2019 12:00:00 AM EDT eCW1 ([facility]) Ibuprofen 600 MG Oral Tablet 11/17/2019 12:00:00 AM EDT eCW1 ([facility]) Ibuprofen 600 MG Oral Tablet 11/17/2019 12:00:00 AM EDT eCW1 ([facility]) Ibuprofen 600 MG Oral Tablet 11/17/2019 12:00:00 AM EDT eCW1 ([facility]) Ibuprofen 600 MG Oral Tablet 11/17/2019 12:00:00 AM EDT eCW1 ([facility]) Hydrocortisone 0.025 MG/MG Topical Ointment 08/08/2019 12:00:00 AM EST eCW1 ([facility]) gabapentin 600 MG Oral Tablet 08/08/2019 12:00:00 AM EST eCW1 ([facility])
[2020-07-27] MEDS ORDERED: GABA600T4 PO (21:34)
[2020-07-27] MEDS ORDERED: PATIENT COMMENT (21:36)
[2020-07-27 21:45] VITALS: BP 121/76
[2020-07-27] MEDS: traZODone 50 MG TAB PO PRN (22:10)
[2020-07-27] MEDS: OLANZapine ORAL DISINTEGRATING TAB 5MG PO PRN (22:31)
[2020-07-28] MEDS ORDERED: OLANZapine ORAL DISINTEGRATING TAB 5MG PO ONE ×2 (01:30→23:30)
[2020-07-28] MEDS: OLANZapine ORAL DISINTEGRATING TAB 5MG PO PRN (04:59)
[2020-07-28] MEDS: GABAPENTIN 300 MG CAP PO SCH ×2 (09:00→21:17)
--- NOTE | 2020-07-28 12:05 | HPEPDOC ---
General Date of Admission Jul 27, 2020 at 19:46 Date of Service: Jul 28, 2020 Chief Complaint The patient is a 35-year-old male admitted with a reason for visit of Unspecified Psychotic D/O, Cannabis D/O. Source: Patient, RN/MD History of Present Illness 35 year old male with depression, HIV infection, polysubstance abuse was [facility] to [facility] for non specified psychotic disorder. He is being medically examined today. On presentation to ED he was acting bizarrely with repetitive actions then staring into space was unable to have a coherent conversation. His Utox was positive for marijuana. He was giggling and pacing and jogging in the r oom. Today he is more lucid and was able to have a conversation with me. He denied any specific complaints. Home Medications Scheduled Bictegrav/Emtricit/Tenofov Ala (Biktarvy 50-200-25 mg Tablet) 1 Each Tablet, 1 TAB PO DAILY, (Reported) Gabapentin (Gabapentin) 600 Mg Tablet, 600 MG PO BID, (Reported) Miscellaneous Medications [Patient Comment] , (Reported) MED REC COMPLETED VIA PHONE CALL TO SIGNIFICANT OTHER Allergies Coded Allergies: No Known Allergies (Unverified , 02/25/17) Past Medical History Medical History Depression with Suicidal attempt by intentional multidrug overdose Polysubstance use disorder HIV infection Prediabetes Shingles in right shoulder LACTOSE INTOLERANCE SPRING ALLERGIES Family History FATHER: ALIVE 55 YRS, MENTAL HEALTH MOTHER: , 4 GUNSHOT WOUNDS 1/2 SISTER-MENTAL HEALTH ISSUES. Social History * Smoker: current smoker Alcohol: heavy Drugs: cocaine, marijuana, other (methamphetamine) A-FIB/CHADSVASC A-FIB History Current/History of A-Fib/PAF?: No Review of Systems Constitutional: Denies: Chills, Fever, Night Sweats Eyes: Denies: Pain, Vision change ENT: Denies: Head Aches, Ear Pain, Dysphagia Skin: Denies: Rash, Lesions, Breakdown Pulmonary: Denies: Dyspnea, Cough Cardiovascular: Denies: Chest Pain, Palpitations, Orthopnea, Paroxysmal Noc. Dyspnea, Lt Headedness Gastrointestinal: Denies: Nausea, Vomiting, Abdominal Pain, Diarrhea Genitourinary: Denies: Dysuria, Frequency, Incontinence, Retention Hematologic: Denies: Bruising, Bleeding Excessively Musculoskeletal: Denies: Neck Pain, Back Pain, Joint Pain, Muscle Pain, Spasms Neurological: Denies: Weakness, Numbness, Change in speech, Confusion Psych: Reports: Mood Normal; Denies: Depression, Memory Issues Physical Examination General Exam: Positive: Alert, Cooperative, No Acute Distress Eye Exam: Positive: PERRLA, Conjunctiva & lids normal, EOMI; Negative: Sclera icteric ENT Exam: Positive: Atraumatic, Mucous membr. moist/pink, Pharynx Normal Chest Exam: Positive: Clear to auscultation, Normal air movement Heart Exam: Positive: Rate Normal, Regular Rhythm, Normal S1, Normal S2; Negative: Murmurs, Rubs Abdomen Exam: Positive: Normal bowel sounds, Soft; Negative: Tenderness, Hepatospenomegaly Skin Exam: Positive: Nl turgor and temperature; Negative: Breakdown, Lesion Psych Exam: Positive: Oriented x 3 Vital Signs Vital Signs Date Time Temp Pulse Resp B/P (MAP) Pulse Ox O2 Delivery O2 Flow Rate FiO2 07/27/20 21:45 98.1 62 16 121/76 (91) 100 Room Air Laboratory Data Labs 24H Laboratory Tests 2 07/27/20 12:34: Coronavirus (COVID-19)(PCR) NEGATIVE 07/27/20 13:25: Urine Opiates Screen NEGATIVE, Urine Methadone Screen NEGATIVE, Urine Barbiturates Screen NEGATIVE, Urine Phencyclidine Screen NEGATIVE, Urine Amphetamines Screen NEGATIVE, Urine Benzodiazepines Screen NEGATIVE, Urine Cocaine Metabolite Screen NEGATIVE, Urine Cannabinoids Screen POSITIVEH Assessment/Plan 35 year old male with depression, HIV infection, polysubstance abuse was admitted to [facility] for non specified psychotic disorder. He is being medically examined today. Psychotic disorder ? substance abuse disorder as per psychiatry Transaminitis ? resolving Rhabdomyolysis will repeat labs now. If remains abnormal will get liver US. Hypokalemia will replace HIV continue Bictarvy daily H/O shingles on right shoulder with post herpetic neuralgia continue gabapentin. Low TSH will chck Free t3 and f t4 Plan / VTE VTE Prophylaxis Ordered?: No (freely ambulatory) SHAYE ELY MD Jul 28, 2020 11:26
[2020-07-28] MEDS ORDERED: POTASSIUM CHLORIDE 10 MEQ SR TABLET PO ONE (13:00)
[2020-07-28] MEDS: OLANZapine 5 MG TAB PO SCH ×2 (13:00→21:17)
[2020-07-28 14:40] LABS: BASO % 0.4 % (0.0-1.0); EOS # 0.7 10^3/uL (0.0-0.5); EOS % 6.6 % (0.0-3.0); HEMATOCRIT 38.8 % (42.0-52.0); HEMOGLOBIN 13.1 g/dl (13.5-17.5); LYMPH # 5.8 10^3/uL (1.5-5.0); MEAN CORPUSCULAR HEMOGLOBIN 33.5 pg (27.0-33.0); MEAN CORPUSCULAR HGB CONC 33.8 g/dl (32.0-36.5); MEAN CORPUSCULAR VOLUME 99.2 fl (80.0-96.0); MONO # 0.8 10^3/uL (0.0-0.8); MONO % 7.7 % (0.0-5.0); NEUTROPHILS # 3.2 10^3/uL (1.5-8.5); NEUTROPHILS % 30.2 % (36.0-66.0); PLATELET COUNT, AUTOMATED 255 10^3/uL (150-450); RED BLOOD COUNT 3.91 10^6/uL (4.30-6.10)
[2020-07-28 14:41] LABS: WHITE BLOOD COUNT 10.5 10^3/uL (4.0-10.0)
[2020-07-28 15:17] LABS: ALBUMIN 4.3 GM/DL (3.2-5.2); ALT/SGPT 593 U/L (12-78); BILIRUBIN,TOTAL 0.6 MG/DL (0.2-1.0); BLOOD UREA NITROGEN 10 MG/DL (7-18); CALCIUM LEVEL 8.8 MG/DL (8.5-10.1); CARBON DIOXIDE LEVEL 20 MEQ/L (21-32); CHLORIDE LEVEL 106 MEQ/L (98-107); CPK CREATINE PHOSPHOKINASE 1582 U/L (39-308); CREATININE FOR GFR 1.23 MG/DL (0.70-1.30); FREE T3 3.3 PG/ML (2.2-4.0); FREE T4 1.07 NG/DL (0.76-1.46); GLOMERULAR FILTRATION RATE > 60.0 (>60); GLUCOSE, FASTING 113 MG/DL (70-100); POTASSIUM SERUM 3.2 MEQ/L (3.5-5.1); SODIUM LEVEL 143 MEQ/L (136-145); TOTAL PROTEIN 8.2 GM/DL (6.4-8.2)
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
[2020-07-28] MEDS: traZODone 50 MG TAB PO PRN (21:17)
[2020-07-29] MEDS ORDERED: diphenhydrAMINE 50MG CAP PO ONE (02:15)
[2020-07-29] MEDS ORDERED: LORazepam 2 MG TAB PO ONE (02:15)
[2020-07-29] MEDS: GABAPENTIN 300 MG CAP PO SCH ×2 (08:51→20:05)
[2020-07-29] MEDS: OLANZapine 5 MG TAB PO SCH (08:51)
[2020-07-29] MEDS ORDERED: NON-FORMULARY COMPOUNDED MEDICATION PO SCH (09:00)
[2020-07-29] MEDS ORDERED: BENZTROPINE 0.5 MG TAB PO PRN (12:45)
[2020-07-29 16:20] VITALS: BP 136/85
--- NOTE | 2020-07-29 16:47 | MHIPNPDOC ---
[facility] Progress Note Progress Note DATE OF SERVICE: 07/29/20 HISTORY: Patient is a 35 year old Single, Unemployed, Domiciled Male who was brought to the ED for delusional and bizarre thinking. His girlfriend called the police because he was screaming and was bizarre and she could not calm him down. Once in the ED, patient continued to be bizarre, observed shadow boxing, talking to internal stimuli, rolling across the bed in the ED, having bizarre and accentuated movements. He stated in his interview with this provider that he was having a "nervous breakdown due to the building, that the landlord wanted me off his property. He needs me to get into a hotel, his building is making me sick. We can't breathe, there are children and they don't need to listen to my business" Patient was nonsensical and bizarre in his statements but calm and cooperative. Reports that his muscles are tightening up like a ball and thinks he needs anger management classes. VITAL SIGNS: See below. CURRENT MEDICATIONS: See below. MENTAL STATUS EXAMINATION: Patient is a 35 year old Single, Unemployed, Domiciled Male who was brought to the ED for delusional and bizarre thinking. Speech: Is fluid, conversant, normal rate, tone and volume Language skills are intact Thought processes including: disorganized and scattered Thought content: denies depression and anxiety. Denies suicidal/homicidal ideation, planning or intent. Abstract reasoning, and computation: fair Description of associations: denies, none observed Description of abnormal or psychotic thoughts: patient is disorganized in his thought processes, making bizarre statements that are nonsensical Judgment: impaired Insight: impaired Orientation: alert and oriented to person, place, time and situation Recent and remote memory: intact Attention span and concentration: good Language: expansive Fund of knowledge: average Mood: Euphoric Mood Affect: reactive DIAGNOSES: Unspecified Psychotic Disorder ASSESSMENT: Patient continues to be disorganized. While he is calm and cooperative he continued to make bizarre statements in the interview. He has difficulty answering questions appropriately. Patient is requesting to be discharged, but he remains psychotic and is not appropriate for discharge as he is not stable. He remains on 1:1 observations. MANAGEMENT PLAN: Continue all medications, Zyprexa increased to 10 mg BID. TIME SPENT: 25 minutes. Vital Signs Vital Signs Date Time Temp Pulse Resp B/P (MAP) Pulse Ox O2 Delivery O2 Flow Rate FiO2 07/29/20 16:20 98.7 99 18 136/85 (102) 100 Room Air Current Medications Current Medications Medications (Trade) Dose Ordered Sig/Tanisha Route PRN Reason Start Time Stop Time Status Last Admin Dose Admin Acetaminophen (Tylenol Tab) 650 mg Q6HP PRN PO HEADACHE or DISCOMFORT 07/27/20 20:00 07/28/20 22:47 Al Hydrox/Mg Hydrox/Simethicone (Mylanta) 30 ml Q4HP PRN PO HEARTBURN/INDIGESTION 07/27/20 20:00 Benztropine Mesylate (Cogentin) 0.5 mg BIDP PRN PO For EPS Symptoms 07/29/20 12:45 Gabapentin (Neurontin) 600 mg BID PO 07/28/20 09:00 07/29/20 08:51 Home Med (Med Rec Complete!) ASDIRECTED XX 07/27/20 21:45 07/27/20 21:37 DC Magnesium Hydroxide (Milk Of Magnesia) 30 ml DAILYPRN PRN PO CONSTIPATION 07/27/20 20:00 Miscellaneous (Unresolved Patient Own Med Order) SEE LABEL COMMENTS DAILY XX 07/28/20 09:00 Non-Formulary Medication Biktarvy 1 tab daily DAILY PO 07/29/20 09:00 UNV Olanzapine (ZyPREXA ZYDIS) 5 mg Q6HP PRN PO agitation/anxiety 07/27/20 20:00 07/28/20 04:59 Olanzapine (ZyPREXA) 5 mg BID PO 07/28/20 13:00 07/29/20 12:42 DC 07/29/20 08:51 Olanzapine (ZyPREXA) 10 mg BID PO 07/29/20 21:00 Trazodone HCl (Desyrel) 50 mg QHSP PRN PO INSOMNIA 07/27/20 20:00 07/28/20 21:17 Allergies Coded Allergies: No Known Allergies (Unverified , 02/25/17) KEV SMITH NP Jul 29, 2020 16:47
[2020-07-29] MEDS: OLANZapine 10 MG TAB PO SCH (20:04)
[2020-07-29] MEDS: traZODone 50 MG TAB PO PRN (22:02)
[2020-07-30] MEDS: OLANZapine ORAL DISINTEGRATING TAB 5MG PO PRN (02:40)
[2020-07-30 06:45] VITALS: BP 147/60
[2020-07-30] MEDS: OLANZapine 10 MG TAB PO SCH (08:26)
[2020-07-30] MEDS: GABAPENTIN 300 MG CAP PO SCH (08:26)
[2020-07-30] MEDS ORDERED: BENZ0.5T23 PO (09:57)
[2020-07-30] MEDS ORDERED: OLAN10TA2 PO (09:57)
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
--- NOTE | 2020-07-30 14:04 | IPNPDOC ---
Text Note Date of Service The patient was seen on 07/30/20. NOTE abnormal LFTs. Hepatitis profile added on to last labs. Patient follows with Dr Greer. Discussed with her and she will follow up on the labs. Likely acute hepatitis C. VS,Fishbone, I+O VS, Fishbone, I+O Vital Signs Date Time Temp Pulse Resp B/P (MAP) Pulse Ox O2 Delivery O2 Flow Rate FiO2 07/30/20 06:45 98.1 78 20 147/60 (89) 98 Room Air SHAYE ELY MD Jul 30, 2020 14:04
[2020-07-30 14:42] LABS: HEPATITIS B SURFACE ANTIGEN NEGATIVE (NEGATIVE)
[2020-07-30 15:09] LABS: HEPATITIS C VIRUS ABY INDEX 0.1 INDEX (<0.8)
[2020-07-30 15:10] LABS: HEPATITIS B CORE ANTIBODY IGM NEGATIVE (NEGATIVE)
[2020-07-30 15:12] LABS: HEPATITIS A ANTIBODY IGM NEGATIVE (NEGATIVE)
== END 2020-07-30 12:33 | disposition home or self-care (01) | DRG 754 ==
LOC: M ED 09:27 → M ED INP 19:46 → M PSY 21:40
PROVIDERS: ADMIT Psychiatry & Neurology Psychiatry; ATTEND Psychiatry & Neurology Psychiatry
DX: F32.9 Major depressive disorder, single episode, unspecified (principal); B20 Human immunodeficiency virus [HIV] disease; B02.29 Other postherpetic nervous system involvement; Z79.899 Other long term (current) drug therapy; F12.90 Cannabis use, unspecified, uncomplicated; E87.6 Hypokalemia

== ENCOUNTER → 2020-08-09 | Outpatient (REF) | payer OTHER ==
[~2020-08-09] MED LIST changes: +BENZ0.5T23 PO; +OLAN10TA2 PO; +PATIENT COMMENT
[2020-08-09 18:14] LABS: ALBUMIN 3.6 GM/DL (3.2-5.2); ALT/SGPT 593 U/L (12-78); BILIRUBIN,TOTAL 0.3 MG/DL (0.2-1.0); BLOOD UREA NITROGEN 9 MG/DL (7-18); CALCIUM LEVEL 9.4 MG/DL (8.5-10.1); CARBON DIOXIDE LEVEL 33 MEQ/L (21-32); CHLORIDE LEVEL 104 MEQ/L (98-107); CREATININE FOR GFR 1.17 MG/DL (0.70-1.30); GLOMERULAR FILTRATION RATE > 60.0 (>60); GLUCOSE, FASTING 85 MG/DL (70-100); POTASSIUM SERUM 4.4 MEQ/L (3.5-5.1); SODIUM LEVEL 140 MEQ/L (136-145); TOTAL PROTEIN 7.4 GM/DL (6.4-8.2)
[2020-08-12 03:07] LABS: %CD4 Pos Lymphs 47.4 % (30.8-58.5); ABS Eosinophils 0.4 x10E3/uL (0.0-0.4); ABS Lymphs 3.8 x10E3/uL (0.7-3.1); ABS Monocytes 0.8 x10E3/uL (0.1-0.9); ABS Neutophils 2.3 x10E3/uL (1.4-7.0); Abs CD4 Helper 1801 /uL (359-1519); Abs CD8 Suppres 1634 /uL (109-897); Eosinophils 6 % (Not Estab.); HCT 39.5 % (37.5-51.0); HGB 13.2 g/dL (13.0-17.7); HIV-1 RNA PCR QUANT 2 LC550285 <20 copies/mL (.); Immature Grans 0 % (Not Estab.); Lymphocytes 50 % (Not Estab.); MCH 33.8 pg (26.6-33.0); MCHC 33.4 g/dL (31.5-35.7); MCV 101 fL (79-97); Monocytes 11 % (Not Estab.); Neutrophils 32 % (Not Estab.); Platelets 178 x10E3/uL (150-450); RDW 13.1 % (11.6-15.4); WBC 7.4 x10E3/uL (3.4-10.8)
== END ==
LOC: M SFHCPLAZ 14:15
PROVIDERS: ATTEND Internal Medicine Infectious Disease
DX: B20 Human immunodeficiency virus [HIV] disease (principal)

== ENCOUNTER 2020-09-04 04:33 | Emergency (ER) | payer OTHER ==
[~2020-09-04] VITALS: Ht 185.4 cm; Wt 81.8 kg
[2020-09-04] MEDS ORDERED: diphenhydrAMINE 50MG/ML VIAL (J1200) IM ONE (05:05)
[2020-09-04] MEDS ORDERED: LORazepam 2 MG/ML VIAL IM ONE (05:05)
[2020-09-04] MEDS ORDERED: HALOPERIDOL 5MG/ML VIAL (J1630 PER 1) IM ONE (05:05)
[2020-09-04] MEDS ORDERED: LORazepam 2 MG/ML VIAL As Ordered ONE (05:10)
[2020-09-04 05:12] LABS: HEMATOCRIT 39.6 % (42.0-52.0); HEMOGLOBIN 13.7 g/dl (13.5-17.5); MEAN CORPUSCULAR HEMOGLOBIN 33.7 pg (27.0-33.0); MEAN CORPUSCULAR HGB CONC 34.6 g/dl (32.0-36.5); MEAN CORPUSCULAR VOLUME 97.5 fl (80.0-96.0); PLATELET COUNT, AUTOMATED 247 10^3/uL (150-450); RED BLOOD COUNT 4.06 10^6/uL (4.30-6.10); WHITE BLOOD COUNT 18.6 10^3/uL (4.0-10.0)
[2020-09-04 05:54] LABS: ACETAMINOPHEN LEVEL < 2.0 UG/ML (10.0-30.0); ALBUMIN 4.4 GM/DL (3.2-5.2); ALT/SGPT 107 U/L (12-78); BILIRUBIN,DIRECT 0.5 MG/DL (0.0-0.2); BILIRUBIN,TOTAL 1.3 MG/DL (0.2-1.0); BLOOD UREA NITROGEN 22 MG/DL (7-18); CALCIUM LEVEL 9.3 MG/DL (8.5-10.1); CARBON DIOXIDE LEVEL 22 MEQ/L (21-32); CHLORIDE LEVEL 103 MEQ/L (98-107); CREATININE FOR GFR 1.06 MG/DL (0.70-1.30); ETHYL ALCOHOL (ETHANOL) < 0.003 % (0.000-0.010); GLOMERULAR FILTRATION RATE > 60.0 (>60); GLUCOSE, FASTING 77 MG/DL (70-100); POTASSIUM SERUM 3.8 MEQ/L (3.5-5.1); SALICYLATE LEVEL 4.2 MG/DL (5.0-30.0); SODIUM LEVEL 136 MEQ/L (136-145); THYROID STIMULATING HORMONE 0.168 uIU/ML (0.358-3.740); TOTAL PROTEIN 8.7 GM/DL (6.4-8.2)
[2020-09-04 08:08] LABS: AMPHETAMINES LEVEL URINE POSITIVE (NEGATIVE); BARBITURATES URINE NEGATIVE (NEGATIVE); BENZODIAZEPINES URINE NEGATIVE (NEGATIVE); CANNABINOIDS URINE POSITIVE (NEGATIVE); COCAINE METABOLITE URINE NEGATIVE (NEGATIVE); METHADONE URINE NEGATIVE (NEGATIVE); OPIATES URINE NEGATIVE (NEGATIVE); PHENCYCLIDINE URINE NEGATIVE (NEGATIVE)
--- NOTE | 2020-09-04 18:09 | REPVR ---
PROCEDURE INFORMATION: Exam: CT Head Without Contrast Exam date and time: 09/04/2020 5:55 PM Age: 35 years old Clinical indication: Other: Hematoma TECHNIQUE: Imaging protocol: Computed tomography of the head without contrast. Axial and coronal reformatted images were created and reviewed. Radiation optimization: All CT scans at this facility use at least one of these dose optimization techniques: automated exposure control; mA and/or kV adjustment per patient size (includes targeted exams where dose is matched to clinical indication); or iterative reconstruction. COMPARISON: CT Head without contrast 07/30/2016 7:06 AM FINDINGS: Brain: No CT evidence of acute intracranial hemorrhage or acute territorial infarction. No significant mass effect or midline shift. Basal cisterns patent. Cerebral ventricles: Normal in size and configuration. Bones/joints: No acute osseous abnormality. Paranasal sinuses: Minimal ethmoid mucosal thickening. Mastoid air cells: Grossly unremarkable. Soft tissues: Left posterior parietal scalp hematoma. IMPRESSION: 1. No CT evidence of acute intracranial pathology. 2. Additional findings, as above. Electronically signed by: Riky Fitzgerald On 09/04/2020 18:09:31 PM
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
[2020-09-04 18:22] LABS: BASO % 0.3 % (0.0-1.0); EOS # 0.2 10^3/uL (0.0-0.5); EOS % 1.8 % (0.0-3.0); HEMOGLOBIN 14.5 g/dl (13.5-17.5); LYMPH # 4.4 10^3/uL (1.5-5.0); LYMPH % 38.9 % (24.0-44.0); MEAN CORPUSCULAR HEMOGLOBIN 33.7 pg (27.0-33.0); MEAN CORPUSCULAR HGB CONC 33.7 g/dl (32.0-36.5); MONO # 0.9 10^3/uL (0.0-0.8); MONO % 7.8 % (2.0-8.0); NEUTROPHILS # 5.8 10^3/uL (1.5-8.5); NEUTROPHILS % 50.8 % (36.0-66.0); PLATELET COUNT, AUTOMATED 220 10^3/uL (150-450); WHITE BLOOD COUNT 11.3 10^3/uL (4.0-10.0)
[2020-09-05 12:47] VITALS: BP 121/69
== END 2020-09-05 12:49 | disposition home or self-care (01) ==
LOC: M ED 04:33
DX: F19.150 Other psychoactive substance abuse with psychoactive substance-induced psychotic disorder with delusions (principal)
CPT/HCPCS: 51701; 70450; 72125; 80048; 80076; 80143; 80307; 82077; 84443; 85025; 85027; 96372; 99285; J1200; J1630; J2060

== ENCOUNTER 2020-11-06 03:42 | Emergency (ER) | payer OTHER ==
[2020-11-06 04:28] LABS: BASO % 0.5 % (0.0-1.0); EOS # 0.3 10^3/uL (0.0-0.5); EOS % 3.5 % (0.0-3.0); HEMATOCRIT 35.3 % (42.0-52.0); HEMOGLOBIN 11.9 g/dl (13.5-17.5); LYMPH # 2.5 10^3/uL (1.5-5.0); LYMPH % 31.9 % (24.0-44.0); MEAN CORPUSCULAR HEMOGLOBIN 34.4 pg (27.0-33.0); MEAN CORPUSCULAR HGB CONC 33.7 g/dl (32.0-36.5); MONO # 0.5 10^3/uL (0.0-0.8); MONO % 6.3 % (2.0-8.0); NEUTROPHILS # 4.6 10^3/uL (1.5-8.5); NEUTROPHILS % 57.4 % (36.0-66.0); PLATELET COUNT, AUTOMATED 177 10^3/uL (150-450); RED BLOOD COUNT 3.46 10^6/uL (4.30-6.10); WHITE BLOOD COUNT 7.9 10^3/uL (4.0-10.0)
[2020-11-06 04:55] LABS: ACETAMINOPHEN LEVEL < 2.0 UG/ML (10.0-30.0); ALBUMIN 3.7 GM/DL (3.2-5.2); ALT/SGPT 112 U/L (12-78); BILIRUBIN,DIRECT 0.1 MG/DL (0.0-0.2); BILIRUBIN,TOTAL 0.5 MG/DL (0.2-1.0); BLOOD UREA NITROGEN 13 MG/DL (7-18); CALCIUM LEVEL 8.6 MG/DL (8.5-10.1); CARBON DIOXIDE LEVEL 27 MEQ/L (21-32); CHLORIDE LEVEL 110 MEQ/L (98-107); CREATININE FOR GFR 0.96 MG/DL (0.70-1.30); ETHYL ALCOHOL (ETHANOL) < 0.003 % (0.000-0.010); GLOMERULAR FILTRATION RATE > 60.0 (>60); GLUCOSE, FASTING 89 MG/DL (70-100); POTASSIUM SERUM 3.7 MEQ/L (3.5-5.1); SODIUM LEVEL 139 MEQ/L (136-145); TOTAL PROTEIN 7.3 GM/DL (6.4-8.2)
[2020-11-06 07:01] VITALS: BP 110/63
== END 2020-11-06 07:36 | disposition home or self-care (01) ==
LOC: M ED 03:42
DX: F16.129 Hallucinogen abuse with intoxication, unspecified (principal); Z79.899 Other long term (current) drug therapy

== ENCOUNTER 2020-11-23 23:01 | Emergency (ER) | payer OTHER ==
[~2020-11-23] VITALS: Ht 190.5 cm; Wt 76.1 kg
[2020-11-23 23:01] VITALS: BP 141/82
== END 2020-11-24 01:44 | disposition left against medical advice (07) ==
LOC: M ED 23:01
DX: Z53.21 Procedure and treatment not carried out due to patient leaving prior to being seen by health care provider (principal)

== ENCOUNTER 2020-11-28 22:25 | Emergency (ER) | payer OTHER ==
[~2020-11-28] VITALS: Ht 190.5 cm; Wt 75.0 kg
[2020-11-29] MEDS ORDERED: MED REC COMMENT (01:01)
[2020-11-29 01:10] LABS: HEMATOCRIT 36.8 % (42.0-52.0); HEMOGLOBIN 12.3 g/dl (13.5-17.5); MEAN CORPUSCULAR HEMOGLOBIN 33.9 pg (27.0-33.0); MEAN CORPUSCULAR HGB CONC 33.4 g/dl (32.0-36.5); MEAN CORPUSCULAR VOLUME 101.4 fl (80.0-96.0); PLATELET COUNT, AUTOMATED 170 10^3/uL (150-450); RED BLOOD COUNT 3.63 10^6/uL (4.30-6.10); WHITE BLOOD COUNT 8.3 10^3/uL (4.0-10.0)
[2020-11-29 01:49] LABS: ACETAMINOPHEN LEVEL < 2.0 UG/ML (10.0-30.0); ALBUMIN 3.5 GM/DL (3.2-5.2); ALT/SGPT 99 U/L (12-78); BILIRUBIN,DIRECT 0.2 MG/DL (0.0-0.2); BILIRUBIN,TOTAL 0.5 MG/DL (0.2-1.0); BLOOD UREA NITROGEN 15 MG/DL (7-18); CALCIUM LEVEL 8.5 MG/DL (8.5-10.1); CARBON DIOXIDE LEVEL 29 MEQ/L (21-32); CHLORIDE LEVEL 106 MEQ/L (98-107); CREATININE FOR GFR 0.99 MG/DL (0.70-1.30); ETHYL ALCOHOL (ETHANOL) < 0.003 % (0.000-0.010); GLOMERULAR FILTRATION RATE > 60.0 (>60); GLUCOSE, FASTING 87 MG/DL (70-100); POTASSIUM SERUM 4.2 MEQ/L (3.5-5.1); SALICYLATE LEVEL 4.4 MG/DL (5.0-30.0); SODIUM LEVEL 140 MEQ/L (136-145); THYROID STIMULATING HORMONE 0.203 uIU/ML (0.358-3.740); TOTAL PROTEIN 7.2 GM/DL (6.4-8.2)
[2020-11-29 03:26] LABS: AMPHETAMINES LEVEL URINE NEGATIVE (NEGATIVE); BARBITURATES URINE NEGATIVE (NEGATIVE); BENZODIAZEPINES URINE NEGATIVE (NEGATIVE); CANNABINOIDS URINE POSITIVE (NEGATIVE); COCAINE METABOLITE URINE NEGATIVE (NEGATIVE); METHADONE URINE NEGATIVE (NEGATIVE); OPIATES URINE NEGATIVE (NEGATIVE); PHENCYCLIDINE URINE NEGATIVE (NEGATIVE)
[2020-11-29 06:05] VITALS: BP 117/54
[2020-11-29] MEDS ORDERED: GABAPENTIN 300 MG CAP PO ONE (08:50)
== END 2020-11-29 13:21 | disposition home or self-care (01) ==
LOC: M ED 22:25
DX: F29 Unspecified psychosis not due to a substance or known physiological condition (principal); Z59.0 Homelessness; F19.10 Other psychoactive substance abuse, uncomplicated; F12.10 Cannabis abuse, uncomplicated; F17.200 Nicotine dependence, unspecified, uncomplicated; Z79.899 Other long term (current) drug therapy

== ENCOUNTER 2020-12-11 14:34 | Emergency (ER) | payer OTHER ==
[~2020-12-11] VITALS: Ht 190.5 cm; Wt 78.1 kg
[2020-12-11 14:35] VITALS: BP 129/69
== END 2020-12-11 17:16 | disposition home or self-care (01) ==
LOC: M ED 14:34
DX: Z59.0 Homelessness (principal); Z79.899 Other long term (current) drug therapy

== ENCOUNTER → 2021-02-15 | Outpatient (CLI) | payer OTHER ==
[~2021-02-15] MED LIST changes: -OLAN10TA2 PO; +OLAN1TAB20 PO
[2021-02-15 15:52] LABS: ALBUMIN 3.8 GM/DL (3.2-5.2); ALT/SGPT 134 U/L (12-78); BILIRUBIN,TOTAL 0.6 MG/DL (0.2-1.0); BLOOD UREA NITROGEN 12 MG/DL (7-18); CARBON DIOXIDE LEVEL 29 MEQ/L (21-32); CHLORIDE LEVEL 105 MEQ/L (98-107); CREATININE FOR GFR 0.74 MG/DL (0.70-1.30); FERRITIN 228 NG/ML (26-388); FREE T4 0.95 NG/DL (0.76-1.46); GLOMERULAR FILTRATION RATE > 60.0 (>60); GLUCOSE, FASTING 88 MG/DL (70-100); IRON (FE) 100 UG/DL (65-175); POTASSIUM SERUM 4.3 MEQ/L (3.5-5.1); SODIUM LEVEL 139 MEQ/L (136-145); THYROID STIMULATING HORMONE 0.363 uIU/ML (0.358-3.740); TOTAL IRON BINDING CAPACITY 371 UG/DL (250-450); TOTAL PROTEIN 7.6 GM/DL (6.4-8.2)
[2021-02-15 15:58] LABS: HEPATITIS C VIRUS ABY INDEX > 11.0 INDEX (<0.8)
[2021-02-24 10:09] LABS: % CD8 Pos Lymph 45.1 % (12.0-35.5); %CD4 Pos Lymphs 42.4 % (30.8-58.5); ABS Eosinophils 0.4 x10E3/uL (0.0-0.4); ABS Lymphs 3.5 x10E3/uL (0.7-3.1); ABS Monocytes 0.6 x10E3/uL (0.1-0.9); ABS Neutophils 2.8 x10E3/uL (1.4-7.0); ANTI-MITOCHONDRIAL ANTIBODY <20.0 Units (0.0-20.0); ANTI-SMOOTH MUSCLE ANTIBODY 22 Units (0-19); ANTINUCLEAR ANTIBODIES DIRECT Negative (Negative); Abs CD4 Helper 1484 /uL (359-1519); Abs CD8 Suppres 1579 /uL (109-897); CD4/CD8 Ratio 0.94 (0.92-3.72); Eosinophils 5 % (Not Estab.); HCT 37.9 % (37.5-51.0); HGB 12.9 g/dL (13.0-17.7); HIV-1 RNA PCR QUANT 2 LC550285 59700 copies/mL (.); HIV-1 RNA PCR QUANT 3 LC550285 4.776 (.); Immature Grans 0 % (Not Estab.); Lymphocytes 48 % (Not Estab.); MCH 34.3 pg (26.6-33.0); MCV 101 fL (79-97); Monocytes 8 % (Not Estab.); Neutrophils 38 % (Not Estab.); Platelets 173 x10E3/uL (150-450); RBC 3.76 x10E6/uL (4.14-5.80); UNITSIGA FOR GLIADIN IGA 2 units (0-19); UNITSIGG FOR GLIADIN IGG 2 units (0-19); WBC 7.4 x10E3/uL (3.4-10.8)
== END ==
LOC: M PLALAB 02-14 14:30
PROVIDERS: ATTEND Internal Medicine Infectious Disease
DX: R94.5 Abnormal results of liver function studies (principal); B20 Human immunodeficiency virus [HIV] disease; R79.89 Other specified abnormal findings of blood chemistry

== ENCOUNTER → 2021-05-17 | Outpatient (CLI) | payer OTHER ==
[2021-05-17 16:04] LABS: ALBUMIN 3.8 GM/DL (3.2-5.2); ALT/SGPT 157 U/L (12-78); BILIRUBIN,TOTAL 0.3 MG/DL (0.2-1.0); BLOOD UREA NITROGEN 11 MG/DL (7-18); CARBON DIOXIDE LEVEL 32 MEQ/L (21-32); CHLORIDE LEVEL 104 MEQ/L (98-107); CREATININE FOR GFR 0.88 MG/DL (0.70-1.30); GLOMERULAR FILTRATION RATE > 60.0 (>60); GLUCOSE, FASTING 87 MG/DL (70-100); SODIUM LEVEL 139 MEQ/L (136-145); TOTAL PROTEIN 8.2 GM/DL (6.4-8.2)
[2021-05-20 23:07] LABS: HEPATITIS A IgG TOTAL Positive (Negative); HEPATITIS C QUANTITATION 953000 IU/mL (.); HEPATITIS C VIRUS GENOTYPE 3 (.); HIV-1 RNA PCR QUANT 2 LC550285 30 copies/mL (.); HIV-1 RNA PCR QUANT 3 LC550285 1.477 (.)
== END ==
LOC: M PLALAB 13:15
PROVIDERS: ATTEND Internal Medicine Infectious Disease
DX: B18.2 Chronic viral hepatitis C (principal); B20 Human immunodeficiency virus [HIV] disease

== ENCOUNTER → 2021-12-08 | Outpatient (CLI) | payer OTHER ==
[2021-12-08 14:34] LABS: ALBUMIN 3.7 GM/DL (3.2-5.2); ALT/SGPT 17 U/L (12-78); BILIRUBIN,TOTAL 0.2 MG/DL (0.2-1.0); BLOOD UREA NITROGEN 16 MG/DL (7-18); CALCIUM LEVEL 8.1 MG/DL (8.5-10.1); CARBON DIOXIDE LEVEL 26 MEQ/L (21-32); CHLORIDE LEVEL 109 MEQ/L (98-107); CREATININE FOR GFR 0.91 MG/DL (0.70-1.30); FREE T4 0.88 NG/DL (0.76-1.46); GLOMERULAR FILTRATION RATE > 60.0 (>60); GLUCOSE, FASTING 87 MG/DL (70-100); POTASSIUM SERUM 4.6 MEQ/L (3.5-5.1); SODIUM LEVEL 139 MEQ/L (136-145); TOTAL PROTEIN 7.4 GM/DL (6.4-8.2)
[2021-12-08 22:48] LABS: TOTAL T3 78.2 NG/DL (60.0-181.0)
[2021-12-09 16:08] LABS: % CD8 Pos Lymph 43.3 % (12.0-35.5); %CD4 Pos Lymphs 45.4 % (30.8-58.5); ABS Eosinophils 0.3 x10E3/uL (0.0-0.4); ABS Lymphs 4.8 x10E3/uL (0.7-3.1); ABS Monocytes 0.5 x10E3/uL (0.1-0.9); ABS Neutophils 2.7 x10E3/uL (1.4-7.0); Abs CD4 Helper 2179 /uL (359-1519); Abs CD8 Suppres 2078 /uL (109-897); CD4/CD8 Ratio 1.05 (0.92-3.72); Eosinophils 3 % (Not Estab.); HCT 38.1 % (37.5-51.0); HEPATITIS C QUANTITATION HCV Not Detected IU/mL (.); HGB 12.9 g/dL (13.0-17.7); HIV-1 RNA PCR QUANT 2 LC550285 <20 copies/mL (.); Immature Grans 0 % (Not Estab.); Lymphocytes 57 % (Not Estab.); MCH 34.1 pg (26.6-33.0); MCHC 33.9 g/dL (31.5-35.7); MCV 101 fL (79-97); Monocytes 6 % (Not Estab.); Neutrophils 33 % (Not Estab.); Platelets 198 x10E3/uL (150-450); RBC 3.78 x10E6/uL (4.14-5.80); RDW 12.8 % (11.6-15.4); WBC 8.2 x10E3/uL (3.4-10.8)
== END ==
LOC: M PLALAB 10:34
PROVIDERS: ATTEND Internal Medicine Infectious Disease
DX: B20 Human immunodeficiency virus [HIV] disease (principal); B18.2 Chronic viral hepatitis C; R79.89 Other specified abnormal findings of blood chemistry

== ENCOUNTER 2022-03-04 20:17 | Emergency (ER) | payer OTHER ==
[~2022-03-04] VITALS: Ht 190.5 cm; Wt 76.4 kg
[2022-03-04 20:18] VITALS: BP 135/62
[2022-03-04] MEDS ORDERED: GABA-283 PO (20:24)
[2022-03-04] MEDS ORDERED: BACT800T5 PO (22:42)
[2022-03-04] MEDS ORDERED: DOXYCYCLINE HYCLATE 100MG TABLET PO ONE (22:45)
== END 2022-03-04 23:02 | disposition home or self-care (01) ==
LOC: M ED 20:17
DX: L02.214 Cutaneous abscess of groin (principal); E11.9 Type 2 diabetes mellitus without complications; K21.9 Gastro-esophageal reflux disease without esophagitis; B20 Human immunodeficiency virus [HIV] disease; F32.A Depression, unspecified; F41.9 Anxiety disorder, unspecified; F17.290 Nicotine dependence, other tobacco product, uncomplicated; Z79.899 Other long term (current) drug therapy

== ENCOUNTER → 2022-05-15 | Outpatient (CLI) | payer OTHER ==
[~2022-05-15] MED LIST changes: +BACT800T5 PO; +GABA-283 PO
[2022-05-15 15:50] LABS: APPEARANCE, URINE MANUAL CLOUDY (CLEAR); BILIRUBIN, URINE MANUAL NEGATIVE (NEGATIVE); BLOOD URINE MANUAL NEGATIVE (NEGATIVE); COLOR, URINE MANUAL YELLOW (YELLOW); GLUCOSE, URINE (UA) MANUAL NEGATIVE (NEGATIVE); LEUKOCYTE ESTERASE, URINE MAN NEGATIVE (NEGATIVE); NITRITE, URINE MANUAL NEGATIVE (NEGATIVE); PROTEIN, URINE MANUAL NEGATIVE (NEGATIVE)
[2022-05-15 15:51] LABS: KETONE, URINE MANUAL 1+ mg/dL (NEGATIVE); UROBILINOGEN, URINE MANUAL 1 MG mg/dl (NORMAL)
[2022-05-15 15:56] LABS: CHLORIDE LEVEL 104 MMOL/L (98-107); SODIUM LEVEL 140 MMOL/L (136-145)
[2022-05-15 15:57] LABS: CARBON DIOXIDE LEVEL 27 MMOL/L (20-31)
[2022-05-15 16:02] LABS: BLOOD UREA NITROGEN 13 MG/DL (9-23); GLUCOSE, FASTING 87 MG/DL (60-100)
[2022-05-15 16:03] LABS: ALKALINE PHOSPHATASE 49 U/L (46-116)
[2022-05-15 16:04] LABS: BILIRUBIN,TOTAL 0.9 MG/DL (0.3-1.2); TOTAL PROTEIN 7.7 G/DL (5.7-8.2)
[2022-05-15 16:05] LABS: ALT/SGPT 23 U/L (7.0-40); AST/SGOT 33 U/L (<34)
[2022-05-15 16:07] LABS: AMORPHOUS SEDIMENT, URINE LARGE AMOUNT (NEGATIVE)
[2022-05-15 16:19] LABS: GLOMERULAR FILTRATION RATE > 60.0 (>60)
[2022-05-15 16:21] LABS: POTASSIUM SERUM 3.9 MMOL/L (3.5-5.1)
[2022-05-15 17:46] LABS: GC DNA AMPLIFICATION NEGATIVE (NEGATIVE)
[2022-05-18 05:07] LABS: % CD8 Pos Lymph 43.8 % (12.0-35.5); %CD4 Pos Lymphs 42.6 % (30.8-58.5); ABS Basophils 0.1 x10E3/uL (0.0-0.2); ABS Eosinophils 0.1 x10E3/uL (0.0-0.4); ABS Lymphs 4.4 x10E3/uL (0.7-3.1); ABS Monocytes 0.5 x10E3/uL (0.1-0.9); Abs CD4 Helper 1874 /uL (359-1519); Abs CD8 Suppres 1927 /uL (109-897); CD4/CD8 Ratio 0.97 (0.92-3.72); Eosinophils 1 % (Not Estab.); HCT 35.2 % (37.5-51.0); HEPATITIS C QUANTITATION HCV Not Detected IU/mL (.); HGB 11.9 g/dL (13.0-17.7); HIV-1 RNA PCR QUANT 2 LC550285 <20 copies/mL (.); Immature Grans 0 % (Not Estab.); Lymphocytes 55 % (Not Estab.); MCH 34.3 pg (26.6-33.0); MCHC 33.8 g/dL (31.5-35.7); MCV 101 fL (79-97); Monocytes 6 % (Not Estab.); Neutrophils 37 % (Not Estab.); Platelets 189 x10E3/uL (150-450); RBC 3.47 x10E6/uL (4.14-5.80); RDW 13.2 % (11.6-15.4)
== END ==
LOC: M PLALAB 11:53
PROVIDERS: ATTEND Internal Medicine Infectious Disease
DX: B20 Human immunodeficiency virus [HIV] disease (principal); B18.2 Chronic viral hepatitis C

== ENCOUNTER 2022-12-02 03:13 | Emergency (ER) | payer OTHER ==
[~2022-12-02] VITALS: Ht 190.5 cm; Wt 78.6 kg
[~2022-12-02 03:13] MED LIST changes: +BENZ0.5T2 PO; -BENZ0.5T23 PO
[2022-12-02 03:14] VITALS: BP 117/70; TEMP 97.7; O2SAT 100
== END 2022-12-02 03:37 | disposition left against medical advice (07) ==
LOC: M ED 03:13
DX: Z53.21 Procedure and treatment not carried out due to patient leaving prior to being seen by health care provider (principal)

== ENCOUNTER 2023-03-29 22:11 | Emergency (ER) | payer OTHER ==
[~2023-03-29] VITALS: Ht 190.5 cm; Wt 76.3 kg
[2023-03-29 22:11] VITALS: BP 127/66; TEMP 96.8; O2SAT 98
[~2023-03-29 22:11] MED LIST changes: -GABA-283 PO; +GABA-284 PO
== END 2023-03-29 22:17 | disposition left against medical advice (07) ==
LOC: M ED 22:11
DX: Z53.21 Procedure and treatment not carried out due to patient leaving prior to being seen by health care provider (principal)

== ENCOUNTER 2023-06-23 09:12 | Inpatient (IN) | payer OTHER ==
[~2023-06-23] VITALS: Ht 190.5 cm; Wt 79.4 kg
[~2023-06-23 09:12] MED LIST changes: +NICO21PAT TD
[2023-06-23] MEDS ORDERED: MED REC IN PROGRESS XX SCH (10:00)
[2023-06-23 10:06] LABS: HEMATOCRIT 39.6 % (42.0-52.0); HEMOGLOBIN 13.1 g/dl (13.5-17.5); MEAN CORPUSCULAR HEMOGLOBIN 33.5 pg (27.0-33.0); MEAN CORPUSCULAR HGB CONC 33.1 g/dl (32.0-36.5); MEAN CORPUSCULAR VOLUME 101.3 fl (80.0-96.0); PLATELET COUNT, AUTOMATED 238 10^3/uL (150-450); RED BLOOD COUNT 3.91 10^6/uL (4.30-6.10); WHITE BLOOD COUNT 8.5 10^3/uL (4.0-10.0)
[2023-06-23 10:28] LABS: ETHYL ALCOHOL (ETHANOL) 0.005 % (0.000-0.010)
[2023-06-23 10:29] LABS: SALICYLATE LEVEL < 3.0 MG/DL (<30)
[2023-06-23 10:30] LABS: ALBUMIN 3.7 G/DL (3.2-5.2); ALKALINE PHOSPHATASE 65 U/L (46-116); ALT/SGPT 65 U/L (7.0-40); AST/SGOT 74 U/L (<34); BILIRUBIN,DIRECT 0.2 MG/DL (<0.4); BILIRUBIN,TOTAL 0.6 MG/DL (0.3-1.2); BLOOD UREA NITROGEN 16 MG/DL (9-23); CALCIUM LEVEL 9.1 MG/DL (8.5-10.1); CARBON DIOXIDE LEVEL 30 MMOL/L (20-31); CHLORIDE LEVEL 104 MMOL/L (98-107); CREATININE FOR GFR 0.63 MG/DL (0.70-1.30); GLOMERULAR FILTRATION RATE > 60.0 (>60); GLUCOSE, FASTING 87 MG/DL (60-100); POTASSIUM SERUM 3.9 MMOL/L (3.5-5.1); SODIUM LEVEL 138 MMOL/L (136-145); TOTAL PROTEIN 8.2 G/DL (5.7-8.2)
[2023-06-23 10:32] LABS: THYROID STIMULATING HORMONE 0.448 uIU/ML (0.55-4.78)
[2023-06-23] MEDS ORDERED: GABA600T4 PO (10:52)
[2023-06-23] MEDS ORDERED: HOME MED LIST COMPLETE! XX SCH (11:00)
[2023-06-23 11:48] LABS: BARBITURATES URINE NEGATIVE (NEGATIVE); BENZODIAZEPINES URINE NEGATIVE (NEGATIVE); COCAINE METABOLITE URINE NEGATIVE (NEGATIVE); METHADONE URINE NEGATIVE (NEGATIVE); OPIATES URINE NEGATIVE (NEGATIVE); PHENCYCLIDINE URINE NEGATIVE (NEGATIVE)
[2023-06-23 11:55] LABS: AMPHETAMINES LEVEL URINE POSITIVE (NEGATIVE); CANNABINOIDS URINE POSITIVE (NEGATIVE)
[2023-06-23] MEDS ORDERED: diphenhydrAMINE 25MG CAP PO PRN (14:40)
[2023-06-23] MEDS ORDERED: MOM 30ML SUSPENSION UDC PO PRN (14:40)
[2023-06-23] MEDS ORDERED: MAALOX 30 ML SUSP *UDC PO PRN (14:40)
[2023-06-23 17:12] VITALS: BP 93/52; TEMP 98.8; O2SAT 96
[2023-06-23] MEDS: traZODone 50 MG TAB PO PRN (20:23)
[2023-06-24] MEDS: NICOTINE 21MG/24HR 1 EA TRANSDERMAL TD SCH (09:37)
[2023-06-24] MEDS: OLANZapine ORAL DISINTEGRATING TAB 5MG PO SCH ×2 (13:51→20:45)
[2023-06-24 15:34] VITALS: BP 128/58; TEMP 97.8; O2SAT 100
[2023-06-24] MEDS ORDERED: HALOPERIDOL 5MG/ML 1ML VIAL IM STA (20:53)
[2023-06-24] MEDS ORDERED: LORazepam 2 MG/ML 1ML VIAL IM STA (20:53)
[2023-06-24] MEDS ORDERED: diphenhydrAMINE 50MG/ML VIAL IM STA (20:53)
[2023-06-25 06:51] VITALS: BP 103/55; TEMP 97.5; O2SAT 100
[2023-06-25] MEDS: **UNRESOLVED NON-FORMULARY MED ORDER XX SCH (09:00)
[2023-06-25] MEDS: OLANZapine ORAL DISINTEGRATING TAB 5MG PO SCH ×2 (09:35→20:53)
[2023-06-25] MEDS: NICOTINE 21MG/24HR 1 EA TRANSDERMAL TD SCH (09:37)
[2023-06-25 18:00] VITALS: BP 121/63; TEMP 98.4; O2SAT 98
[2023-06-25] MEDS ORDERED: INFLUENZA QUADRIVALENT PF VACCINE 0.5ML SYRINGE IM.IMMUN ONE (18:00)
[2023-06-26 06:36] VITALS: BP 118/65; TEMP 97; O2SAT 97
[2023-06-26] MEDS: **UNRESOLVED NON-FORMULARY MED ORDER XX SCH (09:00)
[2023-06-26] MEDS: OLANZapine ORAL DISINTEGRATING TAB 5MG PO SCH ×2 (09:23→20:18)
[2023-06-26] MEDS: NICOTINE 21MG/24HR 1 EA TRANSDERMAL TD SCH (09:24)
[2023-06-26 18:02] VITALS: BP 116/69; TEMP 99.1; O2SAT 97
[2023-06-26] MEDS: traZODone 50 MG TAB PO PRN (20:18)
[2023-06-27 06:24] VITALS: BP 115/58; TEMP 97.4; O2SAT 100
[2023-06-27] MEDS: OLANZapine ORAL DISINTEGRATING TAB 5MG PO SCH ×2 (08:31→20:38)
[2023-06-27] MEDS: NICOTINE 21MG/24HR 1 EA TRANSDERMAL TD SCH (08:32)
[2023-06-27] MEDS: BIKTARVY PO SCH (09:00)
[2023-06-27] MEDS: **UNRESOLVED NON-FORMULARY MED ORDER XX SCH (09:00)
[2023-06-27] MEDS: traZODone 50 MG TAB PO PRN (20:38)
[2023-06-28 06:24] VITALS: BP 104/59; TEMP 99.4; O2SAT 98
[2023-06-28 06:26] VITALS: BP 104/59; TEMP 99.4; O2SAT 98
[2023-06-28] MEDS: NICOTINE 21MG/24HR 1 EA TRANSDERMAL TD SCH (08:19)
[2023-06-28] MEDS: BIKTARVY PO SCH (08:20)
[2023-06-28] MEDS: OLANZapine ORAL DISINTEGRATING TAB 5MG PO SCH ×2 (08:20→20:22)
[2023-06-28 16:46] VITALS: BP 117/56; TEMP 98; O2SAT 96
[2023-06-28] MEDS: traZODone 50 MG TAB PO PRN (20:22)
[2023-06-29 06:35] VITALS: BP 128/72; TEMP 97.8; O2SAT 96
[2023-06-29] MEDS: BIKTARVY PO SCH (07:56)
[2023-06-29] MEDS: OLANZapine ORAL DISINTEGRATING TAB 5MG PO SCH ×2 (07:56→20:37)
[2023-06-29] MEDS: NICOTINE 21MG/24HR 1 EA TRANSDERMAL TD SCH (07:59)
[2023-06-29 16:30] VITALS: BP 118/60; TEMP 98.5; O2SAT 100
[2023-06-29] MEDS: traZODone 50 MG TAB PO PRN (20:37)
[2023-06-30 06:06] VITALS: BP 120/57; TEMP 96.7; O2SAT 97
[2023-06-30] MEDS: BIKTARVY PO SCH (08:24)
[2023-06-30] MEDS: OLANZapine ORAL DISINTEGRATING TAB 5MG PO SCH ×2 (08:26→20:11)
[2023-06-30] MEDS: NICOTINE 21MG/24HR 1 EA TRANSDERMAL TD SCH (08:27)
[2023-06-30] MEDS: IBUPROFEN 400MG TAB PO PRN (15:37)
[2023-06-30 18:28] VITALS: BP 126/61; TEMP 97.4
[2023-06-30] MEDS: traZODone 50 MG TAB PO PRN (20:11)
[2023-06-30] MEDS: ACETAMINOPHEN TAB 650MG DOSE (2X325MG) PO PRN (20:11)
[2023-07-01 06:26] VITALS: BP 116/65; TEMP 98.3; O2SAT 99
[2023-07-01] MEDS: OLANZapine ORAL DISINTEGRATING TAB 5MG PO SCH ×2 (08:03→20:04)
[2023-07-01] MEDS: BIKTARVY PO SCH (08:03)
[2023-07-01] MEDS: IBUPROFEN 400MG TAB PO PRN ×2 (08:04→20:05)
[2023-07-01] MEDS: NICOTINE 21MG/24HR 1 EA TRANSDERMAL TD SCH (08:06)
[2023-07-01] MEDS: ACETAMINOPHEN TAB 650MG DOSE (2X325MG) PO PRN (18:15)
[2023-07-01 18:55] VITALS: BP 119/61; TEMP 97.9
[2023-07-01] MEDS: traZODone 50 MG TAB PO PRN (20:05)
[2023-07-02 06:26] VITALS: BP 128/66; TEMP 97.4; O2SAT 100
[2023-07-02] MEDS: BIKTARVY PO SCH (08:07)
[2023-07-02] MEDS: NICOTINE 21MG/24HR 1 EA TRANSDERMAL TD SCH (08:07)
[2023-07-02] MEDS: OLANZapine ORAL DISINTEGRATING TAB 5MG PO SCH ×2 (08:07→20:11)
[2023-07-02 18:11] VITALS: BP 118/73; TEMP 97.9; O2SAT 100
[2023-07-02] MEDS: traZODone 50 MG TAB PO PRN (20:55)
[2023-07-03 06:37] VITALS: BP 133/60; TEMP 97.3; O2SAT 98
[2023-07-03] MEDS: OLANZapine ORAL DISINTEGRATING TAB 5MG PO SCH (08:30)
[2023-07-03] MEDS: NICOTINE 21MG/24HR 1 EA TRANSDERMAL TD SCH (08:34)
[2023-07-03] MEDS: BIKTARVY PO SCH (08:34)
[2023-07-03] MEDS ORDERED: NICO21PAT TD (09:40)
[2023-07-03] MEDS ORDERED: Patient Own Medication PO (09:40)
[2023-07-03] MEDS ORDERED: TRAZ-252 PO (09:40)
[2023-07-03] MEDS ORDERED: OLAN1TAB20 PO (09:40)
== END 2023-07-03 15:10 | disposition home or self-care (01) | DRG 892 ==
LOC: M ED 09:12 → M ED INP 14:36 → M PSY 16:44
PROVIDERS: ADMIT Psychiatry & Neurology Psychiatry; ATTEND Student in an Organized Health Care Education/Training Program
DX: F29 Unspecified psychosis not due to a substance or known physiological condition (principal); R45.851 Suicidal ideations; R45.850 Homicidal ideations; B20 Human immunodeficiency virus [HIV] disease; R74.01 Elevation of levels of liver transaminase levels; D75.89 Other specified diseases of blood and blood-forming organs; E07.9 Disorder of thyroid, unspecified; Z71.51 Drug abuse counseling and surveillance of drug abuser; Z79.899 Other long term (current) drug therapy; Z20.822 Contact with and (suspected) exposure to COVID-19; Z62.810 Personal history of physical and sexual abuse in childhood

== ENCOUNTER 2023-07-06 23:45 | Emergency (ER) | payer OTHER ==
[~2023-07-06] VITALS: Ht 190.5 cm; Wt 84.2 kg
[~2023-07-06 23:45] MED LIST changes: +Patient Own Medication PO; +TRAZ-252 PO
[2023-07-07 05:29] VITALS: BP 136/85; TEMP 98.7; O2SAT 100
[2023-07-07] MEDS ORDERED: BACITRACIN OINTMENT 30GM TUBE TOP ONE (07:55)
[2023-07-08] MEDS ORDERED: BIKT1TAB PO (17:54)
[2023-07-08] MEDS ORDERED: OLAN1TAB20 PO (17:54)
[2023-07-08] MEDS ORDERED: NICO21DI38 TD (17:54)
== END 2023-07-07 09:07 | disposition home or self-care (01) ==
LOC: M ED 23:45
DX: S80.811A Abrasion, right lower leg, initial encounter (principal); S80.812A Abrasion, left lower leg, initial encounter; F41.9 Anxiety disorder, unspecified; F32.A Depression, unspecified; K21.9 Gastro-esophageal reflux disease without esophagitis; Y92.9 Unspecified place or not applicable; Y93.9 Activity, unspecified; Y99.9 Unspecified external cause status; Z79.899 Other long term (current) drug therapy

== ENCOUNTER 2023-07-08 15:52 | Inpatient (IN) | payer OTHER ==
[~2023-07-08] VITALS: Ht 190.5 cm; Wt 84.2 kg
[2023-07-08] MEDS ORDERED: OLANZapine ORAL DISINTEGRATING TAB 5MG PO ONE (16:15)
[2023-07-08 16:43] LABS: HEMATOCRIT 37.6 % (42.0-52.0); HEMOGLOBIN 12.7 g/dl (13.5-17.5); MEAN CORPUSCULAR HEMOGLOBIN 33.8 pg (27.0-33.0); MEAN CORPUSCULAR HGB CONC 33.8 g/dl (32.0-36.5); PLATELET COUNT, AUTOMATED 230 10^3/uL (150-450); RED BLOOD COUNT 3.76 10^6/uL (4.30-6.10); WHITE BLOOD COUNT 11.3 10^3/uL (4.0-10.0)
[2023-07-08 16:54] LABS: BARBITURATES URINE NEGATIVE (NEGATIVE); BENZODIAZEPINES URINE NEGATIVE (NEGATIVE); COCAINE METABOLITE URINE NEGATIVE (NEGATIVE); METHADONE URINE NEGATIVE (NEGATIVE); OPIATES URINE NEGATIVE (NEGATIVE); PHENCYCLIDINE URINE NEGATIVE (NEGATIVE)
[2023-07-08 16:55] LABS: AMPHETAMINES LEVEL URINE POSITIVE (NEGATIVE); CANNABINOIDS URINE POSITIVE (NEGATIVE)
[2023-07-08 17:09] LABS: ETHYL ALCOHOL (ETHANOL) 0.003 % (0.000-0.010)
[2023-07-08 17:10] LABS: SALICYLATE LEVEL < 3.0 MG/DL (<30)
[2023-07-08 17:11] LABS: ALBUMIN 3.6 G/DL (3.2-5.2); ALKALINE PHOSPHATASE 58 U/L (46-116); ALT/SGPT 34 U/L (7.0-40); AST/SGOT 52 U/L (<34); BILIRUBIN,DIRECT 0.2 MG/DL (<0.4); BILIRUBIN,TOTAL 0.8 MG/DL (0.3-1.2); BLOOD UREA NITROGEN 17 MG/DL (9-23); CALCIUM LEVEL 8.9 MG/DL (8.5-10.1); CARBON DIOXIDE LEVEL 30 MMOL/L (20-31); CHLORIDE LEVEL 104 MMOL/L (98-107); CREATININE FOR GFR 0.73 MG/DL (0.70-1.30); GLOMERULAR FILTRATION RATE > 60.0 (>60); GLUCOSE, FASTING 77 MG/DL (60-100); POTASSIUM SERUM 3.9 MMOL/L (3.5-5.1); SODIUM LEVEL 138 MMOL/L (136-145); TOTAL PROTEIN 8.1 G/DL (5.7-8.2)
[2023-07-08 17:13] LABS: THYROID STIMULATING HORMONE 0.611 uIU/ML (0.55-4.78)
[2023-07-08] MEDS ORDERED: OLAN1TAB20 PO (17:54)
[2023-07-08] MEDS ORDERED: NICO21DI38 TD (17:54)
[2023-07-08] MEDS ORDERED: BIKT1TAB PO (17:54)
[2023-07-08] MEDS ORDERED: HOME MED LIST COMPLETE! XX SCH (17:55)
[2023-07-08] MEDS: OLANZapine ORAL DISINTEGRATING TAB 5MG PO SCH (21:00)
[2023-07-09] MEDS: OLANZapine ORAL DISINTEGRATING TAB 5MG PO SCH ×2 (12:47→21:01)
[2023-07-09] MEDS ORDERED: ACETAMINOPHEN TAB 650MG DOSE (2X325MG) PO PRN (16:05)
[2023-07-09] MEDS ORDERED: MAALOX 30 ML SUSP *UDC PO PRN (16:05)
[2023-07-09] MEDS ORDERED: diphenhydrAMINE 25MG CAP PO PRN (16:05)
[2023-07-09] MEDS ORDERED: MOM 30ML SUSPENSION UDC PO PRN (16:05)
[2023-07-10 06:23] VITALS: BP 126/68; TEMP 97.5; O2SAT 98
[2023-07-10] MEDS ORDERED: TUBERCULIN PPD 5 UNITS/0.1 ML ID ONE ×2 (10:00)
[2023-07-10 18:00] VITALS: BP 132/66; TEMP 99.1; O2SAT 100
[2023-07-10] MEDS: traZODone 50 MG TAB PO PRN (20:45)
[2023-07-11 06:08] VITALS: BP 101/51; TEMP 98; O2SAT 98
[2023-07-11] MEDS: BIKTARVY PO SCH (15:15)
[2023-07-11 16:56] VITALS: BP 124/62; TEMP 98.1; O2SAT 99
[2023-07-11] MEDS: IBUPROFEN 400MG TAB PO PRN (17:19)
[2023-07-11] MEDS: traZODone 50 MG TAB PO PRN (21:01)
[2023-07-12 06:10] VITALS: BP 131/86; TEMP 97.5; O2SAT 96
[2023-07-12] MEDS: BIKTARVY PO SCH (08:33)
[2023-07-12] MEDS ORDERED: HALOPERIDOL DECANOATE 100 MG/ML 1ML VIAL IM SCH (09:00)
[2023-07-12] MEDS ORDERED: PPD DOCUMENTATION ENTRY MISC XX SCH (10:00)
[2023-07-12] MEDS ORDERED: PPD DOCUMENTATION ENTRY MISC XX ONE (10:00)
[2023-07-12] MEDS ORDERED: BENZTROPINE 1 MG TAB PO PRN (10:35)
[2023-07-12] MEDS ORDERED: TUBERCULIN PPD 5 UNITS/0.1 ML ID ONE (11:00)
[2023-07-12 16:11] VITALS: BP 154/85; TEMP 97.5; O2SAT 100
[2023-07-12] MEDS: traZODone 50 MG TAB PO PRN (21:16)
[2023-07-13 06:20] VITALS: BP 122/62; TEMP 98.1; O2SAT 96
[2023-07-13] MEDS: BIKTARVY PO SCH (08:44)
[2023-07-13] MEDS ORDERED: TUBERCULIN PPD 5 UNITS/0.1 ML ID ONE (10:00)
[2023-07-13] MEDS: IBUPROFEN 400MG TAB PO PRN (21:58)
[2023-07-13] MEDS: traZODone 50 MG TAB PO PRN (21:59)
[2023-07-14 06:32] VITALS: BP 100/54; TEMP 98.8
[2023-07-14] MEDS: BIKTARVY PO SCH (08:43)
[2023-07-14] MEDS ORDERED: PPD DOCUMENTATION ENTRY MISC XX SCH ×2 (10:00→11:00)
[2023-07-15 06:16] VITALS: BP 104/57; TEMP 98.7; O2SAT 98
[2023-07-15] MEDS: BIKTARVY PO SCH (09:12)
[2023-07-15 16:12] VITALS: BP 124/73; TEMP 98; O2SAT 99
[2023-07-16 06:21] VITALS: BP 102/64; TEMP 98; O2SAT 98
[2023-07-16] MEDS: BIKTARVY PO SCH (09:06)
[2023-07-16 17:25] VITALS: BP 127/69; TEMP 97.6; O2SAT 96
[2023-07-17 06:45] VITALS: BP 111/58; TEMP 98.5; O2SAT 100
[2023-07-17] MEDS: BIKTARVY PO SCH (09:18)
[2023-07-17 19:11] VITALS: BP 121/70; TEMP 98.6; O2SAT 98
[2023-07-17] MEDS: traZODone 50 MG TAB PO PRN (20:31)
[2023-07-18 06:11] VITALS: BP 102/57; TEMP 97.2; O2SAT 98
[2023-07-18] MEDS: BIKTARVY PO SCH (08:53)
[2023-07-18] MEDS ORDERED: TRAZ-252 PO (09:47)
[2023-07-18] MEDS ORDERED: HALO10AM IM (09:47)
[2023-07-18] MEDS ORDERED: BENZ1TAB5 PO (09:47)
== END 2023-07-18 12:24 | disposition home or self-care (01) | DRG 892 ==
LOC: M ED 15:52 → M ED INP 07-09 16:02 → M PSY 07-09 18:34
PROVIDERS: ADMIT Student in an Organized Health Care Education/Training Program; ATTEND Student in an Organized Health Care Education/Training Program
DX: F29 Unspecified psychosis not due to a substance or known physiological condition (principal); U07.1 COVID-19; B20 Human immunodeficiency virus [HIV] disease; R45.851 Suicidal ideations; F15.90 Other stimulant use, unspecified, uncomplicated; F17.200 Nicotine dependence, unspecified, uncomplicated; F12.90 Cannabis use, unspecified, uncomplicated; Z62.810 Personal history of physical and sexual abuse in childhood; Z59.00 Homelessness unspecified; R45.850 Homicidal ideations; Z79.899 Other long term (current) drug therapy

== ENCOUNTER 2023-11-08 11:16 | Inpatient (IN) | payer MEDICAID, OTHER ==
[~2023-11-08] VITALS: Ht 190.5 cm; Wt 72.7 kg
[~2023-11-08 11:16] MED LIST changes: +BENZ1TAB5 PO; +HALO10AM IM; +NICO21DI38 TOP
[2023-11-08 12:11] LABS: HEMATOCRIT 37.9 % (42.0-52.0); MEAN CORPUSCULAR HEMOGLOBIN 33.6 pg (27.0-33.0); MEAN CORPUSCULAR HGB CONC 34.3 g/dl (32.0-36.5); MEAN CORPUSCULAR VOLUME 97.9 fl (80.0-96.0); PLATELET COUNT, AUTOMATED 198 10^3/uL (150-450); RED BLOOD COUNT 3.87 10^6/uL (4.30-6.10); WHITE BLOOD COUNT 9.6 10^3/uL (4.0-10.0)
[2023-11-08 12:40] LABS: ETHYL ALCOHOL (ETHANOL) < 0.003 % (0.000-0.010)
[2023-11-08 12:41] LABS: SALICYLATE LEVEL < 3.0 MG/DL (<30)
[2023-11-08 12:42] LABS: ALBUMIN 4.5 G/DL (3.2-5.2); ALKALINE PHOSPHATASE 90 U/L (46-116); ALT/SGPT 177 U/L (7.0-40); AST/SGOT 144 U/L (<34); BILIRUBIN,DIRECT 0.3 MG/DL (<0.4); BLOOD UREA NITROGEN 29 MG/DL (9-23); CALCIUM LEVEL 9.4 MG/DL (8.5-10.1); CARBON DIOXIDE LEVEL 29 MMOL/L (20-31); CHLORIDE LEVEL 102 MMOL/L (98-107); GLOMERULAR FILTRATION RATE > 60.0 (>60); GLUCOSE, FASTING 94 MG/DL (60-100); POTASSIUM SERUM 3.5 MMOL/L (3.5-5.1); SODIUM LEVEL 137 MMOL/L (136-145); TOTAL PROTEIN 8.8 G/DL (5.7-8.2)
[2023-11-08 14:53] LABS: FREE T4 1.25 NG/DL (0.89-1.76)
[2023-11-08] MEDS ORDERED: BENZ1TAB5 PO (15:02)
[2023-11-08] MEDS ORDERED: OLAN1TAB20 PO (15:02)
[2023-11-08] MEDS ORDERED: TRAZ-186 PO (15:02)
[2023-11-08] MEDS ORDERED: HALO10AM IM (15:02)
[2023-11-08] MEDS ORDERED: HOME MED LIST COMPLETE! XX SCH (15:05)
[2023-11-08 15:14] LABS: AMPHETAMINES LEVEL URINE POSITIVE (NEGATIVE); BARBITURATES URINE NEGATIVE (NEGATIVE); BENZODIAZEPINES URINE NEGATIVE (NEGATIVE); CANNABINOIDS URINE POSITIVE (NEGATIVE); COCAINE METABOLITE URINE POSITIVE (NEGATIVE); METHADONE URINE NEGATIVE (NEGATIVE); OPIATES URINE NEGATIVE (NEGATIVE); PHENCYCLIDINE URINE NEGATIVE (NEGATIVE)
[2023-11-08] MEDS ORDERED: diphenhydrAMINE 25MG CAP PO PRN (18:50)
[2023-11-08] MEDS ORDERED: LORazepam 1 MG TAB PO PRN (18:50)
[2023-11-08] MEDS ORDERED: MOM 30ML SUSPENSION UDC PO PRN (18:50)
[2023-11-08] MEDS ORDERED: MAALOX 30 ML SUSP *UDC PO PRN (18:50)
[2023-11-08] MEDS ORDERED: ACETAMINOPHEN TAB 650MG DOSE (2X325MG) PO PRN (18:50)
[2023-11-08] MEDS ORDERED: IBUPROFEN 400MG TAB PO PRN (18:50)
[2023-11-08] MEDS: LORazepam 2 MG TAB PO STA (19:05)
[2023-11-09] MEDS ORDERED: LORazepam 2 MG TAB PO PRN (10:35)
[2023-11-09 16:10] VITALS: BP 113/60; TEMP 98.3; O2SAT 99
[2023-11-09] MEDS: traZODone 50 MG TAB PO PRN (21:53)
[2023-11-10 06:19] VITALS: BP 90/53; TEMP 98.9; O2SAT 95
[2023-11-10 11:15] LABS: CHOLESTEROL RISK RATIO 3.56 (<5); HDL CHOLESTEROL 49.6 MG/DL (>40); NON-HDL-C 127.4 MG/DL
[2023-11-10 15:45] VITALS: BP 111/59; TEMP 97.4; O2SAT 99
[2023-11-11 06:44] VITALS: BP 98/52; TEMP 98.2; O2SAT 100
[2023-11-11 15:51] VITALS: BP 108/60; TEMP 96.9; O2SAT 100
[2023-11-12 06:40] VITALS: BP 114/65; TEMP 97.6; O2SAT 100
[2023-11-12 17:50] VITALS: BP 135/70; TEMP 97
[2023-11-13 06:24] VITALS: BP 101/57; TEMP 98.3; O2SAT 100
[2023-11-13] MEDS ORDERED: HALO5TAB33 PO (10:44)
== END 2023-11-13 13:31 | disposition home or self-care (01) | DRG 892 ==
LOC: M ED 11:16 → M ED INP 18:48 → M PSY 11-09 10:29
PROVIDERS: ADMIT Student in an Organized Health Care Education/Training Program; ATTEND Student in an Organized Health Care Education/Training Program
DX: F29 Unspecified psychosis not due to a substance or known physiological condition (principal); B20 Human immunodeficiency virus [HIV] disease; F17.200 Nicotine dependence, unspecified, uncomplicated; F15.90 Other stimulant use, unspecified, uncomplicated; F12.90 Cannabis use, unspecified, uncomplicated; Z79.899 Other long term (current) drug therapy; Z59.00 Homelessness unspecified

== ENCOUNTER 2023-12-24 02:38 | Emergency (ER) | payer MEDICAID, OTHER ==
[~2023-12-24] VITALS: Ht 190.5 cm; Wt 68.9 kg
[~2023-12-24 02:38] MED LIST changes: +HALO5TAB33 PO; +TRAZ-186 PO
[2023-12-24 02:41] VITALS: BP 126/90; TEMP 98.3; O2SAT 99
[2023-12-25] MEDS ORDERED: CLON0.5T2 PO (11:18)
[2023-12-25] MEDS ORDERED: CLONI1TA PO (11:18)
[2023-12-25] MEDS ORDERED: QUET1TAB17 PO (11:18)
== END 2023-12-24 04:41 | disposition left against medical advice (07) ==
LOC: M ED 02:38
DX: Z53.21 Procedure and treatment not carried out due to patient leaving prior to being seen by health care provider (principal)

== ENCOUNTER 2023-12-25 10:58 | Emergency (ER) | payer OTHER ==
[~2023-12-25] VITALS: Ht 188 cm; Wt 69.4 kg
[2023-12-25 10:59] VITALS: BP 115/64; TEMP 96.6; O2SAT 100
[2023-12-25] MEDS ORDERED: CLONI1TA PO (11:18)
[2023-12-25] MEDS ORDERED: QUET1TAB17 PO (11:18)
[2023-12-25] MEDS ORDERED: CLON0.5T2 PO (11:18)
== END 2023-12-25 13:28 | disposition home or self-care (01) ==
LOC: M ED 10:58
DX: S52.202A Unspecified fracture of shaft of left ulna, initial encounter for closed fracture (principal); X58.XXXA Exposure to other specified factors, initial encounter; Y92.149 Unspecified place in prison as the place of occurrence of the external cause; Y93.9 Activity, unspecified; Y99.9 Unspecified external cause status; E11.9 Type 2 diabetes mellitus without complications; K21.9 Gastro-esophageal reflux disease without esophagitis; F17.200 Nicotine dependence, unspecified, uncomplicated; Z79.899 Other long term (current) drug therapy

== ENCOUNTER → 2024-01-08 | Outpatient (CLI) | payer OTHER ==
[~2024-01-08] MED LIST changes: +CLON0.5T2 PO; +CLONI1TA PO; +GABA-1172 PO; +GABA-1490 PO; -GABA-282 PO; -GABA600T4 PO; +QUET1TAB17 PO
== END ==
LOC: M SOG 11:45
PROVIDERS: ATTEND Physician Assistant
DX: S52.002A Unspecified fracture of upper end of left ulna, initial encounter for closed fracture (principal); M79.89 Other specified soft tissue disorders; X58.XXXA Exposure to other specified factors, initial encounter; Y92.9 Unspecified place or not applicable; Y93.9 Activity, unspecified; Y99.9 Unspecified external cause status

== ENCOUNTER → 2024-01-29 | Outpatient (CLI) | payer OTHER ==
[~2024-01-29] MED LIST changes: -GABA-1172 PO; -GABA-1490 PO; +GABA-282 PO; +GABA600T4 PO
[2024-01-29 16:54] LABS: ALBUMIN 4.2 G/DL (3.2-5.2); ALKALINE PHOSPHATASE 68 U/L (46-116); ALT/SGPT 112 U/L (7.0-40); AST/SGOT 58 U/L (<34); BILIRUBIN,TOTAL 0.5 MG/DL (0.3-1.2); BLOOD UREA NITROGEN 14 MG/DL (9-23); CALCIUM LEVEL 9.1 MG/DL (8.5-10.1); CARBON DIOXIDE LEVEL 27 MMOL/L (20-31); CHLORIDE LEVEL 104 MMOL/L (98-107); GLOMERULAR FILTRATION RATE > 60.0 (>60); GLUCOSE, FASTING 82 MG/DL (60-100); POTASSIUM SERUM 4.1 MMOL/L (3.5-5.1); SODIUM LEVEL 136 MMOL/L (136-145); TOTAL PROTEIN 8.4 G/DL (5.7-8.2)
[2024-01-29 16:55] LABS: FREE T4 1.05 NG/DL (0.89-1.76)
[2024-01-29 16:56] LABS: THYROID STIMULATING HORMONE 0.423 uIU/ML (0.55-4.78)
== END ==
LOC: M PLALAB 12:58
PROVIDERS: ATTEND Internal Medicine Infectious Disease
DX: B20 Human immunodeficiency virus [HIV] disease (principal); B18.2 Chronic viral hepatitis C; R79.89 Other specified abnormal findings of blood chemistry

== ENCOUNTER → 2024-02-12 | Outpatient (CLI) | payer OTHER | LOC: M SOG 07:53 | PROVIDERS: ATTEND Physician Assistant | DX: S52.202D Unspecified fracture of shaft of left ulna, subsequent encounter for closed fracture with routine healing (principal) ==

== ENCOUNTER → 2024-03-12 | Outpatient (CLI) | payer OTHER ==
[~2024-03-12] MED LIST changes: +GABA-1490 PO; -GABA600T4 PO
== END ==
LOC: M SOG 07:25
PROVIDERS: ATTEND Physician Assistant
DX: S52.202D Unspecified fracture of shaft of left ulna, subsequent encounter for closed fracture with routine healing (principal)

== ENCOUNTER 2024-06-13 20:40 | Emergency (ER) | payer OTHER ==
[~2024-06-13] VITALS: Ht 172.7 cm; Wt 128.7 kg
[~2024-06-13 20:40] MED LIST changes: +GABA-1172 PO; -GABA-282 PO
[2024-06-14 06:13] VITALS: BP 132/80; TEMP 97.6; O2SAT 99
== END 2024-06-14 06:17 | disposition home or self-care (01) ==
LOC: M ED 20:40
DX: J06.9 Acute upper respiratory infection, unspecified (principal); Z59.00 Homelessness unspecified; Z79.899 Other long term (current) drug therapy

== ENCOUNTER 2024-07-30 21:03 | Inpatient (IN) | payer MEDICAID, OTHER, SELFPAY ==
[~2024-07-30] VITALS: Ht 190.5 cm; Wt 77.7 kg
[2024-07-30 21:57] LABS: HEMATOCRIT 36.1 % (42.0-52.0); HEMOGLOBIN 12.3 g/dl (13.5-17.5); MEAN CORPUSCULAR HEMOGLOBIN 32.9 pg (27.0-33.0); MEAN CORPUSCULAR HGB CONC 34.1 g/dl (32.0-36.5); MEAN CORPUSCULAR VOLUME 96.5 fl (80.0-96.0); PLATELET COUNT, AUTOMATED 216 10^3/uL (150-450); RED BLOOD COUNT 3.74 10^6/uL (4.30-6.10); WHITE BLOOD COUNT 10.7 10^3/uL (4.0-10.0)
[2024-07-30 22:26] LABS: ETHYL ALCOHOL (ETHANOL) < 0.003 % (0.000-0.010)
[2024-07-30 22:27] LABS: SALICYLATE LEVEL < 3.0 MG/DL (<30)
[2024-07-30 22:28] LABS: ALBUMIN 3.7 G/DL (3.2-5.2); ALKALINE PHOSPHATASE 63 U/L (40-129); ALT/SGPT 17 U/L (7.0-40); AST/SGOT 33 U/L (<34); BILIRUBIN,DIRECT 0.2 MG/DL (<0.4); BILIRUBIN,TOTAL 0.7 MG/DL (0.3-1.2); BLOOD UREA NITROGEN 14 MG/DL (9-23); CALCIUM LEVEL 8.9 MG/DL (8.5-10.1); CARBON DIOXIDE LEVEL 26 MMOL/L (20-31); CHLORIDE LEVEL 104 MMOL/L (98-107); CREATININE FOR GFR 1.04 MG/DL (0.70-1.30); GLOMERULAR FILTRATION RATE > 60.0 (>60); GLUCOSE, FASTING 94 MG/DL (60-100); POTASSIUM SERUM 4.1 MMOL/L (3.5-5.1); SODIUM LEVEL 139 MMOL/L (136-145); TOTAL PROTEIN 8.1 G/DL (5.7-8.2)
[2024-07-30 22:30] LABS: THYROID STIMULATING HORMONE 0.186 uIU/ML (0.55-4.78)
[2024-07-31 01:44] LABS: AMPHETAMINES LEVEL URINE NEGATIVE (NEGATIVE); BARBITURATES URINE NEGATIVE (NEGATIVE); BENZODIAZEPINES URINE NEGATIVE (NEGATIVE); COCAINE METABOLITE URINE NEGATIVE (NEGATIVE); METHADONE URINE NEGATIVE (NEGATIVE); OPIATES URINE NEGATIVE (NEGATIVE); PHENCYCLIDINE URINE NEGATIVE (NEGATIVE)
[2024-07-31 02:16] LABS: CANNABINOIDS URINE POSITIVE (NEGATIVE)
[2024-07-31] MEDS ORDERED: MOM 30ML SUSPENSION UDC PO PRN (04:30)
[2024-07-31] MEDS ORDERED: OLANZapine ORAL DISINTEGRATING TAB 5MG PO PRN (04:30)
[2024-07-31] MEDS ORDERED: MAALOX 30 ML SUSP *UDC PO PRN (04:30)
[2024-07-31 08:58] VITALS: BP 112/56; TEMP 98; O2SAT 98
[2024-07-31] MEDS ORDERED: HOME MED LIST COMPLETE! XX SCH (09:45)
[2024-07-31] MEDS: NICOTINE 21MG/24HR 1 EA TRANSDERMAL TD SCH (15:46)
[2024-07-31] MEDS: traZODone 50 MG TAB PO PRN (20:37)
[2024-08-01 06:31] VITALS: BP 120/71; TEMP 98.6; O2SAT 99
[2024-08-01] MEDS: IBUPROFEN 400MG TAB PO PRN (08:21)
[2024-08-01] MEDS: BIKTARVY PO SCH (10:04)
[2024-08-01] MEDS: DIVALPROEX 500 MG TAB PO SCH (12:08)
[2024-08-01] MEDS: OLANZapine 5 MG TAB PO SCH (12:08)
[2024-08-01] MEDS: FLUZONE VACCINE TRIVALENT PF(2024-25) 0.5ML SYRINGE IM.IMMUN ONE (14:25)
[2024-08-01 16:54] VITALS: BP 122/71; TEMP 97.3; O2SAT 98
[2024-08-02] MEDS: ACETAMINOPHEN 325 MG TAB PO PRN (08:54)
[2024-08-02] MEDS: AMOXICILLIN 500 MG CAP PO SCH (14:24)
[2024-08-02 15:43] VITALS: BP 135/72; TEMP 98.4; O2SAT 100
[2024-08-03 16:20] VITALS: BP 129/70; TEMP 98.6; O2SAT 100
[2024-08-04 16:39] VITALS: BP 135/70; TEMP 98.3; O2SAT 100
[2024-08-04] MEDS: DIVALPROEX 250MG TAB PO SCH (20:46)
[2024-08-05 06:26] VITALS: BP 141/64; TEMP 96.9; O2SAT 100
[2024-08-05 15:59] VITALS: BP 122/77; TEMP 97.9; O2SAT 100
[2024-08-06 06:38] VITALS: BP 144/92; TEMP 97.1; O2SAT 98
[2024-08-06 15:34] VITALS: BP 132/64; TEMP 98.5; O2SAT 97
[2024-08-06] MEDS: OLANZapine 5 MG TAB PO SCH (20:21)
[2024-08-07 06:33] VITALS: BP 107/65; TEMP 96.8; O2SAT 99
[2024-08-07] MEDS: OLANZapine 5 MG TAB PO SCH (08:31)
[2024-08-07 16:54] VITALS: BP 137/96; TEMP 97.4; O2SAT 100
[2024-08-07] MEDS: diphenhydrAMINE 25MG CAP PO PRN (20:23)
[2024-08-08 06:49] VITALS: BP 107/60; TEMP 97.9; O2SAT 100
[2024-08-08 15:14] VITALS: BP 121/55; TEMP 97.7; O2SAT 99
[2024-08-09 06:57] VITALS: BP 140/73; TEMP 97.4; O2SAT 99
[2024-08-09 16:19] VITALS: BP 115/63; TEMP 98; O2SAT 99
[2024-08-10 06:44] VITALS: BP 110/62; TEMP 97.5; O2SAT 99
[2024-08-10 16:40] VITALS: BP 130/63; TEMP 98.5; O2SAT 99
[2024-08-11 06:24] VITALS: BP 111/67; TEMP 97.3; O2SAT 100
[2024-08-11] MEDS ORDERED: TRAZ-252 PO (11:50)
[2024-08-11] MEDS ORDERED: DEPA250T32 PO (11:50)
[2024-08-11] MEDS ORDERED: OLAN1TAB16 PO ×2 (11:50)
== END 2024-08-11 14:15 | disposition home or self-care (01) | DRG 750 ==
LOC: M ED 21:03 → M ED INP 07-31 04:28 → M PSY 07-31 08:59
PROVIDERS: ADMIT Psychiatry & Neurology Neurology; ATTEND Psychiatry & Neurology Psychiatry
DX: F20.9 Schizophrenia, unspecified (principal); F17.200 Nicotine dependence, unspecified, uncomplicated; B20 Human immunodeficiency virus [HIV] disease; E73.9 Lactose intolerance, unspecified; Z81.8 Family history of other mental and behavioral disorders; Z59.00 Homelessness unspecified; Z79.899 Other long term (current) drug therapy

== ENCOUNTER → 2024-12-08 | Outpatient (CLI) | payer MEDICAID, OTHER ==
[~2024-12-08] MED LIST changes: +DIVA-65 PO; +OLAN1TAB16 PO
[2024-12-08 16:52] LABS: ALBUMIN 4.2 G/DL (3.2-5.2); ALKALINE PHOSPHATASE 62 U/L (40-129); ALT/SGPT 24 U/L (7.0-40); AST/SGOT 40 U/L (<34); BILIRUBIN,TOTAL 0.8 MG/DL (0.3-1.2); BLOOD UREA NITROGEN 14 MG/DL (9-23); CALCIUM LEVEL 9.1 MG/DL (8.5-10.1); CARBON DIOXIDE LEVEL 22 MMOL/L (20-31); CHLORIDE LEVEL 105 MMOL/L (98-107); CREATININE FOR GFR 0.77 MG/DL (0.70-1.30); GLOMERULAR FILTRATION RATE > 90.0 (>60); GLUCOSE, FASTING 108 MG/DL (60-100); POTASSIUM SERUM 3.9 MMOL/L (3.5-5.1); SODIUM LEVEL 137 MMOL/L (136-145)
[2024-12-08 16:54] LABS: FREE T4 1.29 NG/DL (0.89-1.76)
[2024-12-08 16:55] LABS: THYROID STIMULATING HORMONE 0.173 uIU/ML (0.55-4.78)
[2024-12-09 15:12] LABS: TOTAL T3 99.5 NG/DL (60.0-181.0)
[2024-12-10 17:17] LABS: HCV RNA QUANTITATION <15 NOT DETECTED IU/mL (NOT DETECTED); HCV RNA log10 <1.18 NOT DETECTED Log IU/mL (NOT DETECTED)
[2024-12-10 17:22] LABS: % CD4 41 % (30-61); %CD8 43 % (12-42); ABSOLUTE CD4 CELLS 2139 cells/uL (490-1740); ABSOLUTE CD8 CELLS 2206 cells/uL (180-1170); ABSOLUTE LYMPHOCYTES 5172 cells/uL (850-3900); CD4 CD8 RATIO 0.97 (0.86-5.00)
[2024-12-13 02:48] LABS: HIV-1 RNA PCR QUANT 2 NOT DETECTED copies/mL (NOT DETECTED); HIV-1 RNA PCR QUANT 3 NOT DETECTED (NOT DETECTED)
[2024-12-19 08:30] LABS: ALPHA 2-MACROGLOBULINS,QN 143 mg/dL (106-279); ALT (SGPT) P5P 14 U/L (9-46); APOLIPOPROTEIN A-1 176 mg/dL (94-176); BILIRUBIN, TOTAL 0.7 mg/dL (0.2-1.2); FIBROSIS SCORE 0.12; FIBROSIS STAGE NO FIBROSIS (F0); GGT 13 U/L (3-90); HAPTOGLOBIN 42 mg/dL (43-212); NECROINFLAM ACT GRADE NO ACTIVITY (A0); NECROINFLAM ACT SCORE 0.03
== END ==
LOC: M PLALAB 13:52
PROVIDERS: ATTEND Internal Medicine Infectious Disease
DX: B20 Human immunodeficiency virus [HIV] disease (principal); R79.89 Other specified abnormal findings of blood chemistry; B18.2 Chronic viral hepatitis C

== ENCOUNTER 2025-01-17 19:54 | Emergency (ER) | payer OTHER ==
[~2025-01-17] VITALS: Ht 190.5 cm; Wt 85.4 kg
[2025-01-17 19:59] VITALS: BP 133/70; TEMP 98.6; O2SAT 98
== END 2025-01-17 20:22 | disposition left against medical advice (07) ==
LOC: M ED 19:54
DX: Z53.21 Procedure and treatment not carried out due to patient leaving prior to being seen by health care provider (principal)